=== PATIENT | female | born 1955 | race Caucasian/White ===

== ENCOUNTER 2020-09-05 09:49 | Outpatient (REF) | payer OTHER, SELFPAY ==
[2020-09-05 11:15] LABS: MANUAL DIFF FLAG NO
[2020-09-05 11:26] LABS: Basophils Percent Auto 0.7 % (0-2); Eosinophils Absolute Auto 0.1 X10*3/uL (0.0-0.4); Eosinophils Percent Auto 1.7 % (0-4); Hematocrit 42.7 % (37-47); Hemoglobin 14.4 g/dl (12.0-16.0); Imm Gran Abs Auto 0.02 X10*3/uL (0.00-0.03); Imm Gran Pct Auto 0.3 % (0.0-0.4); Lymphocytes Absolute Auto 1.6 X10*3/uL (1.2-4.9); Lymphocytes Percent Auto 28.3 % (20-40); Mean Corpuscular HGB Conc 33.7 g/dl (31.0-35.0); Mean Platelet Volume 11.6 fL (9.4-12.3); Monocytes Absolute Auto 0.4 X10*3/uL (0.1-1.2); Neutrophils Absolute Auto 3.6 X10*3/uL (2.0-8.3); Platelet Count 185 X10*3/uL (160-400); Red Blood Count 4.64 X10*6/uL (4.20-5.50); Red Cell Distribution Width 11.9 % (11.0-16.0); White Blood Count 5.8 X10*3/uL (4.8-10.8)
[2020-09-05 11:51] LABS: Estimated Average Glucose 177 mg/dL; Hemoglobin A1c % 7.8 %
[2020-09-05 12:01] LABS: Creatinine Urine 33.63 mg/dL; Microalbum/Creatinine Ratio Ur 14.8 ug/mg cr
[2020-09-05 12:14] LABS: Alanine Aminotransferase 27 U/L (0-31); Albumin Level 4.3 g/dL (3.5-5.0); Alkaline Phosphatase 74 U/L (39-117); Anion Gap 12 (12-20); Aspartate Amino Transferase 20 U/L (5-31); Bilirubin Total 0.7 mg/dL (0.0-1.0); Blood Urea Nitrogen 14 mg/dL (9-16); Calcium 8.9 mg/dL (8.4-10.2); Carbon Dioxide 28 mmol/L (22-29); Chloride 103 mmol/L (96-108); Cholesterol 151 mg/dL; Estimated Glomerular Filt Rate > 60; Glucose Fasting 164 mg/dL (60-99); HDL Cholesterol 42 mg/dL; Iron 115 mcg/dL (30-160); LDL Cholesterol Calculated 95 mg/dl; Percent Iron Saturation 32 % (15-50); Sodium 139 mmol/L (135-145); Total Iron Binding Capacity 355 mcg/dL (228-428); Total Protein 6.6 g/dL (6.5-8.0); Triglycerides 71 mg/dL; Unsaturated Iron Binding 240 ug/dL
[2020-09-05 12:29] LABS: Folate 14.3 ng/mL (> or = 4.0); Vitamin B12 1168 pg/mL (200-900)
[2020-09-10 13:57] LABS: Vitamin D 25-OH, D2 <4 ng/mL; Vitamin D 25-OH, D3 54 ng/mL; Vitamin D 25-OH, Total 54 ng/mL (30-100)
== END 2020-09-05 09:50 | disposition home or self-care (01) ==
LOC: HO.LAB 09:49
PROVIDERS: PCP Internal Medicine; Visit Provider Internal Medicine
DX: E55.9 Vitamin D deficiency, unspecified (principal); E11.9 Type 2 diabetes mellitus without complications; D64.9 Anemia, unspecified
CPT/HCPCS: 36415; 80053; 80061; 82043; 82306; 82607; 82746; 83036; 83540; 85025

== ENCOUNTER 2020-12-21 10:19 | Outpatient (REF) | payer OTHER, SELFPAY ==
[2020-12-21 11:07] LABS: Hemoglobin 14.4 g/dl (12.0-16.0); Mean Corpuscular HGB Conc 33.5 g/dl (31.0-35.0); Mean Corpuscular Hemoglobin 30.8 pg (27.0-33.0); Mean Corpuscular Volume 92.1 fL (80-98); Mean Platelet Volume 11.2 fL (9.4-12.3); Platelet Count 203 X10*3/uL (160-400); Red Blood Count 4.67 X10*6/uL (4.20-5.50); Red Cell Distribution Width 12.3 % (11.0-16.0); White Blood Count 6.2 X10*3/uL (4.8-10.8)
[2020-12-21 11:19] LABS: Estimated Average Glucose 174 mg/dL; Hemoglobin A1c % 7.7 %
[2020-12-21 11:39] LABS: Alanine Aminotransferase 18 U/L (0-31); Albumin Level 4.4 g/dL (3.5-5.0); Alkaline Phosphatase 74 U/L (39-117); Anion Gap 12 (12-20); Aspartate Amino Transferase 14 U/L (5-31); Bilirubin Total 0.7 mg/dL (0.0-1.0); Blood Urea Nitrogen 13 mg/dL (9-16); Calcium 9.2 mg/dL (8.4-10.2); Carbon Dioxide 29 mmol/L (22-29); Chloride 102 mmol/L (96-108); Cholesterol 170 mg/dL; Estimated Glomerular Filt Rate > 60; Glucose Fasting 167 mg/dL (60-99); HDL Cholesterol 50 mg/dL; Iron 161 mcg/dL (30-160); LDL Cholesterol Calculated 105 mg/dl; Percent Iron Saturation 46 % (15-50); Potassium 4.1 mmol/L (3.3-5.1); Sodium 139 mmol/L (135-145); Total Iron Binding Capacity 349 mcg/dL (228-428); Total Protein 6.8 g/dL (6.5-8.0); Triglycerides 77 mg/dL; Unsaturated Iron Binding 188 ug/dL
[2020-12-21 12:00] LABS: Thyroid Stimulating Hormone 1.81 uIU/mL (0.32-4.0)
[2020-12-21 12:40] LABS: Vitamin B12 > 2000 pg/mL (200-900)
[2020-12-25 12:02] LABS: Intrinsic Factor Antibodies Negative (Negative)
== END 2020-12-21 10:20 | disposition home or self-care (01) ==
LOC: HO.LAB 10:19
PROVIDERS: PCP Internal Medicine; Visit Provider Internal Medicine
DX: E55.9 Vitamin D deficiency, unspecified (principal); D64.9 Anemia, unspecified; E11.9 Type 2 diabetes mellitus without complications; E53.8 Deficiency of other specified B group vitamins
CPT/HCPCS: 36415; 80053; 80061; 82043; 82607; 83036; 83540; 84443; 85027; 86340

== ENCOUNTER 2021-09-13 09:16 | Outpatient (REF) | payer OTHER, SELFPAY ==
[2021-09-13 10:08] LABS: Hematocrit 41.4 % (37.0-47.0); Hemoglobin 13.7 g/dl (12.0-16.0); Mean Corpuscular HGB Conc 33.1 g/dl (31.0-35.0); Mean Corpuscular Hemoglobin 30.4 pg (27.0-33.0); Platelet Count 195 X10*3/uL (160-400); Red Cell Distribution Width 12.4 % (11.0-16.0); White Blood Count 6.2 X10*3/uL (4.8-10.8)
[2021-09-13 10:25] LABS: Estimated Average Glucose 177 mg/dL; Hemoglobin A1c % 7.8 %
[2021-09-13 10:36] LABS: Alanine Aminotransferase 21 U/L (0-31); Albumin Level 4.3 g/dL (3.5-5.0); Alkaline Phosphatase 73 U/L (39-117); Anion Gap 11 (12-20); Aspartate Amino Transferase 16 U/L (5-31); Bilirubin Total 0.5 mg/dL (0.0-1.0); Blood Urea Nitrogen 7 mg/dL (9-16); Calcium 9.1 mg/dL (8.4-10.2); Carbon Dioxide 28 mmol/L (22-29); Chloride 104 mmol/L (96-108); Cholesterol 186 mg/dL; Estimated Glomerular Filt Rate > 60; Glucose Fasting 143 mg/dL (60-99); HDL Cholesterol 48 mg/dL; Iron 120 mcg/dL (30-160); LDL Cholesterol Calculated 119 mg/dl; Percent Iron Saturation 36 % (15-50); Potassium 4.2 mmol/L (3.3-5.1); Sodium 139 mmol/L (135-145); Total Iron Binding Capacity 329 mcg/dL (228-428); Total Protein 6.6 g/dL (6.5-8.0); Triglycerides 98 mg/dL; Unsaturated Iron Binding 209 ug/dL
[2021-09-13 10:50] LABS: Creatinine Urine 40.95 mg/dL; Microalbum/Creatinine Ratio Ur 19.5 ug/mg cr
[2021-09-13 10:59] LABS: Vitamin D 25-OH Total 39.4 ng/mL (>30)
[2021-09-13 13:04] LABS: Folate 16.1 ng/mL (> or = 4.0); Vitamin B12 637 pg/mL (200-900)
== END 2021-09-13 09:17 | disposition home or self-care (01) ==
LOC: HO.LAB 09:16
PROVIDERS: PCP Internal Medicine; Visit Provider Internal Medicine
DX: D64.9 Anemia, unspecified (principal); E11.9 Type 2 diabetes mellitus without complications; E53.8 Deficiency of other specified B group vitamins; E55.9 Vitamin D deficiency, unspecified
CPT/HCPCS: 36415; 80053; 80061; 82043; 82306; 82607; 82746; 83036; 83540; 85027

== ENCOUNTER 2021-12-18 08:49 | Outpatient (REF) | payer OTHER, SELFPAY ==
[2021-12-18 09:35] LABS: Hematocrit 43.8 % (37.0-47.0); Hemoglobin 14.4 g/dl (12.0-16.0); Mean Corpuscular HGB Conc 32.9 g/dl (31.0-35.0); Mean Corpuscular Hemoglobin 30.4 pg (27.0-33.0); Mean Corpuscular Volume 92.4 fL (80.0-98.0); Platelet Count 214 X10*3/uL (160-400); Red Blood Count 4.74 X10*6/uL (4.20-5.50); Red Cell Distribution Width 12.4 % (11.0-16.0); White Blood Count 6.3 X10*3/uL (4.8-10.8)
[2021-12-18 09:43] LABS: Estimated Average Glucose 143 mg/dL; Hemoglobin A1c % 6.6 %
[2021-12-18 10:06] LABS: Alanine Aminotransferase 24 U/L (0-31); Albumin Level 4.3 g/dL (3.5-5.0); Alkaline Phosphatase 70 U/L (39-117); Anion Gap 13 (12-20); Aspartate Amino Transferase 17 U/L (5-31); Bilirubin Total 0.7 mg/dL (0.0-1.0); Blood Urea Nitrogen 9 mg/dL (9-16); Calcium 9.5 mg/dL (8.4-10.2); Carbon Dioxide 29 mmol/L (22-29); Chloride 103 mmol/L (96-108); Cholesterol 184 mg/dL; Estimated Glomerular Filt Rate > 60; Glucose Fasting 132 mg/dL (60-99); HDL Cholesterol 48 mg/dL; LDL Cholesterol Calculated 116 mg/dl; Potassium 4.5 mmol/L (3.3-5.1); Sodium 140 mmol/L (135-145); Triglycerides 102 mg/dL
[2021-12-18 10:31] LABS: Vitamin D 25-OH Total 39.2 ng/mL (>30)
[2021-12-19 21:24] LABS: Folate 9.3 ng/mL (> or = 4.0); Vitamin B12 594 pg/mL (200-900)
== END 2021-12-18 08:50 | disposition home or self-care (01) ==
LOC: HO.LAB 08:49
PROVIDERS: PCP Internal Medicine; Visit Provider Internal Medicine
DX: E11.9 Type 2 diabetes mellitus without complications (principal); D64.9 Anemia, unspecified; E53.8 Deficiency of other specified B group vitamins; E55.9 Vitamin D deficiency, unspecified
CPT/HCPCS: 36415; 80053; 80061; 82306; 82607; 82746; 83036; 85027

== ENCOUNTER 2022-02-05 15:14 | Outpatient (REF) | payer OTHER, SELFPAY ==
--- NOTE | ~2022-02-05 | MM_ITS ---
EXAMINATION: MM SCREENING DIGITAL BREAST TOMOSYNTHESIS, BILATERAL CLINICAL INFORMATION: Screening. Asymptomatic. The lifetime risk of breast cancer based on the Tyrer-Cuzick Model is 10%. COMPARISON: Outside mammography: 02/16/2021, 11/01/2019, 10/28/2018 ([facility]). TECHNIQUE: Digital breast tomosynthesis is performed in both the craniocaudal and mediolateral oblique views along with computer-aided detection (CAD). Synthesized 2D images are generated from the tomosynthesis. FINDINGS: There are scattered areas of fibroglandular density (ACR BI-RADS breast composition Category b). There are no significant masses, abnormal calcifications, or other abnormalities. Parenchymal pattern is similar to prior studies. There is no developing density or architectural abnormality. There are some stable rounded coarse calcifications again seen anterior left breast. The axilla and skin contours are unremarkable. No significant changes. MM/MM tomosynthesis screening BI IMPRESSION: No mammographic evidence of malignancy. ASSESSMENT: BI-RADS 2: Benign RECOMMENDATION: Routine annual mammography screening. This patient's information was entered into a reminder system with a target due date for their next mammogram.
== END 2022-02-05 15:15 | disposition home or self-care (01) ==
LOC: HO.MAMMO 15:14
PROVIDERS: Visit Provider Internal Medicine
DX: Z12.31 Encounter for screening mammogram for malignant neoplasm of breast (principal)
CPT/HCPCS: 77063; 77067

== ENCOUNTER 2022-09-13 09:32 | Outpatient (REF) | payer MEDICARE, OTHER, SELFPAY ==
[2022-09-13 10:35] LABS: Hemoglobin 14.6 g/dl (12.0-16.0); Mean Corpuscular HGB Conc 32.4 g/dl (31.0-35.0); Mean Corpuscular Hemoglobin 29.7 pg (27.0-33.0); Mean Corpuscular Volume 91.6 fL (80.0-98.0); Mean Platelet Volume 11.5 fL (9.4-12.3); Platelet Count 181 X10*3/uL (160-400); Red Blood Count 4.91 X10*6/uL (4.20-5.50); Red Cell Distribution Width 12.8 % (11.0-16.0); White Blood Count 7.1 X10*3/uL (4.8-10.8)
[2022-09-13 10:45] LABS: Estimated Average Glucose 177 mg/dL; Hemoglobin A1c % 7.8 %
[2022-09-13 11:25] LABS: Alanine Aminotransferase 27 U/L (0-31); Albumin Level 4.6 g/dL (3.5-5.0); Alkaline Phosphatase 92 U/L (39-117); Anion Gap 17 (12-20); Aspartate Amino Transferase 19 U/L (5-31); Bilirubin Total 0.7 mg/dL (0.0-1.0); Blood Urea Nitrogen 11 mg/dL (9-16); Calcium 9.3 mg/dL (8.4-10.2); Carbon Dioxide 24 mmol/L (22-29); Chloride 102 mmol/L (96-108); Estimated Glomerular Filt Rate > 60; Glucose Fasting 179 mg/dL (60-99); Potassium 4.2 mmol/L (3.3-5.1); Sodium 139 mmol/L (135-145); Total Protein 7.4 g/dL (6.5-8.0)
[2022-09-13 11:44] LABS: Vitamin B12 1462 pg/mL (200-900)
[2022-09-13 12:29] LABS: Folate 9.4 ng/mL (> or = 4.0)
== END 2022-09-13 09:33 | disposition home or self-care (01) ==
LOC: HO.LAB 09:32
PROVIDERS: PCP Internal Medicine; Visit Provider Internal Medicine
DX: E11.9 Type 2 diabetes mellitus without complications (principal); E55.9 Vitamin D deficiency, unspecified; D64.9 Anemia, unspecified
CPT/HCPCS: 36415; 80053; 82306; 82607; 82746; 83036; 85027

== ENCOUNTER 2022-11-19 14:28 | Outpatient (REF) | payer MEDICARE, OTHER, SELFPAY ==
--- NOTE | ~2022-11-19 | MM_ITS ---
EXAMINATION: BONE DENSITOMETRY CLINICAL INDICATION: Asymptomatic menopausal state. COMPARISON: Baseline BD dated 05/24/2020. TECHNIQUE: Using a [employer] DXA System (software version: 13.1) manufactured by [employer], dual-energy x-ray absorptiometry was performed of the lumbar spine and left hip. The images are of good technical quality. Summary results are attached. FINDINGS: AP SPINE L1-L4: Current: BMD 1.181 g/cm2, Z-score 0.9, T-score 0.0, normal, 5.2% increase from baseline (<5% change is not significant). Baseline: BMD 1.123 g/cm2. LEFT FEMUR, NECK: Current: BMD 0.830 g/cm2, Z-score -0.5, T-score -1.5, osteopenia. Baseline: BMD 0.858 g/cm2. LEFT FEMUR, TOTAL: Current: BMD 0.877 g/cm2, Z-score -0.3, T-score -1.0, normal, 1.7% decrease from baseline (<5% change is not significant). Baseline: BMD 0.892 g/cm2. IDENTIFIED RISK FACTORS: History of fracture (adult), menopause, part of stomach removed, secondary osteoporosis. HISTORY OF FRACTURE: Ankle. MEDICATIONS: Calcium, vitamin D. MM/XR DEXA axial skeleton IMPRESSION: 1. DIAGNOSIS: Osteopenia based on the lowest T-score value of -1.5 in the femoral neck applying World Health Organization criteria. 2. 10-YEAR FRACTURE RISK PREDICTION, FRAX: Major osteoporotic fracture (clinical spine, forearm, hip or shoulder) 14.7%. Hip fracture 1.6%. 3. Treatment Recommendations: NOF guidelines recommend consideration for treatment in postmenopausal women and men age 50 and older presenting with the following: -A hip or vertebral (clinical or morphometric) fracture. -T-score less than or equal to -2.5 at the femoral neck or spine after appropriate evaluation to exclude secondary causes. -Low bone mass at the hip or spine and a 10-year fracture probability by FRAX of greater than or equal to 3% for hip fracture or greater than or equal to 20% for major osteoporotic fracture based on the [place] adapted WHO algorithm. 4. Other Recommendations: All treatment decisions require clinical judgment and consideration of individual patient factors, including patient preferences, comorbidities, previous drug use, risk factors not captured in the FRAX model (e.g. frailty, falls, vitamin D deficiency, increased bone turnover, interval significant decline in bone density) and possible under or overestimation of fracture risk by FRAX. Additional medical evaluation for secondary cause of low bone mineral density may be appropriate. FUTURE SCAN RECOMMENDATION: People with diagnosed cases of osteoporosis or at high risk for fracture should have regular bone mineral density tests. For patients eligible for Medicare, routine testing is allowed once every 2 years. The testing frequency can be increased to one year for patients who have rapidly progressing disease, those who are receiving or discontinuing medical therapy to restore bone mass, or have additional risk factors.
== END 2022-11-19 14:29 | disposition home or self-care (01) ==
LOC: HO.MAMMO 14:28
PROVIDERS: PCP Internal Medicine; Visit Provider Internal Medicine
DX: Z13.820 Encounter for screening for osteoporosis (principal); Z78.0 Asymptomatic menopausal state
CPT/HCPCS: 77080

== ENCOUNTER → 2022-11-20 14:29 | Outpatient (BNVA) | payer MEDICARE, OTHER, SELFPAY | PROVIDERS: PCP Internal Medicine; Visit Provider Physician Assistant | DX: Z86.010 Personal history of colon polyps (principal) | CPT/HCPCS: 99202 ==

== ENCOUNTER 2023-01-23 16:21 | Outpatient (REF) | payer MEDICARE, OTHER, SELFPAY ==
[2023-01-23 18:03] LABS: Creatinine Urine 70.91 mg/dL; Microalbum/Creatinine Ratio Ur 69.1 ug/mg cr
[2023-01-23 18:07] LABS: Estimated Average Glucose 203 mg/dL; Hemoglobin A1c % 8.7 %
[2023-01-23 18:14] LABS: Alanine Aminotransferase 28 U/L (0-31); Albumin Level 4.4 g/dL (3.5-5.0); Alkaline Phosphatase 74 U/L (39-117); Anion Gap 15 (12-20); Aspartate Amino Transferase 21 U/L (5-31); Bilirubin Total 0.7 mg/dL (0.0-1.0); Blood Urea Nitrogen 10 mg/dL (9-16); Calcium 9.5 mg/dL (8.4-10.2); Carbon Dioxide 26 mmol/L (22-29); Chloride 104 mmol/L (96-108); Cholesterol 194 mg/dL; Estimated Glomerular Filt Rate > 60; Glucose Fasting 123 mg/dL (60-99); HDL Cholesterol 52 mg/dL; Iron 91 mcg/dL (30-160); LDL Cholesterol Calculated 117 mg/dl; Percent Iron Saturation 24 % (15-50); Potassium 4.1 mmol/L (3.3-5.1); Sodium 141 mmol/L (135-145); Total Iron Binding Capacity 378 mcg/dL (228-428); Total Protein 6.8 g/dL (6.5-8.0); Triglycerides 126 mg/dL; Unsaturated Iron Binding 287 ug/dL
[2023-01-23 18:35] LABS: TSH reflex Free T4 1.89 uIU/mL (0.32-4.0); Vitamin B12 1506 pg/mL (200-900)
== END 2023-01-23 16:22 | disposition home or self-care (01) ==
LOC: HO.LAB 16:21
PROVIDERS: PCP Internal Medicine; Visit Provider Internal Medicine
DX: Z00.00 Encounter for general adult medical examination without abnormal findings (principal); E55.9 Vitamin D deficiency, unspecified; D64.9 Anemia, unspecified; E11.9 Type 2 diabetes mellitus without complications; E53.8 Deficiency of other specified B group vitamins
CPT/HCPCS: 36415; 80053; 80061; 82043; 82607; 83036; 83540; 84443

== ENCOUNTER 2023-02-12 13:52 | Outpatient (REF) | payer MEDICARE, OTHER, SELFPAY ==
--- NOTE | ~2023-02-12 | MM_ITS ---
EXAMINATION: MM SCREENING DIGITAL BREAST TOMOSYNTHESIS, BILATERAL CLINICAL INFORMATION: Screening. Asymptomatic. The lifetime risk of breast cancer based on the Tyrer-Cuzick Model is 9%. COMPARISON: Mammography: February 05, 2022 and studies dating back to October 28, 2018 TECHNIQUE: Digital breast tomosynthesis is performed in both the craniocaudal and mediolateral oblique views along with computer-aided detection (CAD). Synthesized 2D images are generated from the tomosynthesis. FINDINGS: There are scattered areas of fibroglandular density (ACR BI-RADS breast composition Category b). There are no significant masses, abnormal calcifications, or other abnormalities. MM/MM tomosynthesis screening BI IMPRESSION: No significant changes from prior exam. ASSESSMENT: BI-RADS 1: Negative RECOMMENDATION: Routine annual mammography screening. This patient's information was entered into a reminder system with a target due date for their next mammogram.
== END 2023-02-12 13:53 | disposition home or self-care (01) ==
LOC: HO.MAMMO 13:52
PROVIDERS: PCP Internal Medicine; Visit Provider Internal Medicine
DX: Z12.31 Encounter for screening mammogram for malignant neoplasm of breast (principal)
CPT/HCPCS: 77063; 77067

== ENCOUNTER 2023-02-18 12:15 | Day surgery (SDC) | payer MEDICARE, OTHER, SELFPAY ==
[2023-02-05 12:37] VITALS: BMI 28.4
--- NOTE | 2023-02-17 13:18 | HO.ANESPROP2 ---
HPI - Anesthesia Eval Consult details Narrative: 67yo F for Colonoscopy [facility] Active Problems Active Problems: All Active Problems (Updated 11/20/22 @ 15:08 by Linda Dowling PA-C) H/O gastric bypass (Acute) History of adenomatous polyp of colon (Acute) Postmenopausal (Acute) PTSD (post-traumatic stress disorder) (Acute) Knee injury (Acute) Vitamin B 12 deficiency (Acute) Annual physical exam (Acute) Normal Pap smear (Acute) Osteopenia (Acute) Mammogram normal (Acute) Dysplastic nevus of face (Acute) Vitamin D deficiency (Acute) Anemia (Acute) DM type 2 (diabetes mellitus, type 2) (Acute) Past Medical History Medical History (Updated 11/20/22 @ 15:08 by Linda Dowling PA-C) Anemia Annual physical exam DM type 2 (diabetes mellitus, type 2) Dysplastic nevus of face History of mammogram Iron deficiency Knee injury Mammogram normal Normal Pap smear Osteopenia PTSD (post-traumatic stress disorder) Vitamin B 12 deficiency Vitamin D deficiency Family History Family History (Updated 01/27/23 @ 07:50 by Doris Devries [facility]) Father Cancer Mother No problems noted. Brother Substance use disorder Brother No problems noted. Sister No problems noted. Son No problems noted. 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: No Hearing needs: No Vision needs: Yes Meds Allergies Allergy/AdvReac Type Severity Reaction Status Date / Time No Known Allergies Allergy Verified 01/27/23 07:49 Home Medications Medication Instructions Recorded Confirmed Last Taken Type calcium carbonate [Calcium 600] 600 mg PO DAILY 09/18/20 02/05/23 Unknown History magnesium citrate 100 mg tablet 100 mg PO DAILY 09/18/20 02/05/23 Unknown History mecobalamin (vitamin B12) 5,000 5,000 mcg PO DAILY 09/18/20 02/05/23 Unknown History mcg disintegrating tablet omega 1-zpa-sco-fish oil 1,000 mg 2 cap PO DAILY 12/25/20 02/05/23 Unknown History (120 mg-180 mg) capsule (Fish Oil) Exam Exam Date and Time: February 17, 2023 1318 Height,Weight and Vital Signs: Height 5 ft 10 in Weight 89.811 kg Pertinent Lab Results Pertinent Lab Results: Laboratory Tests 09/13/22 01/23/23 09:51 16:38 WBC 7.1 Hgb 14.6 Hct 45.0 Plt Count 181 Sodium 141 Potassium 4.1 Chloride 104 Carbon Dioxide 26 BUN 10 Creatinine 0.71 Assessment and Plan Assessment Anesthesia Assessment: Chart Reviewed
[2023-02-18 12:23] VITALS: BP 144/82; PULSE 64; RESP 20; TEMP 36.4; O2SAT 98
[2023-02-18 12:42] LABS: Glucose, Whole Blood 126 mg/dL (60-115)
--- NOTE | 2023-02-18 12:42 | P.HPSUR_ITS ---
Pre-Procedural Eval Section A Date of Service: 02/18/23 Section B Chief Complaint: Personal history of colonic polyps Relevant Family History (Specify if Yes): No Relevant Social History: None Present Medications: see Short Stay Collaborative assessment Medical History: Significant History (Anemia Annual physical exam DM type 2 (diabetes mellitus, type 2) Dysplastic nevus of face History of mammogram Iron deficiency Knee injury Mammogram normal Normal Pap smear Osteopenia PTSD (post- traumatic stress disorder) Vitamin B 12 deficiency Vitamin D deficiency) History of Previous Operations: Relevant previous surgery/procedure and date(s) (H/O gastric bypass History of colonoscopy History of hemicolectomy) Allergies: Allergies Allergy/AdvReac Type Severity Reaction Status Date / Time No Known Allergies Allergy Verified 01/27/23 07:49 Review of Systems Sugical H&P ROS: Negative: Constitution, Cardiovascular, Respiratory, Neurological, Psychiatric, Hem-Onc, Allergic/Immunologic, Gastrointestinal, Genitourinary, Musculoskeletal, Integumentary, Endocrine and Eyes/Ears/Nose/Throat Exam Surgical H&P Exam: Normal: HEENT, Normal: Heart, Normal: Lungs, Normal: Extremities, Normal: Abdomen, Normal: Skin and Normal: Neurological Plan Diagnosis/Plan: Unchanged I have reviewed the history and physical and performed a pertinent physical examination on my patient. No changes have occurred unless specified. Time Spent With Patient Time: Total time managing care of this patient today ____ minutes.
[2023-02-18] MEDS: Lactated Ringers 1,000 ML 100 ML IVCONT (13:00)
--- NOTE | 2023-02-18 14:44 | W.PM.OPN ---
Operative Note Operative Note Date of Service: 02/18/23 Narrative: Operative Information Procedure Description: Colonoscopy Indication: surveillance for polyps -hx of right hemicolectomy Anesthesia: Unsedated, no anesthesia used COLONOSCOPY Instrument: Olympus variable stiffness pediatric scope 190L Colonoscopy Monitoring: Vital signs and clinical assessment, continuous EKG monitoring, Pulse oximetry, and blood pressure monitoring were done throughout the procedure. Colon withdrawal time was 12 minutes. Procedure: The patient was placed in the left lateral decubitis position. After a digital rectal examination of the ano-rectum, the video colonoscope was inserted into the rectum and advanced through the colon to the cecum/TI. The colonoscope was slowly withdrawn in a retrograde panoramic fashion and the colon mucosa was carefully examined including a retroflexed view of the rectum. Findings and interventions are described below. Procedure Difficulty: easy Findings: ileo colonic anastomosis- normal Transverse Colon -normal Descending Colon:normal Sigmoid Colon: normal Rectum: Retroflexion with small internal hemorrhoids, grade I Anorectum - normal Colon preparation: [place] Bowel Preparation Scale Right colon; n/a Transverse colon: 2 Left colon; 2 (0 = Unprepared colon segment with mucosa not seen due to solid stool that cannot be cleared. 1 = Portion of mucosa of the colon segment seen, but other areas of the colon segment not well seen due to staining, residual stool and/or opaque liquid. 2 = Minor amount of residual staining, small fragments of stool and/or opaque liquid, but mucosa of colon segment seen well. 3 = Entire mucosa of colon segment seen well with no residual staining, small fragments of stool or opaque liquid) Impression and Post Procedure Diagnosis: internal hemorrhoids Plan: High fiber diet leaflet Avoid straining at stool, epsom salts and sitz bath, anusol supps or cream Repeat Colonoscopy in 5 years or earlier if clinically indicated Above findings were reviewed with the patient and relevant handouts were provided if indicated.
[2023-02-18 14:58] VITALS: BP 154/85; PULSE 64; RESP 16; O2SAT 98
[2023-02-18 15:19] VITALS: BP 157/90; PULSE 69; RESP 20; O2SAT 97
[2023-02-18 15:28] VITALS: BP 150/91; PULSE 61; RESP 16; TEMP 36.7; O2SAT 95
== END 2023-02-18 15:56 | disposition home or self-care (01) ==
PROVIDERS: PCP Internal Medicine; Visit Provider Internal Medicine Gastroenterology
PROC: 0DJD8ZZ Inspection of Lower Intestinal Tract, Via Natural or Artificial Opening Endoscopic (ICD-10-PCS; CPT 45378; principal; 2023-02-18 13:10)
DX: Z12.11 Encounter for screening for malignant neoplasm of colon (principal); Z86.010 Personal history of colon polyps; Z90.49 Acquired absence of other specified parts of digestive tract; Z98.0 Intestinal bypass and anastomosis status; K64.0 First degree hemorrhoids; D64.9 Anemia, unspecified; E61.1 Iron deficiency; E53.8 Deficiency of other specified B group vitamins; E55.9 Vitamin D deficiency, unspecified; D23.30 Other benign neoplasm of skin of unspecified part of face; E11.9 Type 2 diabetes mellitus without complications; Z79.85 Long-term (current) use of injectable non-insulin antidiabetic drugs; Z79.899 Other long term (current) drug therapy; Z87.891 Personal history of nicotine dependence; Z98.84 Bariatric surgery status
CPT/HCPCS: G0105; 82947

== ENCOUNTER → 2023-03-31 12:29 | Outpatient (BNVA) | payer MEDICARE, OTHER, SELFPAY | PROVIDERS: PCP Internal Medicine; Referring Provider Internal Medicine; Visit Provider Physician Assistant | DX: K64.8 Other hemorrhoids (principal); Z86.010 Personal history of colon polyps; Z98.890 Other specified postprocedural states | CPT/HCPCS: 99212 ==

== ENCOUNTER 2023-04-25 09:52 | Outpatient (REF) | payer MEDICARE, OTHER, SELFPAY ==
[2023-04-25 10:10] LABS: MANUAL DIFF FLAG NO
[2023-04-25 11:04] LABS: Basophils Absolute Auto 0.1 X10*3/uL (0.0-0.2); Eosinophils Absolute Auto 0.2 X10*3/uL (0.0-0.4); Eosinophils Percent Auto 3.2 % (0-4); Hematocrit 41.7 % (37.0-47.0); Hemoglobin 13.6 g/dl (12.0-16.0); Imm Gran Abs Auto 0.02 X10*3/uL (0.00-0.03); Imm Gran Pct Auto 0.3 % (0.0-0.4); Lymphocytes Absolute Auto 1.7 X10*3/uL (1.2-4.9); Mean Corpuscular HGB Conc 32.6 g/dl (31.0-35.0); Mean Corpuscular Hemoglobin 30.3 pg (27.0-33.0); Mean Corpuscular Volume 92.9 fL (80.0-98.0); Mean Platelet Volume 11.1 fL (9.4-12.3); Monocytes Absolute Auto 0.4 X10*3/uL (0.1-1.2); Monocytes Percent Auto 7.1 % (2-11); Neutrophils Absolute Auto 3.5 x10*3/uL (2.0-8.3); Neutrophils Percent Auto 59.4 % (45-73); Platelet Count 193 X10*3/uL (160-400); Red Blood Count 4.49 X10*6/uL (4.20-5.50); Red Cell Distribution Width 12.4 % (11.0-16.0); White Blood Count 5.9 X10*3/uL (4.8-10.8)
[2023-04-25 11:18] LABS: Estimated Average Glucose 160 mg/dL; Hemoglobin A1c % 7.2 %
[2023-04-25 11:55] LABS: Creatinine Urine 40.86 mg/dL; Microalbum/Creatinine Ratio Ur 24.4 ug/mg cr
[2023-04-25 12:17] LABS: Alanine Aminotransferase 23 U/L (0-31); Albumin Level 4.2 g/dL (3.5-5.0); Alkaline Phosphatase 66 U/L (39-117); Anion Gap 14 (12-20); Aspartate Amino Transferase 20 U/L (5-31); Bilirubin Total 0.8 mg/dL (0.0-1.0); Blood Urea Nitrogen 8 mg/dL (9-16); Calcium 9.3 mg/dL (8.4-10.2); Carbon Dioxide 26 mmol/L (22-29); Chloride 105 mmol/L (96-108); Estimated Glomerular Filt Rate > 60; Glucose Fasting 130 mg/dL (60-99); Sodium 141 mmol/L (135-145); Total Protein 6.9 g/dL (6.5-8.0)
[2023-04-25 12:43] LABS: Folate 9.5 ng/mL (> or = 4.0)
[2023-04-25 13:54] LABS: Vitamin B12 1278 pg/mL (200-900)
== END 2023-04-25 09:53 | disposition home or self-care (01) ==
LOC: HO.LAB 09:52
PROVIDERS: PCP Internal Medicine; Visit Provider Internal Medicine
DX: E11.9 Type 2 diabetes mellitus without complications (principal); E53.8 Deficiency of other specified B group vitamins; D64.9 Anemia, unspecified
CPT/HCPCS: 36415; 80053; 82043; 82607; 82746; 83036; 85025

== ENCOUNTER 2023-08-20 11:45 | Outpatient (REF) | payer MEDICARE, OTHER, SELFPAY | END 2023-08-20 11:46 | disposition home or self-care (01) | LOC: HO.LAB 11:45 | PROVIDERS: PCP Internal Medicine; Visit Provider Internal Medicine | DX: D64.9 Anemia, unspecified (principal); E11.9 Type 2 diabetes mellitus without complications; M85.80 Other specified disorders of bone density and structure, unspecified site; E55.9 Vitamin D deficiency, unspecified | CPT/HCPCS: 36415; 80053; 80061; 82043; 82306; 82570; 82607; 82746; 83036; 83540; 85025 ==

== ENCOUNTER 2023-08-28 07:33 | Outpatient (AMB) | payer MEDICARE, OTHER, SELFPAY ==
--- NOTE | 2023-08-28 07:38 | A.OFFPC_ITS ---
Vital Signs 08/28/23 07:40 Height 5 ft 10 in Weight 195 lb 2 oz BMI 28.0 BP 120/82 Blood Pressure Location Lt brachial Position Sitting Pulse 64 Pulse Source Pulse Oximeter Pulse Oximetry (%) 97 Oxygen Delivery Method Room Air Intake Visit Reasons: 4 month Follow up A1C Allergies No Known Allergies Allergy (Verified 08/28/23 07:40) Medication List - Last Reconciled 08/28/23 by Amie Salmeron MD calcium carbonate (Calcium 600) 600 mg PO .twice weekly dapagliflozin propanediol (Farxiga) 5 mg PO DAILY dulaglutide (Trulicity) 4.5 mg (0.5 mL) subcut QWEEK magnesium citrate 100 mg PO .twice a week mecobalamin (vitamin B12) 5,000 mcg PO .twice weekly sertraline 50 mg PO DAILY Tobacco use date assessed: 04/29/23 Dental Screening Dental Screen Date: 08/28/23 Did you have a dental visit in the last 12 months?: Yes Did you have a dental problem in the last 6 months where you did not have access to dental care?: No Was dental information given to patient?: Patient has dentist HPI 4 month Follow up A1C HPI Details Patient presents for the follow-up of type 2 diabetes. [facility] Medical History PTSD (post-traumatic stress disorder) Knee injury Annual physical exam Normal Pap smear Osteopenia Dysplastic nevus of face History of mammogram Iron deficiency Vitamin B 12 deficiency Vitamin D deficiency Anemia DM type 2 (diabetes mellitus, type 2) Surgical History History of hemicolectomy History of colonoscopy H/O gastric bypass Family History Father Cancer Mother No problems noted. Brother Substance use disorder Brother No problems noted. Sister No problems noted. Son No problems noted. 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 How often do you have a drink containing alcohol?: Monthly or less 2. How many drinks containing alcohol do you have on a typical day when you are drinking?: 1 or 2 3. How often do you have six or more drinks on one occasion?: Never Total Score: 1 Score Reviewed/Action Taken: No VIDYA-7 AMB Questionnaire VIDYA-7 Date VIDYA - 7 assessed: 04/29/23 Source: Developed by Drs. Jose L Velazquez, Jewell Lassiter, Frank Batista and colleagues, with an educational hilary from [employer]. Review of Systems Const All systems reviewed & are unremarkable except as noted in HPI and below Reports no additional complaints Eyes Reports no additional complaints ENT Reports no additional complaints Card Reports no additional complaints Resp Reports no additional complaints GI Reports no additional complaints Reports no additional complaints Physical exam (Primary Care) Vital Signs: Last Vital Signs Pulse 64 08/28/23 07:40 BP 120/82 08/28/23 07:40 Pulse Ox 97 08/28/23 07:40 Oxygen Delivery Method Room Air 08/28/23 07:40 BMI result Body Mass Index 28.0 Tobacco/Smoking Status: Tobacco use Status Tobacco use date assessed 04/29/23 08/28/23 07:42 Patient Tobacco Use Status Former Tobacco user 08/28/23 07:42 e-Cigarette/Vaping Use Never Used 08/28/23 07:42 Thrive Assessment: Date of Thrive Assessment Date Thrive assessed 04/29/23 08/28/23 07:42 Const General: no acute distress HENNC Head: Yes normal to inspection Eyes General: appearance normal, both eyes and all related structures Neck Neck: Yes no lymphadenopathy and Yes supple Resp Effort & Inspection: normal respiratory effort Auscultation: clear to auscultation bilaterally Cardio Rhythm: regular rhythm Heart sounds: S1 normal heart sound present and S2 normal heart sound present GI Inspection: Yes normal to inspection Palpation (GI): Soft to palpation Auscultation: normal bowel sounds Assessment and Plan Assessment & Plan (1) DM type 2 (diabetes mellitus, type 2): Code(s): E11.9 - Type 2 diabetes mellitus without complications Plan: A1C is 7.8, ADA diet, increase exercise discussed, add [place] to Trulicity, f/u in 3 months (2) Hyperlipidemia: Code(s): E78.5 - Hyperlipidemia, unspecified Plan: low cholesterol diet, increase exercise Orders: Orders Complete Blood Count Auto Diff 3 Months E11.9 - Type 2 diabetes mellitus without complications, E78.5 - Hyperlipidemia, unspecified Vitamin B12 and Folate 3 Months E11.9 - Type 2 diabetes mellitus without complications, E78.5 - Hyperlipidemia, unspecified Comprehensive [place]. Panel Fast 3 Months E11.9 - Type 2 diabetes mellitus without complications, E78.5 - Hyperlipidemia, unspecified Lipid Panel 3 Months E11.9 - Type 2 diabetes mellitus without complications, E78.5 - Hyperlipidemia, unspecified Hemoglobin A1c 3 Months E11.9 - Type 2 diabetes mellitus without complications, E78.5 - Hyperlipidemia, unspecified Microalbumin, Random (w Creat) 3 Months E11.9 - Type 2 diabetes mellitus without complications, E78.5 - Hyperlipidemia, unspecified Medications: New dapagliflozin propanediol (Farxiga) 5 mg PO DAILY 90 tabs 1RF Coding Level of Care Code Est Pt Level 4 (08537) Diagnoses DM type 2 (diabetes mellitus, type 2) E11.9 Hyperlipidemia E78.5
[2023-08-28 07:40] VITALS: BP 120/82; PULSE 64; O2SAT 97; BMI 28.0
== END 2023-08-28 09:31 | disposition home or self-care (01) ==
PROVIDERS: PCP Internal Medicine; Visit Provider Internal Medicine
DX: E11.9 Type 2 diabetes mellitus without complications (principal); E78.5 Hyperlipidemia, unspecified
CPT/HCPCS: 99214

== ENCOUNTER 2024-02-13 09:06 | Outpatient (REF) | payer MEDICARE, OTHER, SELFPAY ==
[2024-02-13 09:29] LABS: MANUAL DIFF FLAG NO
[2024-02-13 09:51] LABS: Basophils Absolute Auto 0.1 X10*3/uL (0.0-0.2); Basophils Percent Auto 0.8 % (0-2); Eosinophils Absolute Auto 0.2 X10*3/uL (0.0-0.4); Hematocrit 42.8 % (37.0-47.0); Hemoglobin 13.6 g/dl (12.0-16.0); Imm Gran Abs Auto 0.02 X10*3/uL (0.00-0.03); Imm Gran Pct Auto 0.3 % (0.0-0.4); Lymphocytes Absolute Auto 1.7 X10*3/uL (1.2-4.9); Lymphocytes Percent Auto 28.5 % (20-40); Mean Corpuscular HGB Conc 31.8 g/dl (31.0-35.0); Mean Corpuscular Hemoglobin 27.5 pg (27.0-33.0); Mean Corpuscular Volume 86.6 fL (80.0-98.0); Mean Platelet Volume 10.7 fL (9.4-12.3); Monocytes Absolute Auto 0.4 X10*3/uL (0.1-1.2); Monocytes Percent Auto 7.3 % (2-11); Neutrophils Absolute Auto 3.6 x10*3/uL (2.0-8.3); Neutrophils Percent Auto 60.1 % (45-73); Platelet Count 205 X10*3/uL (160-400); Red Blood Count 4.94 X10*6/uL (4.20-5.50); Red Cell Distribution Width 14.1 % (11.0-16.0)
[2024-02-13 10:09] LABS: Estimated Average Glucose 154 mg/dL
[2024-02-13 11:19] LABS: Alanine Aminotransferase 18 U/L (0-31); Albumin Level 4.2 g/dL (3.5-5.0); Alkaline Phosphatase 77 U/L (39-117); Anion Gap 14 (12-20); Aspartate Amino Transferase 18 U/L (5-31); Bilirubin Total 0.6 mg/dL (0.0-1.0); Blood Urea Nitrogen 11 mg/dL (9-16); Calcium 9.1 mg/dL (8.4-10.2); Carbon Dioxide 25 mmol/L (22-29); Chloride 106 mmol/L (96-108); Cholesterol 215 mg/dL (<200); Estimated Glomerular Filt Rate > 60; Glucose Fasting 137 mg/dL (60-99); HDL Cholesterol 67 mg/dL (>40); LDL Cholesterol Calculated 129 mg/dL (<100); Potassium 4.2 mmol/L (3.3-5.1); Sodium 141 mmol/L (135-145); Total Protein 7.3 g/dL (6.5-8.0); Triglycerides 99 mg/dL (<150)
[2024-02-13 11:44] LABS: Folate 9.9 ng/mL (> or = 4.0); Vitamin B12 759 pg/mL (200-900)
[2024-02-13 13:08] LABS: Creatinine Urine 46.14 mg/dL; Microalbum/Creatinine Ratio Ur 17.3 ug/mg cr (<30)
== END 2024-02-13 09:07 | disposition home or self-care (01) ==
LOC: HO.LAB 09:06
PROVIDERS: PCP Internal Medicine; Visit Provider Internal Medicine
DX: E78.5 Hyperlipidemia, unspecified (principal); E11.9 Type 2 diabetes mellitus without complications
CPT/HCPCS: 36415; 80053; 80061; 82043; 82570; 82607; 82746; 83036; 85025

== ENCOUNTER 2024-02-18 13:48 | Outpatient (REF) | payer MEDICARE, OTHER, SELFPAY ==
--- NOTE | ~2024-02-18 | MM_ITS ---
EXAMINATION: MM SCREENING DIGITAL BREAST TOMOSYNTHESIS, BILATERAL CLINICAL INFORMATION: Screening. Asymptomatic. COMPARISON: Mammography: This study is compared with prior exams dating back to 2019. TECHNIQUE: Digital breast tomosynthesis is performed in both the craniocaudal and mediolateral oblique views along with computer-aided detection (CAD). Synthesized 2D images are generated from the tomosynthesis. FINDINGS: There are scattered areas of fibroglandular density (ACR BI-RADS breast composition Category b). There are no significant masses, abnormal calcifications, or other abnormalities. There are unchanged, benign calcifications in the upper outer quadrant of the left breast. MM/MM tomosynthesis screening BI IMPRESSION: No mammographic evidence of malignancy. ASSESSMENT: BI-RADS BI-RADS 1 - Negative RECOMMENDATION: Routine annual mammography screening. 1 year F/U This examination should not preclude the clinical evaluation of a suspicious palpable abnormality. This patient's information was entered into a reminder system with a target due date for their next mammogram.
== END 2024-02-18 13:49 | disposition home or self-care (01) ==
LOC: HO.MAMMO 13:48
PROVIDERS: PCP Internal Medicine; Visit Provider Internal Medicine
DX: Z12.31 Encounter for screening mammogram for malignant neoplasm of breast (principal)
CPT/HCPCS: 77063; 77067

== ENCOUNTER → 2024-02-18 14:15 | Outpatient (BNV) | payer MEDICARE, OTHER, SELFPAY | PROVIDERS: PCP Internal Medicine; Visit Provider Radiology Diagnostic Radiology | DX: Z12.31 Encounter for screening mammogram for malignant neoplasm of breast (principal) | CPT/HCPCS: 77063; 77067 ==

== ENCOUNTER 2024-03-17 08:44 | Outpatient (AMB) | payer MEDICARE, OTHER, SELFPAY ==
--- NOTE | 2024-03-17 08:47 | A.OFFPC_ITS ---
Vital Signs 03/17/24 08:48 Height 5 ft 10 in Weight 192 lb BMI 27.5 BP 128/78 Blood Pressure Location Lt brachial Position Sitting Pulse 67 Pulse Source Pulse Oximeter Pulse Oximetry (%) 97 Oxygen Delivery Method Room Air Intake Visit Reasons: Annual PE Intake Note: Pt is here today for PE. Allergies No Known Allergies Allergy (Verified 03/17/24 08:56) Medication List - Last Reconciled 03/17/24 by Amie Salmeron MD calcium carbonate (Calcium 600) 600 mg PO .twice weekly dapagliflozin propanediol (Farxiga) 5 mg PO DAILY dulaglutide (Trulicity) 4.5 mg (0.5 mL) subcut QWEEK magnesium citrate 100 mg PO .twice a week mecobalamin (vitamin B12) 5,000 mcg PO .twice weekly sertraline 50 mg PO DAILY tirzepatide (Mounjaro) 10 mg (0.5 mL) subcut QWEEK Tobacco use date assessed: 03/17/24 Fall risk assessment: No Falls in past year Last assessed Fall Risk: 03/17/24 Dental Screening Dental Screen Date: 03/17/24 Did you have a dental visit in the last 12 months?: Yes Did you have a dental problem in the last 6 months where you did not have access to dental care?: No Was dental information given to patient?: Patient has dentist [facility] Medical History PTSD (post-traumatic stress disorder) Knee injury Annual physical exam Normal Pap smear Osteopenia Dysplastic nevus of face History of mammogram Iron deficiency Vitamin B 12 deficiency Vitamin D deficiency Anemia DM type 2 (diabetes mellitus, type 2) Surgical History History of hemicolectomy History of colonoscopy H/O gastric bypass Family History Father Cancer Mother No problems noted. Brother Substance use disorder Brother No problems noted. Sister No problems noted. Son No problems noted. 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 How often do you have a drink containing alcohol?: Monthly or less 2. How many drinks containing alcohol do you have on a typical day when you are drinking?: 1 or 2 3. How often do you have six or more drinks on one occasion?: Never Total Score: 1 VIDYA-7 AMB Questionnaire VIDYA-7 Date VIDYA - 7 assessed: 04/29/23 Source: Developed by Drs. JoseL Velazquez, Jewell Lassiter, Frank Batista and colleagues, with an educational hilary from [employer]. Review of Systems Const All systems reviewed & are unremarkable except as noted in HPI and below Eyes Reports no additional complaints ENT Reports no additional complaints Card Reports no additional complaints Resp Reports no additional complaints GI Reports no additional complaints Physical exam (Primary Care) Vital Signs: Last Vital Signs Pulse 67 03/17/24 08:48 BP 128/78 03/17/24 08:48 Pulse Ox 97 03/17/24 08:48 Oxygen Delivery Method Room Air 03/17/24 08:48 BMI result Body Mass Index 27.5 Tobacco/Smoking Status: Tobacco use Status Tobacco use date assessed 03/17/24 03/17/24 09:00 Patient Tobacco Use Status Former Tobacco user 03/17/24 08:48 e-Cigarette/Vaping Use Never Used 03/17/24 08:48 Thrive Assessment: Date of Thrive Assessment Date Thrive assessed 04/29/23 03/17/24 08:48 Const General: no acute distress HENMT Head: Yes normal to inspection Mouth: Normal oral and palatal mucosa present Throat: Yes posterior oropharynx normal Eyes General: appearance normal, both eyes and all related structures Neck Neck: Yes supple Resp Effort & Inspection: normal respiratory effort Auscultation: clear to auscultation bilaterally Cardio Rhythm: regular rhythm Heart sounds: S1 normal heart sound present and S2 normal heart sound present GI Inspection: Yes normal to inspection Palpation (GI): Soft to palpation Percussion: Yes normal to percussion Auscultation: normal bowel sounds Assessment and Plan Assessment & Plan (1) Postmenopausal: Code(s): Z78.0 - Asymptomatic menopausal state Plan: check Check DEXA patient is up-to-date with the mammogram (2) DM type 2 (diabetes mellitus, type 2): Code(s): E11.9 - Type 2 diabetes mellitus without complications Plan: A1C IS DOWN TO 7.0 AND PATIENT HAS BEEN TOLERATING TRULICITY 4.5 MG WELL BUT THE BECAUSE OF SHORTAGE SHE HAS NOT BEEN ABLE TO GET REGULAR SUPPLY.. MOUNJARO 10 MG WEEKLY WILL BE TRIED INSTEAD. SHE WILL CONTINUE FARXIGA ADA DIET and FOLLOW- UP IN 3 MONTHS WITH A FASTING LABS BEFORE (3) Anemia: Comment: s/p gastric bypass, hemicolectomy Code(s): D64.9 - Anemia, unspecified Plan: MONITOR CBC AND IRON (4) Vitamin B 12 deficiency: Code(s): E53.8 - Deficiency of other specified B group vitamins Plan: Continue B12 supplement (5) Annual physical exam: Code(s): Z00.00 - Encounter for general adult medical examination without abnormal findings Plan: Well-balanced diet regular physical activity discussed with the patient she is up-to-date with the mammogram and colonoscopy DEXA will be scheduled (6) Vitamin D deficiency: Code(s): E55.9 - Vitamin D deficiency, unspecified (7) Hyperlipidemia: Comment: Patient declined statin Code(s): E78.5 - Hyperlipidemia, unspecified Plan: Low-cholesterol diet regular physical activity and monitor lipid profile Orders: Orders Hemoglobin A1c 3 Months D64.9 - Anemia, unspecified, E11.9 - Type 2 diabetes mellitus without complications, E53.8 - Deficiency of other specified B group vitamins, E55.9 - Vitamin D deficiency, unspecified, E78.5 - Hyperlipidemia, unspecified, Z00.00 - Encounter for general adult medical examination without abnormal findings Complete Blood Count Auto Diff 3 Months D64.9 - Anemia, unspecified, E11.9 - Type 2 diabetes mellitus without complications, E53.8 - Deficiency of other specified B group vitamins, E55.9 - Vitamin D deficiency, unspecified, E78.5 - Hyperlipidemia, unspecified, Z00.00 - Encounter for general adult medical examination without abnormal findings Microalbumin, Random (w Creat) 3 Months D64.9 - Anemia, unspecified, E11.9 - Type 2 diabetes mellitus without complications, E53.8 - Deficiency of other spec ified B group vitamins, E55.9 - Vitamin D deficiency, unspecified, E78.5 - Hyperlipidemia, unspecified, Z00.00 - Encounter for general adult medical examination without abnormal findings Vitamin B12 and Folate 3 Months D64.9 - Anemia, unspecified, E53.8 - Deficiency of other specified B group vitamins, E55.9 - Vitamin D deficiency, unspecified Vitamin D 25-OH Total 3 Months D64.9 - Anemia, unspecified, E53.8 - Deficiency of other specified B group vitamins, E55.9 - Vitamin D deficiency, unspecified IRON PROFILE 3 Months D64.9 - Anemia, unspecified, E53.8 - Deficiency of other specified B group vitamins, E55.9 - Vitamin D deficiency, unspecified XR DEXA axial skeleton Today Z78.0 - Asymptomatic menopausal state Comprehensive [place]. Panel Fast 3 Months D64.9 - Anemia, unspecified, E11.9 - Type 2 diabetes mellitus without complications, E53.8 - Deficiency of other specified B group vitamins, E55.9 - Vitamin D deficiency, unspecified, E78.5 - Hyperlipidemia, unspecified, Z00.00 - Encounter for general adult medical examination without abnormal findings Lipid Panel 3 Months D64.9 - Anemia, unspecified, E11.9 - Type 2 diabetes mellitus without complications, E53.8 - Deficiency of other specified B group vitamins, E55.9 - Vitamin D deficiency, unspecified, E78.5 - Hyperlipidemia, unspecified, Z00.00 - Encounter for general adult medical examination without abnormal findings Medications: New tirzepatide (Mounjaro) 10 mg (0.5 mL) subcut QWEEK 6 mL 0RF tirzepatide (Mounjaro) 10 mg (0.5 mL) subcut QWEEK 6 mL 0RF tirzepatide (Mounjaro) 10 mg (0.5 mL) subcut QWEEK 6 mL 0RF Discontinued dulaglutide (Trulicity) Discontinued Reason: Doctor's Order 4.5 mg (0.5 mL) subcut QWEEK 6 mL 1RF Coding Level of Care Code Est Pt Prev Care >65y(20937) Diagnoses Postmenopausal Z78.0 DM type 2 (diabetes mellitus, type 2) E11.9 Anemia D64.9 Vitamin B 12 deficiency E53.8 Annual physical exam Z00.00 Vitamin D deficiency E55.9 Hyperlipidemia E78.5
[2024-03-17 08:48] VITALS: BP 128/78; PULSE 67; O2SAT 97; BMI 27.5
== END 2024-03-17 09:35 | disposition home or self-care (01) ==
LOC: HO.HMGC 08:44
PROVIDERS: PCP Internal Medicine; Visit Provider Internal Medicine
DX: Z78.0 Asymptomatic menopausal state (principal); E11.9 Type 2 diabetes mellitus without complications; D64.9 Anemia, unspecified; E53.8 Deficiency of other specified B group vitamins; Z00.00 Encounter for general adult medical examination without abnormal findings; E55.9 Vitamin D deficiency, unspecified; E78.5 Hyperlipidemia, unspecified
CPT/HCPCS: 99397

== ENCOUNTER 2024-06-10 09:36 | Outpatient (REF) | payer MEDICARE, OTHER, SELFPAY ==
[2024-06-10 09:47] LABS: MANUAL DIFF FLAG NO
[2024-06-10 10:48] LABS: Basophils Absolute Auto 0.1 X10*3/uL (0.0-0.2); Basophils Percent Auto 0.9 % (0-2); Eosinophils Absolute Auto 0.1 X10*3/uL (0.0-0.4); Eosinophils Percent Auto 2.5 % (0-4); Hematocrit 41.1 % (37.0-47.0); Hemoglobin 13.1 g/dl (12.0-16.0); Imm Gran Abs Auto 0.01 X10*3/uL (0.00-0.03); Imm Gran Pct Auto 0.2 % (0.0-0.4); Lymphocytes Absolute Auto 1.8 X10*3/uL (1.2-4.9); Lymphocytes Percent Auto 31.8 % (20-40); Mean Corpuscular HGB Conc 31.9 g/dl (31.0-35.0); Mean Corpuscular Hemoglobin 27.5 pg (27.0-33.0); Mean Corpuscular Volume 86.3 fL (80.0-98.0); Mean Platelet Volume 11.3 fL (9.4-12.3); Monocytes Absolute Auto 0.4 X10*3/uL (0.1-1.2); Monocytes Percent Auto 7.4 % (2-11); Neutrophils Absolute Auto 3.2 x10*3/uL (2.0-8.3); Neutrophils Percent Auto 57.2 % (45-73); Platelet Count 198 X10*3/uL (160-400); Red Blood Count 4.76 X10*6/uL (4.20-5.50); Red Cell Distribution Width 14.6 % (11.0-16.0); White Blood Count 5.5 X10*3/uL (4.8-10.8)
[2024-06-10 10:54] LABS: Estimated Average Glucose 140 mg/dL; Hemoglobin A1c % 6.5 % (<6.0)
[2024-06-10 11:19] LABS: Alanine Aminotransferase 14 U/L (0-31); Albumin Level 4.2 g/dL (3.5-5.0); Alkaline Phosphatase 55 U/L (39-117); Anion Gap 11 (12-20); Aspartate Amino Transferase 17 U/L (5-31); Bilirubin Total 0.6 mg/dL (0.0-1.0); Blood Urea Nitrogen 11 mg/dL (9-16); Calcium 8.9 mg/dL (8.4-10.2); Carbon Dioxide 26 mmol/L (22-29); Chloride 107 mmol/L (96-108); Cholesterol 164 mg/dL (<200); Estimated Glomerular Filt Rate > 60; Glucose Fasting 116 mg/dL (60-99); HDL Cholesterol 54 mg/dL (>40); Iron 66 mcg/dL (30-160); LDL Cholesterol Calculated 95 mg/dL (<100); Percent Iron Saturation 19 % (15-50); Sodium 140 mmol/L (135-145); Total Iron Binding Capacity 356 mcg/dL (228-428); Total Protein 6.9 g/dL (6.5-8.0); Triglycerides 76 mg/dL (<150); Unsaturated Iron Binding 290 ug/dL
[2024-06-10 11:39] LABS: Vitamin D 25-OH Total 40.6 ng/mL (>30)
[2024-06-10 11:41] LABS: Folate 7.9 ng/mL (> or = 4.0); Vitamin B12 577 pg/mL (200-900)
== END 2024-06-10 09:37 | disposition home or self-care (01) ==
LOC: HO.LAB 09:36
PROVIDERS: PCP Internal Medicine; Visit Provider Internal Medicine
DX: Z00.00 Encounter for general adult medical examination without abnormal findings (principal); D64.9 Anemia, unspecified; E53.8 Deficiency of other specified B group vitamins; E55.9 Vitamin D deficiency, unspecified; E78.5 Hyperlipidemia, unspecified; E11.9 Type 2 diabetes mellitus without complications
CPT/HCPCS: 36415; 80053; 80061; 82306; 82607; 82746; 83036; 83540; 85025

== ENCOUNTER 2024-06-18 09:30 | Outpatient (AMB) | payer MEDICARE, OTHER, SELFPAY ==
[2024-06-18 09:31] VITALS: BP 110/66; PULSE 73; O2SAT 95; BMI 25.4
--- NOTE | 2024-06-18 09:31 | A.OFFPC_ITS ---
Vital Signs 06/18/24 09:31 Height 5 ft 10 in Weight 177 lb BMI 25.4 BP 110/66 Blood Pressure Location Lt brachial Position Sitting Pulse 73 Pulse Source Pulse Oximeter Pulse Oximetry (%) 95 Oxygen Delivery Method Room Air Intake Visit Reasons: 3 month follow up Intake Note: Pt is here today for 3 months follow up visit. Allergies No Known Allergies Allergy (Verified 06/18/24 09:33) Medication List - Last Reconciled 06/18/24 by Amie Salmeron MD calcium carbonate (Calcium 600) 600 mg PO .twice weekly dapagliflozin propanediol (Farxiga) 5 mg PO DAILY magnesium citrate 100 mg PO .twice a week mecobalamin (vitamin B12) 5,000 mcg PO .twice weekly sertraline 50 mg PO DAILY tirzepatide (Mounjaro) 10 mg (0.5 mL) subcut QWEEK Tobacco use date assessed: 06/18/24 Fall risk assessment: No Falls in past year Last assessed Fall Risk: 06/18/24 Dental Screening Dental Screen Date: 03/17/24 HPI 3 month follow up HPI Details Patient presents for the follow-up of type 2 diabetes and chronic anxiety stable on current medications [facility] Medical History PTSD (post-traumatic stress disorder) Knee injury Annual physical exam Normal Pap smear Osteopenia Dysplastic nevus of face History of mammogram Iron deficiency Vitamin B 12 deficiency Vitamin D deficiency Anemia DM type 2 (diabetes mellitus, type 2) Surgical History History of hemicolectomy History of colonoscopy H/O gastric bypass Family History Father Cancer Mother No problems noted. Brother Substance use disorder Brother No problems noted. Sister No problems noted. Son No problems noted. 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 1. Little interest or pleasure in doing things: not at all 2. Feeling down, depressed, or hopeless: not at all 3. Trouble falling or staying asleep, or sleeping too much: not at all 4. Feeling tired or having little energy: not at all 5. Poor appetite or overeating: not at all 6. Feeling bad about yourself - or that you are a failure or have let yourself or your family down: not at all 7. Trouble concentrating on things, such as reading the newspaper or watching television: not at all 8. Moving or speaking so slowly that other people could have noticed. Or the opposite - being so fidgety or restless that you have been moving around a lot more than usual: not at all 9. Thoughts that you would be better off or of hurting yourself in some way: not at all Total score: 0 Depression Screening Interpretation: Negative Depression Screening Done: Yes Source: Developed by Drs. Jose L Velazquez, Jewell Lassiter, Frank Batista and colleagues, with an educational hilary from [employer]. Thrive Questionnaire Date Thrive assessed: 06/18/24 I am a: Patient What is your living situation today?: I have a steady place to live Within the past 12 months, did the food you bought not last and you didn't have the money to get more?: Never true Within the past 12 months, did you worry whether your food would run out before you got money to buy more?: Never true Do you have trouble paying for medicines?: No Do you have trouble getting transportation to medical appointments?: No Do you have trouble paying your heating and electricity bill?: No Do you have trouble taking care of your child, family member or friend?: No Do you have trouble with day-to-day activities such as bathing, preparing meals, shopping, managing finances, etc.?: No Are you currently unemployed and looking for a job?: No Are you interested in more education?: No Please select the resources that you would like help with: Housing/Fdc Currently or been in a relationship where the following occur: No concerns reported THRIVE Score: 0 AUDIT C Alcohol Use Questionnaire (AUDIT-C) 1. How often do you have a drink containing alcohol?: Monthly or less 2. How many drinks containing alcohol do you have on a typical day when you are drinking?: 1 or 2 3. How often do you have six or more drinks on one occasion?: Less than monthly Total Score: 2 VIDYA-7 AMB Questionnaire VIDYA-7 Date VIDYA - 7 assessed: 06/18/24 Feeling nervous, anxious, or on edge: 0 = Not at all Not being able to stop or control worryin = Not at all Worrying too much about different things: 0 = Not at all Trouble relaxin = Several days Being so restless that it is hard to sit still: 0 = Not at all Becoming easily annoyed or irritable: 1 = Several days Feeling afraid as if something awful might happen: 0 = Not at all Total VIDYA-7 score (0-4 normal; 5-9 mild; 10-14 moderate; 15-21 severe): 2 Source: Developed by Drs. Jose L Velazquez, Jewell Lassiter, Frank Batista and colleagues, with an educational hilary from [employer]. Review of Systems Const All systems reviewed & are unremarkable except as noted in HPI and below Eyes Reports no additional complaints ENT Reports no additional complaints Card Reports no additional complaints Resp Reports no additional complaints GI Reports no additional complaints Reports no additional complaints Physical exam (Primary Care) Vital Signs: Last Vital Signs Pulse 73 06/18/24 09:31 BP 110/66 06/18/24 09:31 Pulse Ox 95 06/18/24 09:31 Oxygen Delivery Method Room Air 06/18/24 09:31 BMI result Body Mass Index 25.4 Tobacco/Smoking Status: Tobacco use Status Tobacco use date assessed 06/18/24 06/18/24 09:36 Patient Tobacco Use Status Former Tobacco user 06/18/24 09:36 e-Cigarette/Vaping Use Never Used 06/18/24 09:36 PHQ-9: PHQ-9 Score PHQ-9: Total score 0 06/18/24 11:49 Depression Screening Interpretation: Negative Thrive Assessment: Date of Thrive Assessment Date Thrive assessed 06/18/24 06/18/24 09:36 Currently or been in a relationship where the following occur: No concerns reported Const General: no acute distress HENMT Head: Yes normal to inspection Neck Neck: Yes supple Resp Effort & Inspection: normal respiratory effort Auscultation: clear to auscultation bilaterally Cardio Rhythm: regular rhythm Heart sounds: S1 normal heart sound present and S2 normal heart sound present Assessment and Plan Assessment & Plan (1) DM type 2 (diabetes mellitus, type 2): Code(s): E11.9 - Type 2 diabetes mellitus without complications Plan: A1c is 6.5. ADA diet regular physical activity discussed with the patient. Mounjaro will be increased to 12.5 mg and Farxiga continued. Follow-up in 3 months with a fasting labs before (2) Annual physical exam: Code(s): Z00.00 - Encounter for general adult medical examination without abnormal findings (3) Hyperlipidemia: Comment: Patient declined statin Code(s): E78.5 - Hyperlipidemia, unspecified Plan: Significantly improved since patient lost 40 lb. Continue low-cholesterol diet Orders: Orders Hemoglobin A1c 3 Months E11.9 - Type 2 diabetes mellitus without complications, E78.5 - Hyperlipidemia, unspecified, Z00.00 - Encounter for general adult medical examination without abnormal findings Complete Blood Count Auto Diff 3 Months E11.9 - Type 2 diabetes mellitus without complications, E78.5 - Hyperlipidemia, unspecified, Z00.00 - Encounter for general adult medical examination without abnormal findings Comprehensive [place]. Panel Fast 3 Months E11.9 - Type 2 diabetes mellitus without complications, E78.5 - Hyperlipidemia, unspecified, Z00.00 - Encounter for general adult medical examination without abnormal findings Lipid Panel 3 Months E78.5 - Hyperlipidemia, unspecified Medications: New tirzepatide (Mounjaro) 12.5 mg (0.5 mL) subcut QWEEK 6 mL 3RF Coding Level of Care Code Est Pt Level 4 (63424) Diagnoses DM type 2 (diabetes mellitus, type 2) E11.9 Annual physical exam Z00.00 Hyperlipidemia E78.5
== END 2024-06-18 10:26 | disposition home or self-care (01) ==
PROVIDERS: PCP Internal Medicine; Visit Provider Internal Medicine
DX: E11.9 Type 2 diabetes mellitus without complications (principal); Z00.00 Encounter for general adult medical examination without abnormal findings; E78.5 Hyperlipidemia, unspecified
CPT/HCPCS: 99214

== ENCOUNTER 2024-09-13 08:43 | Outpatient (REF) | payer MEDICARE, OTHER, SELFPAY ==
[2024-09-13 08:54] LABS: MANUAL DIFF FLAG NO
[2024-09-13 09:55] LABS: Basophils Percent Auto 0.6 % (0-2); Eosinophils Absolute Auto 0.1 X10*3/uL (0.0-0.4); Eosinophils Percent Auto 1.9 % (0-4); Hematocrit 40.3 % (37.0-47.0); Hemoglobin 12.9 g/dl (12.0-16.0); Imm Gran Abs Auto 0.03 X10*3/uL (0.00-0.03); Imm Gran Pct Auto 0.5 % (0.0-0.4); Lymphocytes Absolute Auto 1.5 X10*3/uL (1.2-4.9); Lymphocytes Percent Auto 23.1 % (20-40); Mean Corpuscular Hemoglobin 28.9 pg (27.0-33.0); Mean Corpuscular Volume 90.2 fL (80.0-98.0); Mean Platelet Volume 10.6 fL (9.4-12.3); Monocytes Absolute Auto 0.5 X10*3/uL (0.1-1.2); Monocytes Percent Auto 7.9 % (2-11); Neutrophils Absolute Auto 4.2 x10*3/uL (2.0-8.3); Platelet Count 196 X10*3/uL (160-400); Red Blood Count 4.47 X10*6/uL (4.20-5.50); White Blood Count 6.4 X10*3/uL (4.8-10.8)
[2024-09-13 10:14] LABS: Estimated Average Glucose 114 mg/dL; Hemoglobin A1C 122.9178 umol/L; Hemoglobin A1c % 5.6 % (<6.0); Total Hemoglobin (HGBA1C) 3244.8395 umol/L
[2024-09-13 10:44] LABS: Alanine Aminotransferase 25 U/L (0-31); Alkaline Phosphatase 64 U/L (39-117); Anion Gap 12 (12-20); Aspartate Amino Transferase 27 U/L (5-31); Bilirubin Total 0.5 mg/dL (0.0-1.0); Blood Urea Nitrogen 7 mg/dL (9-16); Calcium 8.8 mg/dL (8.4-10.2); Carbon Dioxide 25 mmol/L (22-29); Chloride 108 mmol/L (96-108); Cholesterol 151 mg/dL (<200); Estimated Glomerular Filt Rate > 60; Glucose Fasting 99 mg/dL (60-99); HDL Cholesterol 55 mg/dL (>40); LDL Cholesterol Calculated 81 mg/dL (<100); Potassium 3.6 mmol/L (3.3-5.1); Sodium 141 mmol/L (135-145); Total Protein 6.7 g/dL (6.5-8.0); Triglycerides 75 mg/dL (<150)
[2024-09-13 11:18] LABS: Creatinine Urine 53.06 mg/dL; Microalbum/Creatinine Ratio Ur 20.7 ug/mg cr (<30)
== END 2024-09-13 08:44 | disposition home or self-care (01) ==
LOC: HO.LAB 08:43
PROVIDERS: PCP Internal Medicine; Visit Provider Internal Medicine
DX: Z00.00 Encounter for general adult medical examination without abnormal findings (principal); E78.5 Hyperlipidemia, unspecified; E11.9 Type 2 diabetes mellitus without complications; E55.9 Vitamin D deficiency, unspecified; E53.8 Deficiency of other specified B group vitamins; D64.9 Anemia, unspecified
CPT/HCPCS: 36415; 80053; 80061; 82043; 82570; 83036; 85025

== ENCOUNTER 2024-10-01 09:24 | Outpatient (AMB) | payer MEDICARE, OTHER, SELFPAY ==
[2024-10-01 09:28] VITALS: BP 114/70; PULSE 64; O2SAT 97; BMI 24.5
--- NOTE | 2024-10-01 09:28 | A.OFFPC_ITS ---
Vital Signs 10/01/24 09:28 Height 5 ft 10 in Weight 171 lb BMI 24.5 BP 114/70 Blood Pressure Location Lt brachial Position Sitting Pulse 64 Pulse Source Pulse Oximeter Pulse Oximetry (%) 97 Oxygen Delivery Method Room Air Intake Visit Reasons: 3 month follow up Intake Note: Pt is here today for 3 months follow up visit. Allergies No Known Allergies Allergy (Verified 06/18/24 09:33) Medication List - Last Reconciled 10/01/24 by Amie Salmeron MD calcium carbonate (Calcium 600) 600 mg PO .twice weekly dapagliflozin propanediol (Farxiga) 5 mg PO DAILY magnesium citrate 100 mg PO .twice a week mecobalamin (vitamin B12) 5,000 mcg PO .twice weekly sertraline 50 mg PO DAILY tirzepatide (Mounjaro) 12.5 mg (0.5 mL) subcut QWEEK Tobacco use date assessed: 06/18/24 Dental Screening Dental Screen Date: 03/17/24 HPI 3 month follow up HPI Details Patient presents for the follow-up of type 2 diabetes chronic anxiety stable on current medications. [facility] Medical History PTSD (post-traumatic stress disorder) Knee injury Annual physical exam Normal Pap smear Osteopenia Dysplastic nevus of face History of mammogram Iron deficiency Vitamin B 12 deficiency Vitamin D deficiency Anemia DM type 2 (diabetes mellitus, type 2) Surgical History History of hemicolectomy History of colonoscopy H/O gastric bypass Family History Father Cancer Mother No problems noted. Brother Substance use disorder Brother No problems noted. Sister No problems noted. Son No problems noted. 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: No Hearing needs: No Vision needs: Yes Questionnaire Thrive Questionnaire Date Thrive assessed: 06/11/24 I am a: Patient What is your living situation today?: I have a steady place to live Within the past 12 months, did the food you bought not last and you didn't have the money to get more?: Never true Within the past 12 months, did you worry whether your food would run out before you got money to buy more?: Never true Do you have trouble paying for medicines?: No Do you have trouble getting transportation to medical appointments?: No Do you have trouble paying your heating and electricity bill?: No Do you have trouble taking care of your child, family member or friend?: No Do you have trouble with day-to-day activities such as bathing, preparing meals, shopping, managing finances, etc.?: No Are you currently unemployed and looking for a job?: No Are you interested in more education?: No Please select the resources that you would like help with: None Currently or been in a relationship where the following occur: No concerns reported THRIVE Score: 0 VIDYA-7 AMB Questionnaire VIDYA-7 Date VIDYA - 7 assessed: 06/18/24 Source: Developed by Drs. Jose L Velazquez, Jewell Lassiter, Frank Batista and colleagues, with an educational hilary from [email or web address]. Review of Systems Const All systems reviewed & are unremarkable except as noted in HPI and below Eyes Reports no additional complaints ENT Reports no additional complaints Card Reports no additional complaints Resp Reports no additional complaints GI Reports no additional complaints Reports no additional complaints Physical exam (Primary Care) Vital Signs: Last Vital Signs Pulse 64 10/01/24 09:28 BP 114/70 10/01/24 09:28 Pulse Ox 97 10/01/24 09:28 Oxygen Delivery Method Room Air 10/01/24 09:28 BMI result Body Mass Index 24.5 Tobacco/Smoking Status: Tobacco use Status Tobacco use date assessed 06/18/24 10/01/24 09:30 Patient Tobacco Use Status Former Tobacco user 10/01/24 09:30 e-Cigarette/Vaping Use Never Used 10/01/24 09:30 Thrive Assessment: Date of Thrive Assessment Date Thrive assessed 06/11/24 10/01/24 09:30 Currently or been in a relationship where the following occur: No concerns reported Const General: no acute distress HENMT Head: Yes normal to inspection Face and sinus: Yes normal facial exam Throat: Yes posterior oropharynx normal Neck Neck: Yes supple Resp Effort & Inspection: normal respiratory effort Auscultation: clear to auscultation bilaterally Cardio Rhythm: regular rhythm Heart sounds: S1 normal heart sound present and S2 normal heart sound present GI Inspection: Yes normal to inspection Palpation (GI): Soft to palpation Percussion: Yes normal to percussion Coding Level of Care Code Est Pt Level 4 (35036) Diagnoses DM type 2 (diabetes mellitus, type 2) E11.9 Hyperlipidemia E78.5 PTSD (post-traumatic stress disorder) F43.10 Assessment & Plan Assessment & Plan (1) DM type 2 (diabetes mellitus, type 2): Code(s): E11.9 - Type 2 diabetes mellitus without complications Category: Medical Plan: A1c is down to 5.6, continue ADA diet regular exercise and Mounjaro. Patient will stop Farxiga follow-up in 4 months with a fasting labs before (2) Hyperlipidemia: Comment: Patient declined statin Code(s): E78.5 - Hyperlipidemia, unspecified Category: Medical Plan: Continue low-cholesterol diet (3) PTSD (post-traumatic stress disorder): Code(s): F43.10 - Post-traumatic stress disorder, unspecified Category: Medical Plan: Continue sertraline Orders: Orders Hemoglobin A1c 4 Months E11.9 - Type 2 diabetes mellitus without complications, E78.5 - Hyperlipidemia, unspecified Comprehensive Clint. Panel Fast 4 Months E11.9 - Type 2 diabetes mellitus without complications, E78.5 - Hyperlipidemia, unspecified Lipid Panel 4 Months E11.9 - Type 2 diabetes mellitus without complications, E78.5 - Hyperlipidemia, unspecified Microalbumin, Random (w Creat) 4 Months E11.9 - Type 2 diabetes mellitus without complications, E78.5 - Hyperlipidemia, unspecified
== END 2024-10-01 10:10 | disposition home or self-care (01) ==
PROVIDERS: PCP Internal Medicine; Visit Provider Internal Medicine
DX: E11.9 Type 2 diabetes mellitus without complications (principal); E78.5 Hyperlipidemia, unspecified; F43.10 Post-traumatic stress disorder, unspecified

== ENCOUNTER → 2024-10-01 09:24 | Outpatient (BNVA) | payer MEDICARE, OTHER, SELFPAY | PROVIDERS: PCP Internal Medicine; Visit Provider Internal Medicine | DX: E11.9 Type 2 diabetes mellitus without complications (principal); E78.5 Hyperlipidemia, unspecified; F43.10 Post-traumatic stress disorder, unspecified | CPT/HCPCS: 99212 ==

== ENCOUNTER 2025-01-31 11:28 | Outpatient (REF) | payer MEDICARE, OTHER, SELFPAY ==
[2025-01-31 12:34] LABS: Estimated Average Glucose 120 mg/dL; Hemoglobin A1c % 5.8 % (<6.0)
[2025-01-31 12:58] LABS: Alanine Aminotransferase 18 U/L (0-31); Albumin Level 4.2 g/dL (3.5-5.0); Alkaline Phosphatase 56 U/L (39-117); Anion Gap 11 (12-20); Aspartate Amino Transferase 21 U/L (5-31); Bilirubin Total 0.6 mg/dL (0.0-1.0); Blood Urea Nitrogen 10 mg/dL (9-16); Calcium 8.7 mg/dL (8.4-10.2); Carbon Dioxide 26 mmol/L (22-29); Chloride 109 mmol/L (96-108); Cholesterol 168 mg/dL (<200); Estimated Glomerular Filt Rate > 60; Glucose Fasting 97 mg/dL (60-99); HDL Cholesterol 54 mg/dL (>40); LDL Cholesterol Calculated 96 mg/dL (<100); Potassium 3.6 mmol/L (3.3-5.1); Sodium 142 mmol/L (135-145); Triglycerides 93 mg/dL (<150)
== END 2025-01-31 11:29 | disposition home or self-care (01) ==
LOC: HO.LAB 11:28
PROVIDERS: PCP Internal Medicine; Visit Provider Internal Medicine
DX: E78.5 Hyperlipidemia, unspecified (principal); E11.9 Type 2 diabetes mellitus without complications
CPT/HCPCS: 36415; 80053; 80061; 83036

== ENCOUNTER 2025-02-02 16:43 | Outpatient (REF) | payer MEDICARE, OTHER, SELFPAY ==
[2025-02-02 17:16] LABS: Creatinine Urine 141.79 mg/dL; Microalbum/Creatinine Ratio Ur 7.7 ug/mg cr (<30)
== END 2025-02-02 16:44 | disposition home or self-care (01) ==
LOC: HO.LNP 16:43
PROVIDERS: Visit Provider Internal Medicine
DX: E78.5 Hyperlipidemia, unspecified (principal); E11.9 Type 2 diabetes mellitus without complications
CPT/HCPCS: 82043; 82570

== ENCOUNTER 2025-02-23 13:37 | Outpatient (REF) | payer MEDICARE, OTHER, SELFPAY ==
--- NOTE | ~2025-02-23 | MM_ITS ---
EXAMINATION: DXA BONE DENSITY AXIAL HISTORY: Z78.0 - Asymptomatic menopausal state TECHNIQUE: CardiOx Dual energy absorptiometry (DEXA) of the lumbar spine, total left hip, and femoral neck was performed. COMPARISON: Comparison is made with the prior examination dated 11/19/2022. FINDINGS: The bone mineral density of the lumbar spine is 1.109 with a T-score of -0.6, and a Z-score of 0.7. This is indicative of normal bone mineral density.- This represents a BMD change of 6.1% compared to the prior exam. This is statistically significant. The bone mineral density of the left total hip is 0.790 with a T-score of -1.7, and a Z-score of -0.7. This is indicative of osteopenia. This represents a BMD change of -9.9% compared to the prior exam. This is statistically significant. The bone mineral density of the left femoral neck is 0.794 with a T-score of -1.8, and a Z-score of -0.4. This is indicative of osteopenia.- This represents a BMD change of 4.3% compared to the prior exam. FRACTURE RISK: The FRAX index suggests a ten year probability of major osteoporotic fracture of 16.6%, and of hip fracture 2.4%. MM/XR DEXA axial skeleton IMPRESSION: Based on bone mineral density, and according to World Health Organization (WHO) criteria, the diagnosis is consistent with osteopenia. All bone density values are in grams per centimeter squared (g/cm2). Statistically, 68% of repeat scans fall within 1 SD (+/- 0.010 g/cm2 for AP spine L1-L4) and 1 SD (+/- 0.012 g/cm2 for femur total) FRAX is a trademark of the [employer] [place] for Metabolic Bone Disease, a World Health Organization (WHO) Collaborating Center. Electronically signed by: Jose L Lamb MD 02/23/2025 03:43 PM EDT
--- OUTSIDE RECORDS SUMMARY | 2025-02-23 16:17 | XMS_ITS | Continuity of Care Document ---
Author Organization [facility] Address [address] [address] Phone Care Team Providers Care Clinical Services Director Name Role Phone Joby LEON, Rodney Unavailable Unavaila ble Allergies, Adverse Reactions, Alerts Substance Reaction Status Criticality No Known Allergies Active No Inform ation Procedures Procedure Date Plastics Consultation Plastics Consultation Advance Directives Directive Yes / No Effective Date File Name No Information Encounters Encounter Description Practice Location Reason(s) For Visit Diagnoses Date Provider Providers Copied on Encounter [facility], [address], [place], [place], [address] [place] [address], tel:[phone] [facility] Encounter for cosmetic procedure Joby Stevens. [address], [address] [place] [address], . tel:[phone] Referring Provider: Rodney Hemphill MD P, [address] [place] [address], [id number]. tel:[phone] Family History Family Member Type Diagnosis Age At Onset No Information Payers Payer name Insurance type Covered republican ID Authoriza tion(s) No Information Social History [...]
--- OUTSIDE RECORDS SUMMARY | 2025-02-23 16:17 | XMS_ITS | Clinical Summary ---
Author Organization [facility] Address [address] [place] [address] Care Team Providers Care Scalloper Name Role Phone System, Provider Not In Primary Care Provider Un available Allergies No known active allergies Medications aspirin (VIVIAN ASPIRIN) 325 MG tablet Take 325 mg by mouth daily. Active naproxen (NAPROSYN) 500 MG tablet Take 1 tablet (500 mg total) by mouth 2 (two) times a day as needed for mild pain (pain). Take with food 14 tablet 02/11/2021 Active cyclobenzaprine (FLEXERIL) 10 MG tablet Take 1 tablet (10 mg total) by mouth 3 times daily (every 8 hours) as needed for muscle spasms. 9 tablet 02/11/2021 Active Immunizations Immunization Administration Dates Next Due Tdap 02/11/2021 Social History Tobacco Use Types Packs/Day Years Used Date Smoking Tobacco: Never Assessed Comments No Sex and Gender Information Value Date Recorded Sex Assigned at Not on file Legal Sex Female 4:25 PM EDT Gender Identity Not on file Sexual Orientation Not on file Last Filed Vital Signs Vital Sign Reading Time Taken Comments Blood Pressure 132/76 02/11/2021 6:14 PM EDT Pulse 70 02/11/2021 6:14 PM EDT Temperature 36.8 ??C (98.3 ??F) 02/11/2021 6:14 PM ED T Respiratory Rate 18 02/11/2021 6:14 PM EDT Oxygen Saturation 96% 02/11/2021 6:14 PM EDT Inhaled Oxygen Concentration - - Weight - - Height - - Body Mass Index - - Plan of Treatment Health Maintenance Due Date Last Done Comments Hepatitis C Virus Screening 1955 Mammogram 1997 Colonoscopy 2002 Pneumococcal Vaccines 50+ (1 of 1 - PCV) 2007 Zoster (Shingles) Vaccine (1 of 2) 2007 DXA Bone Density (Females,Ag es 65 and older) 2022 Influenza Vaccine 06/10/2024 COVID-19 Vaccine (1 - 2023-2 5 season) 2024 DTaP/Tdap/Td Vaccines (2 - T d or Tdap) 02/11/2031 02/11/2021 RSV Vaccine 60 years and old er and Patients (1 - 1-dose 75+ series) 2032 Hepatitis B Vaccines Aged Out No long er eligible based on patient's age to complete this topic Insurance [facility] [place] Care Teams Scalloper Relationship Specialty Start Date End Date System, Provider Not In PCP - General 02/11/21
--- OUTSIDE RECORDS SUMMARY | 2025-02-23 16:17 | XMS_ITS | Clinical Summary ---
Author Organization [facility] Address [address] [place] [address] Care Team Providers Care Budget Consultant Name Role Phone Estefania Munoz MD Primary Care Provider [phone] Surgical History Surgery Date Site/Laterality Comments GASTRIC BYPASS 2009 PROCEDURE: MD GASTRIC RSTCV W/BYP W/SM INT RCNSTJ LIMIT ABSRPJ CHOLECYSTECTOMY 1992 PROCEDURE: HISTORICAL CHOLECYSTECTOMY CATARACT EXTRACTION 2009 Left PROCEDURE: HISTORICAL CATARACT REMOVAL; COMMENT: Insert prosthetic lens ANKLE SURGERY 2012 Right PROCEDURE: HISTORICAL ANKLE SURGERY; COMMENT: ankle fx, ORIF w/ plates, screws BOWEL RESECTION 03/01/2019 Right PROCEDURE: HISTORICAL BOWEL RESECTION; COMMENT: Lennie Ennis. hemicolectomy; adenoma w/o carcinoma COLONOSCOPY PROCEDURE: HISTORICAL COLONOSCOPY; COMMENT: no report OTHER SURGICAL HISTORY PROCEDURE: HISTORY OTHER; COMMENT: re-excision scarring on liver Medical History Medical History Date Comments Anxiety 01/16/2017 DX:Anxiety History of bariatric surgery 01/16/2017 DX: History of bariatric surgery; COMMENT: 2009 Insomnia 01/16/2017 DX:Insomnia Personal history of colonic polyps DX:Personal history of colonic polyps; COMMENT: 02/2019 S/p right hemicolectomy Type 2 diabetes mellitus wit hout complication, without long-term current use of insulin (CMS/HCC V24, CMS/HCC V28) 04/23/2018 DX:Type 2 diabetes mellitus without complication, without long-term current use of insulin (HCC) IBS (irritable bowel syndrome) 01/16/2017 D X:IBS (irritable bowel syndrome) Family History Medical History Relation Name Comments Hypertension Father bone marrow can cer, 2007 Colon cancer Mother believes also h as IBS Breast cancer Paternal Grandmother Relation Name Status Comments Father Mother Paternal Grandmother Social History Tobacco Use Types Packs/Day Years Used Date Smoking Tobacco: Former Smokeless Tobacco: Never Alcohol Use Standard Drinks/Week Comments No 0 (1 standard drink = 0.6 oz pur e alcohol) Comments Unknown Sex and Gender Information Value Date Recorded Sex Assigned at Not on file Legal Sex Female 1:59 AM EST Gender Identity Not on file Sexual Orientation Not on file Obstetrics History Plan of Treatment Health Maintenance Due Date Last Done Comments Diabetes: Annual GFR (Glomerular Filtration Rate) 1955 Diabetes: Annual Foot Exam 1967 Diabetes: Annual Retina Eye Exam 1967 Zoster Vaccines (1 of 2) 2007 Pneumococcal Vaccine: 50+ Years (2 of 2 - PCV) 04/07/2010 04/07/2009 Cholesterol Screening (Lipid Panel) 10/13/2022 Colorectal Cancer Screening: Colonoscopy 10/13/2022 Depression Screening 10/13/2022 Falls Risk Assessment 10/13/2022 Hepatitis C Screening 10/13/2022 Osteoporosis Screening (Bone Density Screening) 10/13/2022 Social Influencers of Health Screening 10/13/2022 Diabetes: Annual Urine Albumin-Creatinine Ratio (uACR) 10/24/2022 Diabetes: Blood Sugar Contro l Test (HGBA1C) 10/24/2022 Breast Cancer Screening 02/16/2023 02/17/20, 11/02/2019, 10/28/2018 COVID-19 Vaccine (2023-2 5 season) 2024 Influenza Vaccine (Season Ended) 2025 10/15/2017, 08/05/2016 DTaP,Tdap,and Td Vaccines (3 - Td or Tdap) 05/19/2029 05/19/2019, 04/07/2009 RSV Immunization Adult Patients (1 - 1-dose 75+ series) 2032 HIB Vaccines Aged Out No longer eligi ble based on patient's age to complete this topic HPV Vaccines Aged Out No longer eligi ble based on patient's age to complete this topic Hepatitis A Vaccines Aged Out No long er eligible based on patient's age to complete this topic Hepatitis B Vaccines Aged Out No long er eligible based on patient's age to complete this topic IPV Vaccines Aged Out No longer eligi ble based on patient's age to complete this topic MMR Vaccines Aged Out No longer eligi ble based on patient's age to complete this topic Meningococcal ACWY Vaccine Aged Out N o longer eligible based on patient's age to complete this topic Meningococcal B Vaccine Aged Out No l onger eligible based on patient's age to complete this topic RSV Immunization Patients Under 20 months Aged Out No longer eligible b ased on patient's age to complete this topic Varicella Vaccines Aged Out No longer eligible based on patient's age to complete this topic Procedures Procedure Name Priority Date/Time Associated Diagnosis Comments [facility] SCREENING DIGITAL Routine 02/16/2021 2:14 PM EDT Encounter for screening mammogram for malignant neoplasm of breast from Last 3 Months or Most Recently Relevant to Health Maintenance Results * [facility] SCREENING DIGITAL (02/16/2021 2:14 PM EDT) Anatomical Region Laterality Modality Mammography 02/16/2021 9:47 AM EDT Narrative 02/16/2021 2:[address] [facility] Diagnostic Imaging Department [address] [place] [address] Patient: ??YANIRA LEHMAN ?/Age/Sex: 1955 - 65 - F Unit#: ??[id number] ? Location/Status: ??SPDIMAM/REG CLI ? Mnemonic/Ordering Site: ??DIGSC/SPMAM Ordering Physician: ??AMIE SALMERON MD [facility] Screening Digital - 02/16/21 - 1009 EXAM: [facility] Screening Digital EXAM DATE AND TIME: 02/16/2021 10:10 AM HISTORY: ??Family history of breast carcinoma in a nonspecified relative. Annual screening mammography COMPARISON: ??11/01/2019 through 08/15/2016 TECHNIQUE: CC and MLO views of both breasts were obtained using full field digital mammography. Bilateral digital breast tomosynthesis was performed in the MLO projection. Computer aided detection with the [employer].2-TalkShoe was employed. TISSUE DENSITY: b. There are scattered areas of fibroglandular density. FINDINGS: No suspicious masses, grouped microcalcifications, or areas of architectural distortion are seen. ??Benign left breast calcifications are present. ??The skin and vascularity are unremarkable. IMPRESSION: Stable mammographic appearance of the breasts. ??No evidence of malignancy is seen. A negative mammogram in the presence of a clinically suspicious palpable abnormality does not preclude the possibility of malignancy or alter the indications for biopsy. BI-RADS: ??Category 1: Negative RECOMMENDATION(S): 1: Routine screening mammogram BILATERAL in 1 year. 73079, 03697 3342F, 7025F Dictating Physician: ??AMIE BARTON MD Electronically Signed by: ??AMIE BARTON MD Dic Date/Time: ??02/16/21 1411 Sign date/Time: ??02/16/21 1414 Procedure Note Claudine Barton MD - 10/29/2022 [facility] Diagnostic Imaging Department [address] [place] [address] Patient: YANIRA LEHMAN Mercedes HarrellB./Age/Sex: 1955 - 65 - F Unit#: [id number] Location/Status: [facility] CLI Mnemonic/Ordering Site: [facility] Ordering Physician: AMIE SALMERON MD [facility] Screening Digital - 02/16/21 - 1009 EXAM: [facility] Screening Digital EXAM DATE AND TIME: 02/16/2021 10:10 AM HISTORY: Family history of breast carcinoma in a nonspecified relative. Annual screening mammography COMPARISON: 11/01/2019 through 08/15/2016 TECHNIQUE: CC and MLO views of both breasts were obtained using fullfield digital mammography. Bilateral digital breast tomosynthesis was performedin the MLO projection. Computer aided detection with the [employer] 7.2-SecureAuthas employed. TISSUE DENSITY: b. There are scattered areas of fibroglandular density. FINDINGS: No suspicious masses, grouped microcalcifications, or areas ofarchitectural distortion are seen. Benign left breast calcifications are present. Theskin and vascularity are unremarkable. IMPRESSION: Stable mammographic appearance of the breasts. No evidence of malignancyis seen. A negative mammogram in the presence of a clinically suspicious palpable abnormality does not preclude the possibility of malignancy or alter the indications for biopsy. BI-RADS: Category 1: Negative RECOMMENDATION(S): 1: Routine screening mammogram BILATERAL in 1 year. 53267, 10333 3342F, 7025F Dictating Physician: AMIE BARTON MD Electronically Signed by: AMIE BARTON MD Dic Date/Time: 02/16/21 1411 Sign date/Time: 02/16/21 1414 us Amie Salmeron MD IMG BI PROCEDURES Final Result from Last 3 Months or Most Recently Relevant to Health Maintenance Care Teams Budget Consultant Relationship Specialty Start Date End Date Estefania Munoz MD PCP - General Internal Medicine 02/02/18
== END 2025-02-23 13:38 | disposition home or self-care (01) ==
LOC: HO.MAMMO 13:37
PROVIDERS: PCP Internal Medicine; Visit Provider Internal Medicine
DX: Z12.31 Encounter for screening mammogram for malignant neoplasm of breast (principal); Z13.820 Encounter for screening for osteoporosis; Z78.0 Asymptomatic menopausal state
CPT/HCPCS: 77063; 77067; 77080

== ENCOUNTER → 2025-02-23 14:30 | Outpatient (BNV) | payer MEDICARE, OTHER, SELFPAY | PROVIDERS: PCP Internal Medicine; Visit Provider Radiology Diagnostic Radiology | DX: E28.39 Other primary ovarian failure (principal) | CPT/HCPCS: 77080 ==

== ENCOUNTER 2025-03-28 13:04 | Outpatient (AMB) | payer MEDICARE, OTHER, SELFPAY ==
--- OUTSIDE RECORDS SUMMARY | 2025-03-28 13:10 | XMS_ITS | Clinical Summary ---
Author Organization [facility] Address [address] [place] [address] Care Team Providers Care Automatic Shirring Machine Operator Name Role Phone System, Provider Not In [...] Density (Females,Ag es 65 and older) 2022 COVID-19 Vaccine (1 - 2023-2 5 season) 2024 Influenza Vaccine 06/10/2025 DTaP/Tdap/Td Vaccines (2 - T d or Tdap) 02/11/2031 02/11/2021 RSV Vaccine 60 years and old er and Patients (1 - 1-dose 75+ series) 2032 Hepatitis B Vaccines Aged Out No long er eligible based on patient's age to complete this topic Insurance [facility] [place] Care Teams Automatic Shirring Machine Operator Relationship Specialty Start Date End Date System, Provider Not In PCP - General 02/11/21
--- OUTSIDE RECORDS SUMMARY | 2025-03-28 13:10 | XMS_ITS | Clinical Summary ---
Author Organization [facility] Address [address] [place] [address] Care Team Providers Care Linux Kernel Engineer Name Role Phone Estefania Munoz MD Primary Care Provider [phone] Surgical History Surgery Date Site/Laterality Comments GASTRIC BYPASS 2009 PROCEDURE: [place] GASTRIC RSTCV W/BYP W/SM INT RCNSTJ LIMIT [...] Health Maintenance Due Date Last Done Comments Zoster Vaccines (1 of 2) 2007 Pneumococcal Vaccine: 50+ Years (2 of 2 - PCV) 04/07/2010 04/07/2009 Breast Cancer Screening 02/16/2023 02/17/20, 11/02/2019, 10/28/2018 [...] Procedure Name Priority Date/Time Associated Diagnosis Comments [facility] SCREENING DIGITAL Routine 02/16/2021 2:14 PM EDT Encounter for screening mammogram for malignant neoplasm of breast from Last 3 Months or Most Recently Relevant to Health Maintenance Results * [facility] SCREENING DIGITAL (02/16/2021 2:14 PM EDT) Anatomical Region Laterality Modality Mammography 02/16/2021 9:47 AM EDT Narrative 02/16/2021 2:14 PM EDT [facility] Diagnostic Imaging Department [address] [place] [address] Patient: ??YANIRA LEHMAN ?/Age/Sex: 1955 - 65 - F Unit#: ??[id number] ? Location/Status: ??SPDIMAM/REG CLI ? Mnemonic/Ordering Site: ??DIGSC/SPMAM Ordering Physician: ??AMIE SALMERON MD [facility] Screening Digital - 02/16/21 - 1009 EXAM: [facility] Screening Digital EXAM DATE AND TIME: 02/16/2021 10:10 AM HISTORY: ??Family history of breast carcinoma in a nonspecified relative. Annual screening mammography COMPARISON: ??11/01/2019 through 08/15/2016 TECHNIQUE: CC and MLO views of both breasts were obtained using full field digital mammography. Bilateral digital breast tomosynthesis was performed in the MLO projection. Computer aided detection with the [employer] 7.2-H was employed. TISSUE DENSITY: b. There are [...] Routine screening mammogram BILATERAL in 1 year. 23067, 49588 3342F, 7025F Dictating Physician: ??AMIE BARTON MD Electronically Signed by: ??AMIE BARTON MD Dic Date/Time: ??02/16/21 1411 Sign date/Time: ??02/16/21 1414 Procedure Note Claudine Barton MD - 10/29/2022 [facility] Diagnostic Imaging Department [address] [place] [address] Patient: YANIRA LEHMAN Mercedes /Age/Sex: 1955 - 65 - F Unit#: [id number] [facility]Ordering Site: [facility] Ordering Physician: AMIE SALMERON MD [facility] Screening Digital - 02/16/21 - 1009 EXAM: [facility] Screening Digital EXAM DATE AND TIME: 02/16/2021 10:10 AM HISTORY: Family history of breast carcinoma in a nonspecified relative. Annual screening mammography COMPARISON: 11/01/2019 through 08/15/2016 TECHNIQUE: CC and MLO views of both breasts were obtained using fullfield digital mammography. Bilateral digital breast tomosynthesis was performedin the MLO projection. Computer aided detection with the [employer].2-PubMaticas employed. TISSUE DENSITY: b. There are scattered [...] Routine screening mammogram BILATERAL in 1 year. 38948, 76005 3342F, 7025F Dictating Physician: AMIE BARTON MD Electronically Signed by: AMIE BARTON MD Dic Date/Time: 02/16/21 1411 Sign date/Time: 02/16/21 1414 us Amie Salmeron MD IMG BI PROCEDURES Final Result from Last 3 Months or Most Recently Relevant to Health Maintenance Care Teams Linux Kernel Engineer Relationship Specialty Start Date End Date Estefania Munoz MD PCP - General Internal Medicine 02/02/18
--- OUTSIDE RECORDS SUMMARY | 2025-03-28 13:10 | XMS_ITS | Continuity of Care Document ---
Author Organization [facility] Address [address] [address] Phone Care Team Providers Care Alley Worker Name Role Phone Joby LEON, Rodney Unavailable Unavaila ble Allergies, Adverse Reactions, Alerts Substance Reaction Status Criticality No Known Allergies Active No Inform ation Procedures Procedure Date Plastics Consultation Plastics Consultation Advance Directives Directive Yes / No Effective Date File Name No Information Encounters Encounter Description Practice Location Reason(s) For Visit Diagnoses Date Provider Providers Copied on Encounter [facility], [address], [place], [place], [address] [place] [address], tel:[phone] [facility] Encounter for cosmetic procedure Joby Stevens. [address], [address] [place] [address], . tel:[phone] Referring Provider: Rodney Hemphill MD P, [id number] [place] [address], [id number]. tel:[phone] Family History Family Member Type Diagnosis Age At Onset No Information Payers Payer name Insurance type Covered democrat ID Authoriza tion(s) No Information Social History [...]
--- NOTE | 2025-03-28 13:44 | MHC.PC.OV ---
Vital Signs 03/28/25 13:45 Height 5 ft 10 in Weight 171 lb BMI 24.5 BP 120/74 Blood Pressure Location Lt brachial Position Sitting Respiration 20 Pulse 72 Pulse Source Pulse Oximeter Temp 97.9 F Temp Source Oral Pulse Oximetry (%) 97 Oxygen Delivery Method Room Air Intake Visit Reasons: Annual PE Intake Note: Pt is here today for PE. Allergies No Known Allergies Allergy (Verified 03/28/25 13:46) Medication List - Last Reconciled 03/28/25 by Amie Salmeron MD calcium carbonate (Calcium 600) 600 mg PO .twice weekly dapagliflozin propanediol (Farxiga) 5 mg PO DAILY magnesium citrate 100 mg PO .twice a week mecobalamin (vitamin B12) 5,000 mcg PO .twice weekly sertraline 50 mg PO DAILY tirzepatide (Mounjaro) 12.5 mg (0.5 mL) subcut QWEEK Tobacco use date assessed: 06/18/24 Fall risk assessment: No Falls in past year Last assessed Fall Risk: 03/28/25 Dental Screening Dental Screen Date: 03/28/25 Did you have a dental visit in the last 12 months?: Yes Did you have a dental problem in the last 6 months where you did not have access to dental care?: No Was dental information given to patient?: Patient has dentist HPI Annual PE HPI Details Patient presents for physical. She noticed intermittent vaginal spotting for the last few weeks. Patient denies abdominal or pelvic pain. Her last normal Pap smear was 5 years ago at [facility]. [facility] Medical History PTSD (post-traumatic stress disorder) Knee injury Annual physical exam Normal Pap smear Osteopenia Dysplastic nevus of face History of mammogram Iron deficiency Vitamin B 12 deficiency Vitamin D deficiency Anemia DM type 2 (diabetes mellitus, type 2) Surgical History History of hemicolectomy History of colonoscopy H/O gastric bypass Family History Father Cancer Mother No problems noted. Brother Substance use disorder Brother No problems noted. Sister No problems noted. Son No problems noted. 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: No Hearing needs: No Vision needs: Yes Questionnaire Thrive Questionnaire Date Thrive assessed: 01/31/25 I am a: Patient What is your living situation today?: I have a steady place to live Within the past 12 months, did the food you bought not last and you didn't have the money to get more?: Never true Within the past 12 months, did you worry whether your food would run out before you got money to buy more?: Never true Do you have trouble paying for medicines?: I choose not to answer this question Do you have trouble getting transportation to medical appointments?: I choose not to answer this question Do you have trouble paying your heating and electricity bill?: I choose not to answer this question Do you have trouble taking care of your child, family member or friend?: No Do you have trouble with day-to-day activities such as bathing, preparing meals, shopping, managing finances, etc.?: I choose not to answer this question Are you currently unemployed and looking for a job?: I choose not to answer this question Are you interested in more education?: I choose not to answer this question Please select the resources that you would like help with: None Currently or been in a relationship where the following occur: I choose not to answer THRIVE Score: 0 AUDIT C Alcohol Use Questionnaire (AUDIT-C) 1. How often do you have a drink containing alcohol?: Never 3. How often do you have six or more drinks on one occasion?: Never Total Score: 0 VIDYA-7 AMB Questionnaire VIDYA-7 Date VIDYA - 7 assessed: 06/18/24 Source: Developed by Drs. Jose L Velazquez, Jewell Lassiter, Frank Batista and colleagues, with an educational hilary from [employer]. Review of Systems Const All systems reviewed & are unremarkable except as noted in HPI and below Eyes Reports no additional complaints ENT Reports no additional complaints Card Reports no additional complaints Resp Reports no additional complaints GI Reports no additional complaints Reports no additional complaints Physical exam (Primary Care) Vital Signs: Last Vital Signs Temp 97.9 F 03/28/25 13:45 Pulse 72 03/28/25 13:45 Resp 20 03/28/25 13:45 BP 120/74 03/28/25 13:45 Pulse Ox 97 03/28/25 13:45 Oxygen Delivery Method Room Air 03/28/25 13:45 BMI result Body Mass Index 24.5 Tobacco/Smoking Status: Tobacco use Status Tobacco use date assessed 06/18/24 03/28/25 13:47 Patient Tobacco Use Status Former Tobacco user 03/28/25 13:47 e-Cigarette/Vaping Use Never Used 03/28/25 13:47 Thrive Assessment: Date of Thrive Assessment Date Thrive assessed 01/31/25 03/28/25 13:47 Currently or been in a relationship where the following occur: I choose not to answer Const General: no acute distress HENMT Head: Yes normal to inspection Ears: hearing grossly normal bilaterally Face and sinus: Yes normal facial exam Mouth: Normal oral and palatal mucosa present Throat: Yes posterior oropharynx normal Eyes General: appearance normal, both eyes and all related structures Neck Neck: Yes no lymphadenopathy and Yes supple Resp Effort & Inspection: normal respiratory effort Auscultation: clear to auscultation bilaterally Cardio Rhythm: regular rhythm Heart sounds: S1 normal heart sound present and S2 normal heart sound present GI Inspection: Yes normal to inspection Palpation (GI): Soft to palpation Percussion: Yes normal to percussion Auscultation: normal bowel sounds Extrem Other: DM foot exam skin is intact monofilament and vibration sensation intact bilaterally General: Yes no clubbing, cyanosis or edema Immunizations pneumoc 20-connie conj-dip cr(PF) 0.5 mL IM syringe Performing Provider: Amie Salmeron MD Performing Location: [facility] Administered by: Rozina Smith CMA on 03/28/25 14:19 Dose Route Admin Location Dispensed Lot Number Expiration Date [facility] Transportation Technician 0.5 mL IM Left Deltoid 0.5 mL [id number] 02/07/26 3671-1240-58 [employer] VIS Given Date VIS Provided VIS Publication Date 03/28/25 Single Vaccine 21 Eligibility Eligibility Date Funding Source Not [facility] Eligible 03/28/25 Private Coding Level of Care Code Est Pt Prev Care >65y(01680) Diagnoses DM type 2 (diabetes mellitus, type 2) E11.9 Anemia D64.9 Hyperlipidemia E78.5 Annual physical exam Z00.00 Assessment & Plan Assessment & Plan (1) DM type 2 (diabetes mellitus, type 2): Code(s): E11.9 - Type 2 diabetes mellitus without complications Category: Medical Plan: A1c is 5.8, continue Mounjaro ADA diet regular physical activity follow-up in 6 months with a fasting labs before (2) Anemia: Comment: s/p gastric bypass, hemicolectomy Code(s): D64.9 - Anemia, unspecified Category: Medical Plan: Monitor CBC vitamin B12 level and iron count (3) Hyperlipidemia: Comment: Patient declined statin Code(s): E78.5 - Hyperlipidemia, unspecified Category: Medical Plan: Continue low-cholesterol diet (4) Annual physical exam: Code(s): Z00.00 - Encounter for general adult medical examination without abnormal findings Category: Medical Plan: Well-balanced diet regular physical activity discussed with the patient she is up-to-date with the mammogram colonoscopy will be referred to construction administrative assistant for postmenopausal spotting and pelvic ultrasound will be obtained Orders: Orders Hemoglobin A1c 6 Months D64.9 - Anemia, unspecified, E11.9 - Type 2 diabetes mellitus without complications, E78.5 - Hyperlipidemia, unspecified Lipid Panel 6 Months D64.9 - Anemia, unspecified, E11.9 - Type 2 diabetes mellitus without complications, E78.5 - Hyperlipidemia, unspecified US pelvic and transvaginal Today N95.0 - Postmenopausal bleeding Microalbumin, Random (w Creat) 6 Months D64.9 - Anemia, unspecified, E53.8 - Deficiency of other specified B group vitamins, E55.9 - Vitamin D deficiency, unspecified Pneumococcal 20 Immunization Today Z23 - Encounter for immunization Comprehensive Flushing. Panel Fast 6 Months D64.9 - Anemia, unspecified, E11.9 - Type 2 diabetes mellitus without complications, E78.5 - Hyperlipidemia, unspecified UA w Microscopic Today Z00.00 - Encounter for general adult medical examination without abnormal findings Complete Blood Count Auto Diff 6 Months D64.9 - Anemia, unspecified, E53.8 - Deficiency of other specified B group vitamins, E55.9 - Vitamin D deficiency, unspecified IRON PROFILE 6 Months D64.9 - Anemia, unspecified, E53.8 - Deficiency of other specified B group vitamins, E55.9 - Vitamin D deficiency, unspecified Vitamin D 25-OH Total 6 Months D64.9 - Anemia, unspecified, E53.8 - Deficiency of other specified B group vitamins, E55.9 - Vitamin D deficiency, unspecified Referrals PHARMACEUTICAL PHYSICIAN Referral N95.0 - Postmenopausal bleeding Medications: Refilled tirzepatide (Mounjaro) 12.5 mg (0.5 mL) subcut QWEEK 6 mL 3RF
[2025-03-28 13:45] VITALS: BP 120/74; PULSE 72; RESP 20; TEMP 36.6; O2SAT 97; BMI 24.5
== END 2025-03-28 14:23 | disposition home or self-care (01) ==
LOC: HO.HMCC 13:05
PROVIDERS: PCP Internal Medicine; Visit Provider Internal Medicine
DX: Z00.00 Encounter for general adult medical examination without abnormal findings (principal); E11.69 Type 2 diabetes mellitus with other specified complication; D64.9 Anemia, unspecified; E78.5 Hyperlipidemia, unspecified; Z23 Encounter for immunization

== ENCOUNTER → 2025-03-28 13:04 | Outpatient (BNVA) | payer MEDICARE, OTHER, SELFPAY | PROVIDERS: PCP Internal Medicine; Visit Provider Internal Medicine | DX: Z00.00 Encounter for general adult medical examination without abnormal findings (principal); Z23 Encounter for immunization; D64.9 Anemia, unspecified; E11.9 Type 2 diabetes mellitus without complications; E78.5 Hyperlipidemia, unspecified; Z87.891 Personal history of nicotine dependence | CPT/HCPCS: 90471; 90677; 99397 ==

== ENCOUNTER 2025-04-05 07:53 | Outpatient (REF) | payer MEDICARE, OTHER, SELFPAY ==
[2025-04-05 15:50] LABS: Bacterial Vaginosis PCR POSITIVE (Negative); Candida Group PCR NOT DETECTED (Not Detect); Candida glab krusei PCR NOT DETECTED (Not Detect); Trichomonas vaginalis PCR NOT DETECTED (Not Detect)
[2025-04-05 16:22] LABS: CT PCR NOT DETECTED (Not Detect.); NG PCR NOT DETECTED (Not Detect.)
== END 2025-04-05 07:54 | disposition home or self-care (01) ==
LOC: HO.LAB 07:53
PROVIDERS: PCP Internal Medicine; Visit Provider Advanced Practice Midwife
DX: N95.0 Postmenopausal bleeding (principal); Z20.2 Contact with and (suspected) exposure to infections with a predominantly sexual mode of transmission
CPT/HCPCS: 81515; 87491; 87591; 99202

== ENCOUNTER 2025-04-05 07:53 | Outpatient (AMB) | payer MEDICARE, OTHER, SELFPAY ==
--- OUTSIDE RECORDS SUMMARY | 2025-04-05 07:55 | XMS_ITS | Clinical Summary ---
Author Organization [facility] Address [address] [place] [address] Care Team Providers Care Floral Merchandiser Name Role Phone Estefania Munoz MD Primary Care Provider [phone] Surgical History Surgery Date Site/Laterality Comments GASTRIC BYPASS 2009 PROCEDURE: [place] GASTRIC RSTCV W/BYP W/SM INT RCNSTJ LIMIT [...] Recently Relevant to Health Maintenance Results * [facility] SCREENING DIGITAL (02/16/2021 2:14 PM EDT) Anatomical Region Laterality Modality Mammography 02/16/2021 9:47 AM EDT Narrative 02/16/2021 2:14 PM EDT [facility] Diagnostic Imaging Department [address] [place] [address] Patient: ??YANIRA LEHMAN ?/Age/Sex: 1955 - 65 - F Unit#: ??[id number] ? Location/Status: ??SPDIMAM/REG CLI ? Mnemonic/Ordering Site: ??DIGSC/SPMAM Ordering Physician: ??AMIE SALMERON MD [facility] Screening Digital - 02/16/21 - 1009 EXAM: [facility] Screening Digital EXAM DATE AND TIME: 02/16/2021 10:10 AM HISTORY: ??Family history of breast carcinoma in a nonspecified relative. Annual screening mammography COMPARISON: ??11/01/2019 through 08/15/2016 TECHNIQUE: CC and MLO views of both breasts were obtained using full field digital mammography. Bilateral digital breast tomosynthesis was performed in the MLO projection. Computer aided detection with the [employer] 7.2-H was employed. TISSUE DENSITY: b. There [...] Routine screening mammogram BILATERAL in 1 year. [address]017, [address]30 3342F, 7025F Dictating Physician: ??AMIE BARTON MD Electronically Signed by: ??AMIE BARTON MD Dic Date/Time: ??02/16/21 1411 Sign date/Time: ??02/16/21 1414 Procedure Note Claudine Barton MD - 10/29/2022 [facility] Diagnostic Imaging Department [address] [place] [address] Patient: YANIRA LEHMAN Mecredes /Age/Sex: 1955 - 65 - F Unit#: [id number] [facility]Ordering Site: [facility] Ordering Physician: AMIE SALMERON MD [facility] Screening Digital - 02/16/21 - 1009 EXAM: [facility] Screening Digital EXAM DATE AND TIME: 02/16/2021 10:10 AM HISTORY: Family history of breast carcinoma in a nonspecified relative. Annual screening mammography COMPARISON: 11/01/2019 through 08/15/2016 TECHNIQUE: CC and MLO views of both breasts were obtained using fullfield digital mammography. Bilateral digital breast tomosynthesis was performedin the MLO projection. Computer aided detection with the [employer] employed. TISSUE DENSITY: b. There are scattered [...] Routine screening mammogram BILATERAL in 1 year. [address]6915, 47545 3342F, 7025F Dictating Physician: AMIE BARTON MD Electronically Signed by: AMIE BARTON MD Dic Date/Time: 02/16/21 1411 Sign date/Time: 02/16/21 1414 us Amie Salmeron MD IMG BI PROCEDURES Final Result from Last 3 Months or Most Recently Relevant to Health Maintenance Care Teams Floral Merchandiser Relationship Specialty Start Date End Date Estefania Munoz MD PCP - General Internal Medicine 02/02/18
--- NOTE | 2025-04-05 07:59 | A.OFFVIS_ITS ---
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 She denies any pelvic pain, vaginal itching or irritation. Not sexually active >2yrs. History of colonectomy due to polyp. [facility] Medical History PTSD (post-traumatic stress disorder) Knee injury Annual physical exam Normal Pap smear Osteopenia Dysplastic nevus of face History of mammogram Iron deficiency Vitamin B 12 deficiency Vitamin D deficiency Anemia DM type 2 (diabetes mellitus, type 2) Surgical History History of hemicolectomy History of colonoscopy H/O gastric bypass Family History Father Cancer Mother No problems noted. Brother Substance use disorder Brother No problems noted. Sister No problems noted. Son No problems noted. 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: No Hearing needs: No Vision needs: Yes Female Reproductive History Menstrual Menopause type: natural Age of menopause: 57 Total pregnancies: 1 Full term: 1 Number of Living Children: 1 Review of Systems Const All systems reviewed & are unremarkable except as noted in HPI and below Physical Exam Vital Signs: Last Vital Signs BP 108/70 04/05/25 08:00 BMI result Body Mass Index 24.5 Const General: cooperative, healthy appearing and no acute distress Orientation/consciousness: patient oriented x3 GI Inspection: Yes normal to inspection Palpation (GI): Soft to palpation and Other GI palpation findings present (Nontender) Rectal Exam - Female: visual inspection normal General: Yes bladder normal to palpation External Female Exam: normal appearance of the urethra Speculum Exam - Vagina: normal appearance of the vagina, normal palpation, normal vaginal discharge and vagina atrophic (Moderate to severe, friable with speculum exam) Speculum Exam - Cervix: normal appearance of the cervix and normal palpation Bimanual exam- vagina & uterus: normal bimanual exam, normal palpation, uterine size normal, bladder normal to palpation, normal palpation, uterine shape normal and non-tender Bimanual Exam- Adnexa, other: normal adnexae Neuro General: patient oriented x3 Assessment & Plan Assessment & Plan (1) Postmenopausal bleeding: Code(s): N95.0 - Postmenopausal bleeding Category: Medical Plan Ultrasound has been scheduled and is for April 22. Counseled regarding workup to include endometrial biopsy, await ultrasound results for review to determine if hysteroscopy would be required. Option of biopsy today reviewed with waiting until further information is evaluated to determine the necessity for hysteroscopy, and additional procedure. Patient be scheduled for ultrasound follow up in EMB same-day visit. Advised to take an [id number]-blypils pain medications such as Tylenol or ibuprofen with food and fluids 1 hour before her procedure appointment. GC chlamydia obtained. The patient expressed understanding and agreement with the plan of care. All of her questions and concerns were addressed to the best of my ability. This note is constructed using voice recognition software. While every effort has been made to ensure accuracy, shipping and receiving supervisor errors may have been included. Insert Orders: Orders Bacterial Vaginosis Panel Today N95.0 - Postmenopausal bleeding CT NG by PCR Today N95.0 - Postmenopausal bleeding Coding Level of Care Code New Pt Level 3 (33934) Diagnoses Postmenopausal bleeding N95.0
[2025-04-05 08:00] VITALS: BP 108/70; BMI 24.5
== END 2025-04-05 08:29 | disposition home or self-care (01) ==
LOC: HO.HWS 07:53
PROVIDERS: PCP Internal Medicine; Visit Provider Advanced Practice Midwife
DX: N95.0 Postmenopausal bleeding (principal)
CPT/HCPCS: 99203

== ENCOUNTER 2025-04-05 08:24 | Outpatient (REF) | payer MEDICARE, OTHER, SELFPAY | END 2025-04-05 08:25 | disposition home or self-care (01) | LOC: HO.LNP 08:24 | PROVIDERS: Visit Provider Advanced Practice Midwife | DX: Z13.89 Encounter for screening for other disorder (principal) ==

== ENCOUNTER 2025-05-20 13:53 | Outpatient (REF) | payer MEDICARE, OTHER, SELFPAY ==
--- NOTE | ~2025-05-20 | US_ITS ---
EXAMINATION: US PELVIS CLINICAL INFORMATION: Postmenopausal bleeding. COMPARISON: None available. TECHNIQUE: Ultrasound of the pelvis is performed using both transabdominal and transvaginal transducers along with Doppler. Transvaginal imaging is performed due to inadequate visualization transabdominally. FINDINGS: Uterus: The uterus is anteverted and measures 7.1 x 3.5 x 4.6 cm. Cervix is normal in appearance with small nabothian cysts. The double wall endometrial thickness is 11 mm. This is thickened. In addition, there is an oval hypoechoic circumscribed focus in the dorsal fundal endometrial stripe measuring 0.7 x 0.6 x 1.7 cm, suspicious for an endometrial polyp. The uterus is smooth in contour and has mildly heterogeneous myometrial echogenicity. No visible fibroid. Adnexa: The right ovary was visualized. There is normal color flow to the adnexa. There is no ovarian torsion. There is no pelvic ascites or fluid collection. There are no adnexal masses. Right ovary measures 1.8 x 1.3 x 1.5 cm. Volume = 1.8 mL. Left ovary could not be identified with certainty. US/US pelvic and transvaginal IMPRESSION: 1. Mildly thickened endometrium at 11 mm. 2. Oval hypoechoic circumscribed focus in the dorsal fundal endometrial stripe measuring 7 x 6 x 17 mm, suspicious for an endometrial polyp. 3. No definite myometrial mass. 4. Normal left ovary. 5. The right ovary could not be definitively visualized. No adnexal masses present. Electronically signed by: Tyler Molina MD 05/20/2025 02:36 PM EDT
== END 2025-05-20 13:54 | disposition home or self-care (01) ==
LOC: HO.HMGCX 13:53
PROVIDERS: PCP Internal Medicine; Visit Provider Internal Medicine
DX: N95.0 Postmenopausal bleeding (principal)
CPT/HCPCS: 76830; 76856

== ENCOUNTER → 2025-05-20 13:58 | Outpatient (BNV) | payer MEDICARE, OTHER, SELFPAY | PROVIDERS: PCP Internal Medicine; Visit Provider Radiology Diagnostic Radiology | DX: N85.8 Other specified noninflammatory disorders of uterus (principal) | CPT/HCPCS: 76830; 76856 ==

== ENCOUNTER 2025-06-16 09:49 | Outpatient (AMB) | payer OTHER, MEDICARE, SELFPAY ==
--- NOTE | 2025-06-16 10:06 | MHC.OFFVIS ---
Intake Visit Reasons: Us follow up /EMB? Affiliate Marketing Coordinator: Affiliate Marketing Coordinator Present Allergies No Known Allergies Allergy (Verified 04/05/25 07:59) Is last menstrual period known: Yes HPI Comments Details: Patient is here today for a follow up pelvic ultrasound. History of postmenopausal bleeding. She denies any pelvic pain. [facility] Medical History PTSD (post-traumatic stress disorder) Knee injury Annual physical exam Normal Pap smear Osteopenia Dysplastic nevus of face History of mammogram Iron deficiency Vitamin B 12 deficiency Vitamin D deficiency Anemia DM type 2 (diabetes mellitus, type 2) Surgical History History of hemicolectomy History of colonoscopy H/O gastric bypass Family History Father Cancer Mother No problems noted. Brother Substance use disorder Brother No problems noted. Sister No problems noted. Son No problems noted. 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 [address] Ultrasound Report Signed Patient: Keena Rivas MR#: [id number] : 1955 Acct:[id number] Age/Sex: 69 / F ADM Date: 05/20/25 Loc: HO.HMGCX Attending Dr: Amie Salmeron MD Ordering Physician: Amie Salmeron MD Date of Service: 05/20/25 Procedure(s): US pelvic and transvaginal Accession Number(s): [id number] cc: Amie Salmeron MD~ EXAMINATION: US PELVIS CLINICAL INFORMATION: Postmenopausal bleeding. COMPARISON: None available. TECHNIQUE: Ultrasound of the pelvis is performed using both transabdominal and transvaginal transducers along with Doppler. Transvaginal imaging is performed due to inadequate visualization transabdominally. FINDINGS: Uterus: The uterus is anteverted and measures 7.1 x 3.5 x 4.6 cm. Cervix is normal in appearance with small nabothian cysts. The double wall endometrial thickness is 11 mm. This is thickened. In addition, there is an oval hypoechoic circumscribed focus in the dorsal fundal endometrial stripe measuring 0.7 x 0.6 x 1.7 cm, suspicious for an endometrial polyp. The uterus is smooth in contour and has mildly heterogeneous myometrial echogenicity. No visible fibroid. Adnexa: The right ovary was visualized. There is normal color flow to the adnexa. There is no ovarian torsion. There is no pelvic ascites or fluid collection. There are no adnexal masses. Right ovary measures 1.8 x 1.3 x 1.5 cm. Volume = 1.8 mL. Left ovary could not be identified with certainty. US/US pelvic and transvaginal IMPRESSION: 1. Mildly thickened endometrium at 11 mm. 2. Oval hypoechoic circumscribed focus in the dorsal fundal endometrial stripe measuring 7 x 6 x 17 mm, suspicious for an endometrial polyp. 3. No definite myometrial mass. 4. Normal left ovary. 5. The right ovary could not be definitively visualized. No adnexal masses present. Electronically signed by: Tyler Molina MD 05/20/2025 02:36 PM EDT Dictated By: Tyler Molina MD Signed By: <Electronically signed by Tyler Molina MD in OV> 05/20/25 1436 DD/ 1404 TD/TT: 05/20/25 1425 Chemist Steroids: Assessment & Plan Assessment & Plan (1) Postmenopausal bleeding: Code(s): N95.0 - Postmenopausal bleeding Category: Medical Plan: Discussed ultrasound findings as follows- Plan US/US pelvic and transvaginal IMPRESSION: 1. Mildly thickened endometrium at 11 mm. 2. Oval hypoechoic circumscribed focus in the dorsal fundal endometrial stripe measuring 7 x 6 x 17 mm, suspicious for an endometrial polyp. 3. No definite myometrial mass. 4. Normal left ovary. 5. The right ovary could not be definitively visualized. No adnexal masses present. Recommended hysteroscopy consult with Dr. Carrillo. Preprocedure overview discussed. Purpose of the procedure explained. The patient expressed understanding and agreement with the plan of care. All of her questions and concerns were addressed to the best of my ability. This note is constructed using voice recognition software. While every effort has been made to ensure accuracy, travograph operator errors may have been included. Coding Level of Care Code Est Pt Level 3 (42142) Diagnoses Postmenopausal bleeding N95.0
--- OUTSIDE RECORDS SUMMARY | 2025-06-16 10:17 | XMS_ITS | Clinical Summary ---
Author Organization [facility] Address [address] [place] [address] Care Team Providers Care Graphics Programmer Name Role Phone Estefania Munoz MD Primary Care Provider [phone] Surgical History Surgery Date Site/Laterality Comments GASTRIC BYPASS 2009 PROCEDURE: [place] GASTRIC RSTCV W/BYP W/SM INT RCNSTJ LIMIT [...] PCV) 04/07/2010 04/07/2009 Breast Cancer Screening 02/16/2023 02/17/20 21, 11/02/2019, 10/28/2018 COVID-19 Vaccine (1 - 2023-2 5 season) 2024 Depression Screening 11/10/2024 Influenza Vaccine (#1) 2025 7, 08/05/2016 DTaP,Tdap,and Td Vaccines (3 - Td [...] Recently Relevant to Health Maintenance Results * [facility] SCREENING DIGITAL (02/16/2021 2:14 PM EDT) Anatomical Region Laterality Modality Mammography 02/16/2021 9:47 AM EDT Narrative 02/16/2021 2:14 PM EDT [facility] Diagnostic Imaging Department [address] [place] [address] Patient: YANIRA LEHMAN Mercedes /Age/Sex: 1955 - 65 - F Unit#: [id number] [facility] Mnemonic/Ordering Site: [facility] Ordering Physician: AMIE SALMERON MD [facility] Screening Digital - 02/16/21 - 1009 EXAM: [facility] Screening Digital EXAM DATE AND TIME: 02/16/2021 10:10 AM HISTORY: Family history of breast carcinoma in a nonspecified relative. Annual screening mammography COMPARISON: 11/01/2019 through 08/15/2016 TECHNIQUE: CC and MLO views of both breasts were obtained using full field digital mammography. Bilateral digital breast tomosynthesis was performed in the MLO projection. Computer aided detection with the [employer] 7.2-H was employed. TISSUE DENSITY: b. There are scattered areas of fibroglandular density. FINDINGS: No suspicious masses, grouped microcalcifications, or areas of architectural distortion are seen. Benign left breast calcifications are present. The skin and vascularity are unremarkable. IMPRESSION: Stable mammographic appearance of the breasts. No evidence of malignancy is seen. A negative mammogram in the presence of a clinically suspicious palpable abnormality does not preclude the possibility of malignancy or alter the indications for biopsy. BI-RADS: Category 1: Negative RECOMMENDATION(S): 1: Routine screening mammogram BILATERAL in 1 year. 50448, 50705 3342F, 7025F Dictating Physician: AMIE BARTON MD Electronically Signed by: AMIE BARTON MD Dic Date/Time: 02/16/21 1411 Sign date/Time: 02/16/21 1414 Procedure Note Claudine Barton MD - 10/29/2022 [facility] Diagnostic Imaging Department [address] [place], [place] [id number] Patient: YANIRA LEHMAN Mercedes /Age/Sex: 1955 - 65 - F Unit#: [id number] Location/Status: [facility] Mnemonic/Ordering Site: [facility] Ordering Physician: AMIE SALMERON MD [facility] Screening Digital - 02/16/21 - 1009 EXAM: [facility] Screening Digital EXAM DATE AND TIME: 02/16/2021 10:10 AM HISTORY: Family history of breast carcinoma in a nonspecified relative. Annual screening mammography COMPARISON: 11/01/2019 through 08/15/2016 TECHNIQUE: CC and MLO views of both breasts were obtained using fullfield digital mammography. Bilateral digital breast tomosynthesis was performedin the MLO projection. Computer aided detection with the [employer] 7.2-Hwas employed. TISSUE DENSITY: b. There are scattered [...] Routine screening mammogram BILATERAL in 1 year. 07082, 17195 3342F, 7025F Dictating Physician: AMIE BARTON MD Electronically Signed by: AMIE BARTON MD Dic Date/Time: 02/16/21 1411 Sign date/Time: 02/16/21 141 us Amie Salmeron MD IMG BI PROCEDURES Final Resul t from Last 3 Months or Most Recently Relevant to Health Maintenance Care Teams Graphics Programmer Relationship Specialty Start Date End Date Estefania Munoz MD PCP - General Internal Medicine 02/02/18
--- OUTSIDE RECORDS SUMMARY | 2025-06-16 10:17 | XMS_ITS ---
Author Name [facility] Organization Unknown Care Team Organization Name Specialty Phone Email Start Date End [facility] PROVIDER SYSTEM Primary Care 02/11/20212020
--- OUTSIDE RECORDS SUMMARY | 2025-06-16 10:17 | XMS_ITS | Clinical Summary ---
Author Organization [facility] Address [address] [place] [address] Care Team Providers Care Photograph Finisher Name Role Phone System, Provider Not In [...] 70 02/11/2021 6:14 PM EDT Temperature 36.8 C (98.3 F) 02/11/2021 6:14 PM EDT Respiratory Rate 18 02/11/2021 6:14 PM EDT [...] patient's age to complete this topic Insurance [facility] (AUTO/LIABILITY) Care Teams Photograph Finisher Relationship Specialty Start Date End Date System, Provider Not In PCP - General 02/11/21
--- OUTSIDE RECORDS SUMMARY | 2025-06-16 10:17 | XMS_ITS | Clinical Summary ---
Author Organization [facility] Address [address] [place] [address] Phone Care Team Providers Care Him Manager Name Role Phone Amie Salmeron MD Primary Care Provider [phone] Social History Tobacco Use Types Packs/Day Years Used Date Smoking Tobacco: Never Assessed Education Answer Date Recorded Are you interested in more education? Not on randi e 03/15/2023 Are you concerned about learning? Not on file 03/15/2023 No 03/15/2023 No 03/15/2023 Digital Access Answer Date Recorded No 04/06/2023 No 04/06/2023 No 04/06/2023 Reliable internet access at home? Not on file 04/06/2023 Device with a working camera? Not on file Comments Unknown Sex and Gender Information Value Date Recorded Sex Assigned at Not on file Legal Sex Female 5:35 PM EST Gender Identity Not on file Sexual Orientation Not on file Plan of Treatment Health Maintenance Due Date Last Done Comments LIPID PANEL 1955 DEPRESSION SCREENING 1969 SMOKING Hx and SMOKELESS TOBACCO SCREENING 1970 HEPATITIS C SCREENING 1975 MAMMOGRAM 1997 COLOGUARD 2002 COLONOSCOPY 2002 COLORECTAL CANCER SCREENING 2002 FIT TEST 2002 FOBT 2002 SIGMOIDOSCOPY 2002 VIRTUAL COLONOSCOPY 2002 ZOSTER VACCINES (1 of 2) 2007 PNEUMOCOCCAL VACCINES (50+ years) (2 of 2 - PCV) 04/07/2010 04/07/2009 OSTEOPOROSIS SCREENING INITI AL (ONE-TIME) 2022 COVID-19 VACCINE (3 - 2023-2 5 season) 2024 03/11/2021, 02/21/2021 Adult Td,Tdap Booster 05/19/2029 05/19/2019 , 04/07/2009 RSV VACCINE (1 - 1-dose 75+ series) 2032 HEPATITIS A VACCINES Aged Out No long er eligible based on patient's age to complete this topic HIB VACCINES Aged Out No longer eligi ble based on patient's age to complete this topic MENINGOCOCCAL VACCINES (ACWY) Aged Out No longer eligible based on patient's age to complete this topic MENINGOCOCCAL VACCINES (B) Aged Out N o longer eligible based on patient's age to complete this topic Medical Devices Not on file Insurance [employer] TOTAL CHOICE INDEMNITY [employer] TOTAL CHOICE INDEMNITY [employer] [facility] TOTAL CHOICE INDEMNITY [employer] [facility] TOTAL CHOICE INDEMNITY [employer] [facility] TOTAL CHOICE INDEMNITY [employer] TOTAL CHOICE INDEMNITY [employer] TOTAL CHOICE INDEMNITY [facility] [facility] TOTAL CHOICE INDEMNITY [facility] TOTAL CHOICE INDEMNITY Care Teams Him Manager Relationship Specialty Start Date End Date Amie Salmeron MD [address] [place] [address] PCP - General Internal Medicine 06/25/21 Additional Source Comments The information contained in this document represents components of the legal health record. It is not the complete legal health record.[facility]
== END 2025-06-16 11:42 | disposition home or self-care (01) ==
LOC: HO.HWS 09:49
PROVIDERS: PCP Internal Medicine; Visit Provider Advanced Practice Midwife
DX: N95.0 Postmenopausal bleeding (principal)
CPT/HCPCS: 99213

== ENCOUNTER 2025-07-14 08:09 | Outpatient (REF) | payer OTHER, MEDICARE, SELFPAY | END 2025-07-14 08:10 | disposition home or self-care (01) | LOC: HO.LNP 08:09 | PROVIDERS: PCP Internal Medicine; Visit Provider Obstetrics & Gynecology | DX: N95.0 Postmenopausal bleeding (principal); Z78.0 Asymptomatic menopausal state | CPT/HCPCS: 87626; 88175 ==

== ENCOUNTER 2025-07-14 08:09 | Outpatient (AMB) | payer OTHER, MEDICARE, SELFPAY ==
--- NOTE | 2025-07-14 08:14 | MHC.OFFVIS ---
Intake Visit Reasons: Hysteroscopy consult / ? polyp Construction Code Administrator: Construction Code Administrator Present Accompanied by: Self / Same As Patient Allergies No Known Allergies Allergy (Verified 07/14/25 08:29) Is last menstrual period known: Yes Last menstrual period: 09/07/20 Post menopausal: No Patient : No Do you need a note to return to daycare/school/sports/work: Yes (for surgery on friday) HPI Comments Details: Presenting referred from the mariela Isabel CNM regarding postmenopausal bleeding. 06/03 Pelvic ultrasound showed the following: Uterus: The uterus is anteverted and measures 7.1 x 3.5 x 4.6 cm. Cervix is normal in appearance with small nabothian cysts. The double wall endometrial thickness is 11 mm. This is thickened. In addition, there is an oval hypoechoic circumscribed focus in the dorsal fundal endometrial stripe measuring 0.7 x 0.6 x 1.7 cm, suspicious for an endometrial polyp. The uterus is smooth in contour and has mildly heterogeneous myometrial echogenicity. No visible fibroid. Adnexa: The right ovary was visualized. There is normal color flow to the adnexa. There is no ovarian torsion. There is no pelvic ascites or fluid collection. There are no adnexal masses. Right ovary measures 1.8 x 1.3 x 1.5 cm. Volume = 1.8 mL. Left ovary could not be identified with certainty. [facility] Medical History PTSD (post-traumatic stress disorder) Knee injury Annual physical exam Normal Pap smear Osteopenia Dysplastic nevus of face History of mammogram Iron deficiency Vitamin B 12 deficiency Vitamin D deficiency Anemia DM type 2 (diabetes mellitus, type 2) Surgical History History of hemicolectomy History of colonoscopy H/O gastric bypass Family History Father Cancer Mother No problems noted. Brother Substance use disorder Brother No problems noted. Sister No problems noted. Son No problems noted. 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: No Hearing needs: No Vision needs: Yes Female Reproductive History Menstrual Date of last menstrual period: 09/07/20 Total pregnancies: 2 Full term: 2 Review of Systems Const All systems reviewed & are unremarkable except as noted in HPI and below Card Reports as per HPI and Reports no additional complaints Resp Reports as per HPI and Reports no additional complaints GI Reports as per HPI and Reports no additional complaints Reports as per HPI Physical Exam Const General: cooperative, healthy appearing and comfortable Resp Effort & Inspection: normal respiratory effort Auscultation: clear to auscultation bilaterally Percussion: percussion normal Cardio Palpation: normal PMI Rate: regular rate Rhythm: regular rhythm Heart sounds: no murmurs and no rubs Peripheral pulses: Peripheral pulses 2+ throughout GI Inspection: Yes normal to inspection Palpation (GI): Soft to palpation, nontender, no guarding, not rigid and No hepatosplenomegaly present Percussion: Yes normal to percussion Auscultation: normal bowel sounds Rectal Exam - Female: deferred General: Yes no CVA tenderness External Female Exam: normal external appearance and normal appearance of the urethra Speculum Exam - Vagina: normal appearance of the vagina, normal palpation, no lesions and no masses Speculum Exam - Cervix: normal appearance of the cervix, normal palpation, no lesions, no masses and nontender Bimanual exam- vagina & uterus: normal bimanual exam, normal palpation, uterine size normal, normal palpation, uterine shape normal, No Cervical tenderness present and non-tender Bimanual Exam- Adnexa, other: normal adnexae Back/Spine/Pelvis Back: no CVA tenderness Assessment & Plan Assessment & Plan (1) Postmenopausal bleeding: Comment: Endometrial polyp by ultrasound Code(s): N95.0 - Postmenopausal bleeding Category: Medical Plan: Co testing done Discussed with the patient the pelvic ultrasound findings, the endometrial stripe thickenss measured by ultrasound was more than 4mm and the finding of possible endometrial polyp. The negative predictive value, positive predictive value, Sensitivity, specificity of using ultrasound measurement of endometrial stripe to detecting endometrial pathology including hyperplasia , polyp or cancer were discussed with the patient. Recommended to the patient that the next step is an endometrial sampling via hysteroscopy D&C possible polypectomy versus endometrial biopsy to r/o endometrial pathology including hyperplasia or cancer. All the pros and cons risks and benefits of each approach were discussed with the patient, endometrial biopsy being less invasive, office procedure with less sensitivity and inability diagnose a polyp and removal versus hysteroscopy done under anesthesia more invasive more sensitive to endometrial cancer and possibility of diagnosing and endometrial polyp with the possibility of polypectomy. All questions were answered pt verbalized understanding and decided to proceed with hysteroscopy D&C possible polypectomy/myomectomy Discussed with the patient the procedure , all benefits and risks including but not limited to inability to complete the procedure , insufficient endometrial tissue for a complete evaluation of the endometrial cavity , bleeding, infection, possible need for blood transfusion with all its risk ( HIV,syphilis, Hepatitis, anaphylaxis shock, others..), injury to bladder, rectum, possible need for laparoscopy/laparotomy or hysterectomy. The patient verbalized understanding and signed the consent. Instructions given the patient to discontinue tirzepatide a week prior to the procedure, stay NPO after midnight the day prior to the procedure and not to take any medicationthe morning of the surgical procedure and to schedule a 2 week postoperative appointment Coding Level of Care Code Est Pt Level 3 (44671) Diagnoses Postmenopausal bleeding N95.0
--- OUTSIDE RECORDS SUMMARY | 2025-07-14 08:27 | XMS_ITS | Clinical Summary ---
Author Organization [facility] Address [address] [place] [address] Phone Care Team Providers Care Sign Painter Name Role Phone Amie Salmeron MD Primary Care Provider [phone] Social History Tobacco Use Types Packs/Day Years [...] topic Medical Devices Not on file Insurance [employer] TOTAL CHOICE INDEMNITY [employer] TOTAL CHOICE INDEMNITY [employer] [facility] TOTAL CHOICE INDEMNITY [employer] [facility] TOTAL CHOICE INDEMNITY [employer] [facility] TOTAL CHOICE INDEMNITY [email or web address] TOTAL CHOICE INDEMNITY [email or web address]OTAL CHOICE INDEMNITY [email or web address] TOTAL CHOICE INDEMNITY [facility] TOTAL CHOICE INDEMNITY Care Teams Sign Painter Relationship Specialty Start Date End Date Amie Salmeron MD [address] [place] [address] PCP - General Internal Medicine 06/25/21 Additional Source Comments The information contained in this document represents components of the legal health record. It is not the complete legal health record.[facility]
--- OUTSIDE RECORDS SUMMARY | 2025-07-14 08:27 | XMS_ITS | Clinical Summary ---
Author Organization [facility] Address [address] [place] [address] Care Team Providers Care Locum [employer] Hospitalist Name Role Phone Estefania Munoz MD Primary Care Provider [phone] Surgical History Surgery Date Site/Laterality Comments GASTRIC BYPASS 2009 PROCEDURE: [place] GASTRIC RSTCV W/BYP W/SM INT RCNSTJ LIMIT [...] Cancer Screening 02/16/2023 02/17/20 21, 11/02/2019, 10/28/2018 Depression Screening 11/10/2024 COVID-19 Vaccine (1 - 2023-2 5 season) 2025 Influenza Vaccine (#1) 2025 7, 08/05/2016 DTaP,Tdap,and [...] Recently Relevant to Health Maintenance Results * [facility] SCREENING DIGITAL (02/16/2021 2:14 PM EDT) Anatomical Region Laterality Modality Mammography 02/16/2021 9:47 AM EDT Narrative 02/16/2021 2:14 PM EDT [facility] Diagnostic Imaging Department [address] [place] [address] Patient: YANIRA LEHMAN Mercedes /Age/Sex: 1955 - 65 - F Unit#: [id number] [facility]Ordering Site: [facility] Ordering Physician: AMIE SALMERON MD [facility] Screening Digital - 02/16/21 - 1009 EXAM: [facility] Screening Digital EXAM DATE AND TIME: 02/16/2021 10:10 AM HISTORY: Family history of breast carcinoma in a nonspecified relative. Annual screening mammography COMPARISON: 11/01/2019 through 08/15/2016 TECHNIQUE: CC and MLO views of both breasts were obtained using full field digital mammography. Bilateral digital breast tomosynthesis was performed in the MLO projection. Computer aided detection with the [employer] 7.2-H was employed. TISSUE DENSITY: b. There [...] Routine screening mammogram BILATERAL in 1 year. 24546, 98672 3342F, 7025F Dictating Physician: AMIE BARTON MD Electronically Signed by: AMIE BARTON MD Dic Date/Time: 02/16/21 1411 Sign date/Time: 02/16/21 1414 Procedure Note Claudine Barton MD - 10/29/2022 [facility] Diagnostic Imaging Department [address] [place], [place] [id number] Patient: YANIRA LEHMAN Mercedes /Age/Sex: 1955 - 65 - F Unit#: [id number] Location/Status: [facility] Mnemonic/Ordering Site: [facility] Ordering Physician: AMIE SALMERON MD [facility] Screening Digital - 02/16/21 - 1009 EXAM: [facility] Screening Digital EXAM DATE AND TIME: 02/16/2021 10:10 AM HISTORY: Family history of breast carcinoma in a nonspecified relative. Annual screening mammography COMPARISON: 11/01/2019 through 08/15/2016 TECHNIQUE: CC and MLO views of both breasts were obtained using fullfield digital mammography. Bilateral digital breast tomosynthesis was performedin the MLO projection. Computer aided detection with the [employer] 7.2-Hwas employed. TISSUE DENSITY: b. There are [...] Routine screening mammogram BILATERAL in 1 year. 68941, 27185 3342F, 7025F Dictating Physician: AMIE BARTON MD Electronically Signed by: AMIE BARTON MD Dic Date/Time: 02/16/21 1411 Sign date/Time: 02/16/21 141 us Amie Salmeron MD IMG BI PROCEDURES Final Resul t from Last 3 Months or Most Recently Relevant to Health Maintenance Care Teams [employer] Hospitalist Relationship Specialty Start Date End Date Estefania Munoz MD PCP - General Internal Medicine 02/02/18
--- OUTSIDE RECORDS SUMMARY | 2025-07-14 08:27 | XMS_ITS | Clinical Summary ---
Author Organization [facility] Address [address] [place] [address] Care Team Providers Care Trailer Assembler Name Role Phone System, Provider Not In [...] Health Maintenance Due Date Last Done Comments Advance Care Planning 1955 Hepatitis C Virus Screening 1955 Mammogram 1997 [...] [facility] [place] Care Teams Trailer Assembler Relationship Specialty Start Date End Date System, Provider Not In PCP - General 02/11/21
== END 2025-07-14 09:21 | disposition home or self-care (01) ==
LOC: HO.HWS 08:09
PROVIDERS: PCP Internal Medicine; Visit Provider Obstetrics & Gynecology
DX: N95.0 Postmenopausal bleeding (principal)
CPT/HCPCS: 99213

== ENCOUNTER 2025-07-20 12:35 | Day surgery (SDC) | payer MEDICARE, OTHER, SELFPAY ==
--- NOTE | 2025-07-18 15:04 | P.CONAN_ITS ---
Documented by User: Renetta Garrido NP 07/18/25 15:07 HPI - Anesthesia Eval Consult details Narrative: 69 yr old female for D&C Hysteroscopy,possible myomectomy,possible polypectomy Type 2 DM: A1C 5.8% Anesthesia Pre-Procedure Meds Is the patient on any of the following meds?: GLP1/DPP4 and SGLT2 Inhib PMFSH Active Problems Active Problems: All Active Problems (Updated 07/14/25 @ 08:48 by Shai Carrillo MD) Postmenopausal bleeding (Acute) Hyperlipidemia (Acute) Vitamin D deficiency (Acute) History of colonoscopy (Acute) Internal hemorrhoids (Acute) H/O gastric bypass (Acute) History of adenomatous polyp of colon (Acute) Postmenopausal (Acute) PTSD (post-traumatic stress disorder) (Acute) Knee injury (Acute) Vitamin B 12 deficiency (Acute) Annual physical exam (Acute) Normal Pap smear (Acute) Osteopenia (Acute) Dysplastic nevus of face (Acute) Vitamin D deficiency (Acute) Anemia (Acute) DM type 2 (diabetes mellitus, type 2) (Acute) Past Medical History Medical History Cataract, left eye PTSD (post-traumatic stress disorder) Knee injury Annual physical exam Normal Pap smear Osteopenia Dysplastic nevus of face History of mammogram Iron deficiency Vitamin B 12 deficiency Vitamin D deficiency Anemia DM type 2 (diabetes mellitus, type 2) Family History Family History Father Cancer Mother No problems noted. Brother Substance use disorder Brother No problems noted. Sister No problems noted. Son No problems noted. Paternal Grandmother History of breast cancer Surgical History Surgical History History of ankle surgery History of hemicolectomy History of colonoscopy H/O gastric bypass Social History Social History Housing: House Alcohol intake: current Alcohol intake frequency: holidays/special occasions only Patient Tobacco Use Status: Former Tobacco user e-Cigarette/Vaping Use: Never Used Use of substances other than those prescribed or required for medical reasons: No Are you DNR?: No Advance Directives: No Advance Directives Information Provided: Yes Patient : No : No Poor oral hygiene: No service: No 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 occupational status: employed 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: No Hearing needs: No Vision needs: Yes Meds Allergies Allergy/AdvReac Type Severity Reaction Status Date / Time No Known Allergies Allergy Verified 07/14/25 08:29 Home Medications ?Medication ?Instructions ?Recorded ?Confirmed ?Last Taken ?Type calcium carbonate [Calcium 600] 600 mg PO .twice weekl y 03/31/23 03/28/25 Unknown History magnesium citrate 100 mg tablet 100 mg PO .twice a wee k 03/31/23 03/28/25 Unknown History mecobalamin (vitamin B12) 5,000 5,000 mcg PO .twice we ekly 03/31/23 03/28/25 Unknown History mcg disintegrating tablet Documented by User: Pablo June MD 07/20/25 14:14 HPI - Anesthesia Eval Anesthesia Pre-Procedure Meds If yes to any meds - educate patient: Pt education - increased risk of aspiration and/or euvolemic DKA [facility] Past Medical History Medical History Cataract, left eye PTSD (post-traumatic stress disorder) Knee injury Annual physical exam Normal Pap smear Osteopenia Dysplastic nevus of face History of mammogram Iron deficiency Vitamin B 12 deficiency Vitamin D deficiency Anemia DM type 2 (diabetes mellitus, type 2) Functional capacity: independent ambulation Family History Family History Father Cancer Mother No problems noted. Brother Substance use disorder Brother No problems noted. Sister No problems noted. Son No problems noted. Paternal Grandmother History of breast cancer Family history of problems with anesthesia: No Surgical History Surgical History History of ankle surgery History of hemicolectomy History of colonoscopy H/O gastric bypass History of Problems with Anesthesia: No Social History Social History Housing: House Alcohol intake: current Alcohol intake frequency: holidays/special occasions only Patient Tobacco Use Status: Former Tobacco user e-Cigarette/Vaping Use: Never Used Use of substances other than those prescribed or required for medical reasons: No Are you DNR?: No Advance Directives: No Advance Directives Information Provided: Yes Patient : No : No Poor oral hygiene: No service: No 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 occupational status: employed 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: No Hearing needs: No Vision needs: Yes Meds Allergies Allergy/AdvReac Type Severity Reaction Status Date / Time No Known Allergies Allergy Verified 07/14/25 08:29 Home Medications ?Medication ?Instructions ?Recorded ?Confirmed ?Last Taken ?Type calcium carbonate [Calcium 600] 600 mg PO .twice weekl y 03/31/23 03/28/25 Unknown History magnesium citrate 100 mg tablet 100 mg PO .twice a wee k 03/31/23 03/28/25 Unknown History mecobalamin (vitamin B12) 5,000 5,000 mcg PO .twice we ekly 03/31/23 03/28/25 Unknown History mcg disintegrating tablet Exam Exam Date and Time: 07/20/2025 Airway Mallampati Class: I TM Dist: >3cm Neck ROM: Full Denture: Upper Partial: Upper Heart: rrr Lungs: cta Other: normal Assessment and Plan Assessment Anesthesia Assessment: Anesthesia Plan Discussed and Chart Reviewed Final Anesthetic Review Family History of Problems with Anesthesia: No History of Problems with Anesthesia: No NPO: Yes ASA Class: II Final Preanesthetic Review: No Changes in Pt Med Stat, Meds/Allgs Chart Reviewed, Consent Obtained/Reviewed and Anes Risks/Benef Reviewed Patient Risk: Low Procedure Risk: Low Anesthetic Plan Anesthetic Plan: GA Disposition: Standard PACU
[2025-07-20 13:11] VITALS: BMI 25.2
[2025-07-20 13:23] VITALS: BP 131/62; PULSE 63; RESP 16; TEMP 36.6; O2SAT 95
[2025-07-20 13:31] LABS: Glucose, Whole Blood 90 mg/dL (60-115)
[2025-07-20] MEDS: Lactated Ringers 1,000 ML 100 ML IVCONT (13:43)
--- NOTE | 2025-07-20 14:18 | MHC.SHP ---
Pre-Procedural Eval Section A - 24 Hr Update-Section A only Date of Service: 07/20/25 The patient is an INPATIENT: No Changes since office visit: No Cold of Flu in the past 2 weeks, No New Medical Problems, No Changes in Medication and No Patient answered all questions The patient has been examined within 24 hours of the surgical procedure. The History & Physical has been completed within 30 days and I have reviewed it.: Yes Section B - Complete if H&P > 30 days Chief Complaint: Postmenopausal bleeding Allergies: Allergies Allergy/AdvReac Type Severity Reaction Status Date / Time No Known Allergies Allergy Verified 07/14/25 08:29 Plan Diagnosis/Plan: Unchanged I have reviewed the history and physical and performed a pertinent physical examination on my patient. No changes have occurred unless specified. Time Spent With Patient Time: Total time managing care of this patient today ____ minutes.
--- NOTE | 2025-07-20 15:01 | PM.OP ---
Brief Operative Note Date of Service: 07/20/25 Pre-op diagnosis: Postmenopausal bleeding, endometrial polyp by ultrasound Post-op diagnosis: same (Endometrial polyp) Procedure: Hysteroscopy D&C, Polypectomy Surgeon: Shai Carrillo MD Anesthesia: GLMA Was an Powder Shoveler used for this Procedure?: No Estimated blood loss (mL): 0 Pathology: other (Endometrial Scrapping. Polyp) Condition: stable Disposition: PACU
--- NOTE | 2025-07-20 15:02 | P.OP_ITS ---
Operative Note Operative Note Date of Service: 07/20/25 Narrative: Preop Diagnosis: Postmenopausal bleeding, Endometrial polyp by US Operation: Diagnostic Hysteroscopy, Dilataion & Curettage and polypectomy Post Op Diagnosis: Endometrial Polyp QBL: Minimal Anesthesia: GLMA Surgeon: Shai Carrillo MD Market Risk Specialist: None Complication: None Pathology: Endometrial Scrapings, Endometrial polyp Procedure: The patient was put in the dorsal lithotomy position, scrubbed, and draped in the usual manner. A sterile speculum was inserted in the patient's vagina. The anterior lip of the cervix was grasped with a single tooth tenaculum. The cervix was dilated up to 5 mm, then the scope was inserted in the patient's uterus. Inspection revealed endometrial polyp. The Myosure Reach device was used; it was introduced through the operative channel and polypectomy done with no complications. The scope was then taken out from the uterine cavity, sharp curettings was carried on with minimal to moderate amount of tissues retrieved. At the end of the procedure, all instruments were taken out of the patient uterine and vaginal cavity. The single tooth tenaculum was removed and homeostasis was assured using pressure,. The patient tolerated the procedure well and was transferred to the PACU in a stable condition.
[2025-07-20 15:10] VITALS: BP 110/75; PULSE 80; RESP 16; TEMP 36.5; O2SAT 99
[2025-07-20 15:15] VITALS: BP 122/66; PULSE 62; RESP 16; O2SAT 95
[2025-07-20 15:20] VITALS: BP 124/65; PULSE 60; RESP 16; O2SAT 95
[2025-07-20 15:25] VITALS: BP 121/56; PULSE 56; RESP 16; O2SAT 97
[2025-07-20 15:40] VITALS: BP 115/58; PULSE 54; RESP 16; TEMP 36.2; O2SAT 98
== END 2025-07-20 15:52 | disposition home or self-care (01) ==
PROVIDERS: PCP Internal Medicine; Visit Provider Obstetrics & Gynecology
PROC: 0UDB8ZZ Extraction of Endometrium, Via Natural or Artificial Opening Endoscopic (ICD-10-PCS; CPT 58558; principal; 2025-07-20 14:30)
DX: N95.0 Postmenopausal bleeding (principal); D64.9 Anemia, unspecified; M85.80 Other specified disorders of bone density and structure, unspecified site; E61.1 Iron deficiency; E55.9 Vitamin D deficiency, unspecified; E53.8 Deficiency of other specified B group vitamins; F43.10 Post-traumatic stress disorder, unspecified; Z79.899 Other long term (current) drug therapy; Z90.49 Acquired absence of other specified parts of digestive tract; Z98.84 Bariatric surgery status; Z87.891 Personal history of nicotine dependence
CPT/HCPCS: 58558; 82947; 88305; 88341; 88342; J1100; J1885; J2405; J2704; J3010

== ENCOUNTER → 2025-07-20 12:35 | Outpatient (BNV) | payer MEDICARE, OTHER, SELFPAY | PROVIDERS: PCP Internal Medicine; Visit Provider Obstetrics & Gynecology | DX: N84.0 Polyp of corpus uteri (principal); N95.0 Postmenopausal bleeding | CPT/HCPCS: 58558 ==

== ENCOUNTER 2025-08-08 08:54 | Outpatient (AMB) | payer MEDICARE, OTHER, SELFPAY ==
--- OUTSIDE RECORDS SUMMARY | 2023-01-21 09:15 | XMS_ITS | Continuity of Care Document ---
Author Organization [facility] Address [address] [place], [place] [phone] Phone Care Team Providers Care Engraver Optical Frames Name Role Phone Joby LEON, Rodney Unavailable Unavaila ble Allergies, Adverse Reactions, Alerts Substance Reaction Status Criticality No Known Allergies Active No Inform ation Procedures Procedure Date Plastics Consultation Plastics Consultation Advance Directives Directive Yes / No Effective Date File Name No Information Encounters Encounter Description Practice Location Reason(s) For Visit Diagnoses Date Provider Providers Copied on [facility], [address], [place], [place], [address] [place] [address], tel:[phone] [facility] Encounter for cosmetic procedure Joby Stevens. [address], [address] [place] [address], . tel:[phone] Referring Provider: Rodney Hemphill MD P, [address] [place] [address], [address]. tel:[phone] Family History Family Member Type Diagnosis Age [...]
--- NOTE | 2025-08-08 08:56 | MHC.OFFVIS ---
Vital Signs 08/08/25 09:04 Height 5 ft 10 in Weight 173 lb BMI 24.8 BP 118/74 Intake Visit Reasons: post op/colpo Professional Wrestler Required: No Information Interpreted: non-clinical & clinical International Project Engineer: International Project Engineer Present (Mary Anne SWARTZ) Accompanied by: Self / Same As Patient Allergies No Known Allergies Allergy (Verified 08/08/25 09:07) HPI Comments Details: The patient is presenting post hysteroscopy D&C no complaints minimal vaginal bleeding no feverishness chills or abdominal pain. The pathology showed the following: A. Endometrium, polypectomy: High-grade Mullerian Carcinoma. B. Endometrium, curettage: High-grade Mullerian Carcinoma. Comment: The tumor has two morphologies. The more undifferentiated portion of the tumor has neuroendocrine differentiation. Isolated loss of PMS2 immunoreactivity is present in both the undifferentiated and the better differentiated portions of the tumor (appropriate positive stromal immunoreactivity is present). MLH1, MSH2 and MSH6 immunostains are all immunoreactive in the lesional cells - these results are consistent with a microsatellite unstable tumor. Correlation with molecular results is recommended (as well as family history) Co testing showed the following: General Category: Epithelial cell abnormality. Adequacy: Endocervical component present. Interpretation: Malignant cells present Two cell populations: predominantly undifferentiated and few glandular Comment: The Pap test concurs with the current endometrial curettage, see report [id number]. HPV High Risk: Negative HPV Genotyping 16: Negative HPV Genotyping 18: Negative The patient has an appointment scheduled with Dr. Armas on 08/16/2025 at 10:00. Chest x-ray ordered, CT scan of abdomen and pelvis with oral contrast schedule on 08/11 and CA 125 ordered [facility] Medical History Cataract, left eye PTSD (post-traumatic stress disorder) Knee injury Annual physical exam Normal Pap smear Osteopenia Dysplastic nevus of face History of mammogram Iron deficiency Vitamin B 12 deficiency Vitamin D deficiency Anemia DM type 2 (diabetes mellitus, type 2) Surgical History History of ankle surgery History of hemicolectomy History of colonoscopy H/O gastric bypass Family History Father Cancer Mother No problems noted. Brother Substance use disorder Brother No problems noted. Sister No problems noted. Son No problems noted. 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 We thoroughly discussed the procedure itself, including its details, alternatives, and all associated risks. This included but not limited to the following complications such as bleeding, infection, and injury to the vagina, bladder, and vessels, as well as the potential need for transfusion with all its associated risks. Subsequently, the patient sign the consent. Pap smear result: Malignant since present, HPV negative Procedure: During the procedure, the following steps were performed: A speculum was inserted, and acetic acid was applied. Colposcopy was conducted, allowing visualization of the transformation zone. Acetowhite lesions were identified at the 4+6+11+1 o'clock position. Cervical biopsies were obtained from the 4+6+11+1 o'clock position, followed by an endocervical curettage (ECC). Vaginoscopy of the upper vagina revealed no evidence of aceto-white lesions. Hemostasis was achieved using Monsel solution, and the patient tolerated the procedure well. Post-Procedure Instructions: The patient was advised to promptly contact the office or the after hours answering service or go to the emergency room if experiencing a temperature exceeding 100.4?F, abdominal pain, nausea/vomiting, or bleeding. Additionally, the patient was instructed to abstain from vaginal intercourse and bathtub use. The patient confirmed understanding of these instructions. Discharge Instructions: The patient was instructed to schedule a follow-up appointment in 2 weeks for further evaluation and management. Please note that this note was generated using a voice recognition program, and errors may have occurred during shop supervisor. [id number] of cervix including upper vagina with biopsy and ECC Procedure code (CPT) selection complete Assessment & Plan Assessment & Plan (1) Endometrial ca: Comment: high grade mullerian cancer Code(s): C54.1 - Malignant neoplasm of endometrium Category: Medical Plan: Discussed with the patient the pathology results, the recommended surgical staging procedure, and the prognosis. CT scan of abdomen and pelvis with IV and oral contrast (scheduled on 08/11), chest x-ray, and CA 125 ordered. Referral to Solar Project Engineer Onc at [facility]. Appointment scheduled on, with Dr Armas on 08/16 at 10:00, the patient is aware. Instructed the patient to call our office back in case a referral appointment is not scheduled, missed or canceled so that we will assist on rescheduling another appointment, the patient verbalized understanding agreed with the plan. (2) Abnormal Pap smear of cervix: Comment: Malignant cells present HPV negative Code(s): R87.619 - Unspecified abnormal cytological findings in specimens from cervix uteri Category: Medical Plan: Discussed with the patient the results of the Pap smear, Colpo/biopsy/ECC done, see procedure note Orders: Orders CT abdomen pelvis wo/w IV con 08/03/25 C54.1 - Malignant neoplasm of endometrium XR chest 2V 08/03/25 C54.1 - Malignant neoplasm of endometrium CA-125 08/03/25 C54.1 - Malignant neoplasm of endometrium Blood Urea Nitrogen 08/03/25 C54.1 - Malignant neoplasm of endometrium AMB Colposcopy Today R87.619 - Unspecified abnormal cytological findings in specimens from cervix uteri Creatinine 08/03/25 C54.1 - Malignant neoplasm of endometrium Referrals Gynecologic Oncology Referral C54.1 - Malignant neoplasm of endometrium Coding Level of Care Code Est Pt Level 3 (68784) Procedure Only Diagnoses Endometrial ca C54.1 Abnormal Pap smear of cervix R87.619 CPT Codes Colposcopy - CPT: [id number]-[id number] of cervix including upper vagina with biopsy and ECC ([id number])
[2025-08-08 09:04] VITALS: BP 118/74; BMI 24.8
--- OUTSIDE RECORDS SUMMARY | 2025-08-08 09:24 | XMS_ITS | Clinical Summary ---
Author Organization [facility] Address [address] [place] [address] Care Team Providers Care Humidifier Attendant Name Role Phone System, Provider Not In [...] es 65 and older) 2022 Influenza Vaccine 06/10/2025 COVID-19 Vaccine (1 - 2023-2 5 season) 2025 DTaP/Tdap/Td Vaccines (2 - T d or Tdap) 02/11/2031 02/11/2021 RSV Vaccine 60 years and old er and Patients (1 - 1-dose 75+ series) 2032 Hepatitis B Vaccines Aged Out No long er eligible based on patient's age to complete this topic Insurance [facility] (AUTO/LIABILITY) Care Teams Humidifier Attendant Relationship Specialty Start Date End Date System, Provider Not In PCP - General 02/11/21
--- OUTSIDE RECORDS SUMMARY | 2025-08-08 09:24 | XMS_ITS | Clinical Summary ---
Author Organization [facility] Address [address] [place] [address] Phone Care Team Providers Care Dental Assistant Instructor Name Role Phone Amie Salmeron MD Primary Care Provider [phone] Social History Tobacco Use Types Packs/Day Years [...] 2 - PCV) 04/07/2010 04/07/2009 OSTEOPOROSIS SCREENING INITIAL (ONE-TIME) 2022 INFLUENZA VACCINE (#1) 2025 , 09/15/2019, 10/15/2017, Additional history exists COVID-19 VACCINE ( season) 2025 03/11/2021, 02/21/2021 Adult Td,Tdap Booster 05/19/2029 05/19/2019, 009 RSV VACCINE (1 - 1-dose 75+ series) [...] topic Medical Devices Not on file Insurance [email or web address] TOTAL CHOICE INDEMNITY [email or web address] TOTAL CHOICE INDEMNITY [employer] [facility] TOTAL CHOICE INDEMNITY [email or web address] TOTAL CHOICE INDEMNITY [email or web address] TOTAL CHOICE INDEMNITY [employer] [facility] TOTAL CHOICE INDEMNITY [facility] TOTAL CHOICE INDEMNITY [facility] TOTAL CHOICE INDEMNITY [facility] TOTAL CHOICE INDEMNITY Care Teams Dental Assistant Instructor Relationship Specialty Start Date End Date Amie Salmeron MD [address] [address] PCP - General Internal Medicine 06/25/21 Additional Source Comments The information contained in this document represents components of the legal health record. It is not the complete legal health record.[facility]
--- OUTSIDE RECORDS SUMMARY | 2025-08-08 09:24 | XMS_ITS | Clinical Summary ---
Author Organization [facility] Address [address] [place] [address] Care Team Providers Care Cleaning Handyman Name Role Phone Estefania Munoz MD Primary Care Provider [phone] Surgical History Surgery Date Site/Laterality Comments GASTRIC BYPASS 2009 PROCEDURE: [place] GASTRIC RSTCV W/BYP W/SM INT RCNSTJ LIMIT [...] Recently Relevant to Health Maintenance Results * [facility] SCREENING DIGITAL (02/16/2021 2:14 PM EDT) Anatomical Region Laterality Modality Mammography 02/16/2021 9:47 AM EDT Narrative 02/16/2021 2:14 PM EDT [facility] Diagnostic Imaging Department [address] [place] [id number] Patient: YANIRA LEHMAN Mercedes /Age/Sex: 1955 - 65 - F Unit#: [id number] [facility] Mnemonic/Ordering Site: [facility] Ordering Physician: AMIE SALMERON MD [facility] Screening Digital - 02/16/21 - 1009 EXAM: [facility] Screening Digital EXAM DATE AND TIME: 02/16/2021 10:10 AM HISTORY: Family history of breast carcinoma in a nonspecified relative. Annual screening mammography COMPARISON: 11/01/2019 through 08/15/2016 TECHNIQUE: CC and MLO views of both breasts were obtained using full field digital mammography. Bilateral digital breast tomosynthesis was performed in the MLO projection. Computer aided detection with the Ninjathat 7.2-H was employed. TISSUE DENSITY: b. There [...] Routine screening mammogram BILATERAL in 1 year. 85709, [id number] 3342F, 7025F Dictating Physician: AMIE BARTON MD Electronically Signed by: AMIE BARTON MD Dic Date/Time: 02/16/21 1411 Sign date/Time: 02/16/21 1414 Procedure Note Claudine Barton MD - 10/29/2022 [facility] Diagnostic Imaging Department [address] [place], [place] [id number] Patient: YANIRA LEHMAN Mercedes /Age/Sex: 1955 - 65 - F Unit#: [id number] Location/Status: [facility] Mnemonic/Ordering Site: [facility] Ordering Physician: AMIE SALMERON MD [facility] Screening Digital - 02/16/21 - 1009 EXAM: [facility] Screening Digital EXAM DATE AND TIME: 02/16/2021 10:10 AM HISTORY: Family history of breast carcinoma in a nonspecified relative. Annual screening mammography COMPARISON: 11/01/2019 through 08/15/2016 TECHNIQUE: CC and MLO views of both breasts were obtained using fullfield digital mammography. Bilateral digital breast tomosynthesis was performedin the MLO projection. Computer aided detection with the Ninjathat 7.2-Hwas employed. TISSUE DENSITY: b. There are [...] Routine screening mammogram BILATERAL in 1 year. 48539, 45254 3342F, 7025F Dictating Physician: AMIE BARTON MD Electronically Signed by: AMIE BARTON MD Dic Date/Time: 02/16/21 1411 Sign date/Time: 02/16/21 141 us Amie Salmeron MD IMG BI PROCEDURES Final Resul t from Last 3 Months or Most Recently Relevant to Health Maintenance Care Teams Cleaning Handyman Relationship Specialty Start Date End Date Estefania Munoz MD PCP - General Internal Medicine 02/02/18
== END 2025-08-08 09:39 | disposition home or self-care (01) ==
LOC: HO.HWS 08:54
PROVIDERS: PCP Internal Medicine; Visit Provider Obstetrics & Gynecology
DX: C54.1 Malignant neoplasm of endometrium (principal); R87.619 Unspecified abnormal cytological findings in specimens from cervix uteri
CPT/HCPCS: 57454; 99213

== ENCOUNTER 2025-08-08 08:54 | Outpatient (REF) | payer MEDICARE, OTHER, SELFPAY ==
--- NOTE | ~2025-08-08 | XR_ITS ---
EXAMINATION: XR CHEST CLINICAL INFORMATION: C54.1 - Malignant neoplasm of endometrium COMPARISON: None available. TECHNIQUE: 2 views of the chest were obtained. FINDINGS: The cardiac, hilar, and mediastinal contours are normal. The lungs are clear bilaterally. There is no pneumothorax or pleural effusion. There is no focal osseous or soft tissue abnormality. There are cholecystectomy clips present. There is an old healed right mid clavicular fracture. XR/XR chest 2V IMPRESSION: No active pulmonary disease. Electronically signed by: Tyler Molina MD 08/08/2025 10:19 AM EDT
[2025-08-08 11:00] LABS: Blood Urea Nitrogen 11 mg/dL (9-16); Estimated Glomerular Filt Rate > 60
[2025-08-09 09:03] LABS: CA-125 22 U/mL (<35)
== END 2025-08-08 08:55 | disposition home or self-care (01) ==
LOC: HO.XRAY 08:54
PROVIDERS: PCP Internal Medicine; Visit Provider Obstetrics & Gynecology
DX: C54.1 Malignant neoplasm of endometrium (principal); R87.619 Unspecified abnormal cytological findings in specimens from cervix uteri
CPT/HCPCS: 36415; 57454; 71046; 82565; 84520; 86304; 99212

== ENCOUNTER → 2025-08-08 10:01 | Outpatient (BNV) | payer MEDICARE, OTHER, SELFPAY | PROVIDERS: PCP Internal Medicine; Visit Provider Radiology Diagnostic Radiology | DX: C54.1 Malignant neoplasm of endometrium (principal); Z90.49 Acquired absence of other specified parts of digestive tract; Z98.84 Bariatric surgery status | CPT/HCPCS: 71046 ==

== ENCOUNTER 2025-08-08 10:28 | Outpatient (REF) | payer MEDICARE, OTHER, SELFPAY | END 2025-08-08 10:29 | disposition home or self-care (01) | LOC: HO.LNP 10:28 | PROVIDERS: Visit Provider Obstetrics & Gynecology | DX: C54.1 Malignant neoplasm of endometrium (principal); R87.619 Unspecified abnormal cytological findings in specimens from cervix uteri | CPT/HCPCS: 88305; 88341; 88342 ==

== ENCOUNTER 2025-08-11 14:00 | Outpatient (REF) | payer MEDICARE, OTHER, SELFPAY ==
--- OUTSIDE RECORDS SUMMARY | 2023-01-21 09:15 | XMS_ITS | Continuity of Care Document ---
Author Organization [facility] Address [address] [place], [place] [phone] Phone Care Team Providers Care Engineer Booster And Exhauster Name Role Phone Joby LEON, Rodney Unavailable Unavaila ble Allergies, Adverse Reactions, Alerts Substance Reaction Status Criticality No Known Allergies Active No Inform ation Procedures Procedure Date Plastics Consultation Plastics Consultation Advance Directives Directive Yes / No Effective Date File Name No Information Encounters Encounter Description Practice Location Reason(s) For Visit Diagnoses Date Provider Providers Copied [facility], [address], [place], [place], [address] [place] [address], tel:[phone] [facility] Encounter for cosmetic procedure Joby Stevens. [address], [address] [place] [address], . tel:[phone] Referring Provider: Rodney Hemphill MD P, [address] [place] [address], [address]. tel:[phone] Family History Family Member Type Diagnosis Age [...]
--- NOTE | ~2025-08-11 | CT_ITS ---
EXAMINATION: CT ABDOMEN AND PELVIS WITHOUT AND WITH CONTRAST CLINICAL INFORMATION: Endometrial carcinoma. Endometrial biopsy pathology report: High-grade mullerian carcinoma. COMPARISON: No prior available. Correlation made with pelvic ultrasound 05/20/2025. TECHNIQUE: Multidetector volumetric imaging was performed of the abdomen and pelvis before and after the IV administration of 85 mL of Omnipaque 300 intravenous contrast. Sagittal and coronal reformatted images were obtained on the technologist's workstation. This CT examination was performed using dose optimization techniques as appropriate, variously including the following: *Automated exposure control *Adjustment of mA and/or kV according to patient size (this includes techniques or standardized protocols for targeted exams where dose is matched to indication/reason for exam; i.e. extremities or head) *Use of iterative reconstruction technique FINDINGS: LUNG BASES: The visualized lung bases are unremarkable. LIVER, GALLBLADDER, AND BILIARY TREE: The liver is normal in size, shape, and attenuation. No suspicious focal hepatic lesion or biliary ductal dilatation is present. Small foci of focal fatty infiltration noted abutting the falciform ligament and gallbladder fossa. The gallbladder is surgically absent. PANCREAS: Unremarkable SPLEEN: Unremarkable ADRENAL GLANDS: Unremarkable KIDNEYS AND URETERS: The kidneys are normal in size, shape, and attenuation. No hydronephrosis, hydroureter, or calculi seen. No perinephric stranding. BLADDER: Unremarkable GASTROINTESTINAL TRACT: There has been a prior gastric bypass. The proximal and distal anastomoses appear unremarkable. The small bowel is normal in caliber, course, and appearance. There has been a partial right colectomy with ileocolonic anastomosis in the region of the hepatic flexure. The anastomosis is unremarkable in appearance. Remainder of the colon and normal in course, caliber, and appearance without wall thickening or inflammation. No significant diverticular disease. No rectal abnormality is noted. PERITONEUM: There is no free air or ascites. ABDOMINAL WALL: No significant hernia is appreciated. LYMPH NODES: There is no abnormal lymphadenopathy present. VASCULAR: Mild to moderate calcification of the aorta and iliac arteries without aneurysm present. PELVIC VISCERA: Uterus demonstrates a 10 x 12 mm focus of enhancement in the right mid uterine segment, dorsum of the endometrial stripe, possibly the index lesion. There is prominence of the endometrium. There is no adnexal mass evident. No free pelvic fluid is present. OSSEOUS STRUCTURES: There is no lytic or blastic bone lesion. There are mild degenerative changes of the lumbar spine most notable at L4-S1. CT/CT abdomen pelvis wo/w IV con IMPRESSION: 1. There is no evidence of metastatic disease or abnormal lymphadenopathy within the abdomen and pelvis. 2. There has been a prior gastric bypass, and prior right partial colectomy. 3. Cholecystectomy. 4. There is a 10 x 12 mm focus of enhancement in the right mid uterine segment, dorsum of the endometrium, possibly index lesion. Electronically signed by: Tyler Molina MD 08/11/2025 03:53 PM EDT
--- OUTSIDE RECORDS SUMMARY | 2025-08-11 15:40 | XMS_ITS | Clinical Summary ---
Author Organization [facility] Address [address] [place] [address] Care Team Providers Care Tire Builder Heavy Service Name Role Phone System, Provider Not In [...] [facility] [employer] [place]) Care Teams Tire Builder Heavy Service Relationship Specialty Start Date End Date System, Provider Not In PCP - General 02/11/21
--- OUTSIDE RECORDS SUMMARY | 2025-08-11 15:40 | XMS_ITS | Clinical Summary ---
Author Organization [facility] Address [address] [place] [address] Care Team Providers Care Lens Shaper Grinder Name Role Phone Estefania Munoz MD Primary Care Provider [phone] Surgical History Surgery Date Site/Laterality Comments GASTRIC BYPASS 2009 PROCEDURE: HI GASTRIC RSTCV W/BYP W/SM INT RCNSTJ LIMIT [...] Recently Relevant to Health Maintenance Results * [facility] SCREENING DIGITAL (02/16/2021 2:14 PM EDT) Anatomical Region Laterality Modality Mammography 02/16/2021 9:47 AM EDT Narrative 02/16/2021 2:14 PM EDT [facility] Diagnostic Imaging Department [address] [place] [address] Patient: YANIRA LEHMAN Mercedes /Age/Sex: 1955 - 65 - F Unit#: [id number] [facility]Ordering Site: [facility] Ordering Physician: AMIE SALMERON MD [facility] Screening Digital - 02/16/21 - 1009 EXAM: [facility] Screening Digital EXAM DATE AND TIME: 02/16/2021 10:10 AM HISTORY: Family history of breast carcinoma in a nonspecified relative. Annual screening mammography COMPARISON: 11/01/2019 through 08/15/2016 TECHNIQUE: CC and MLO views of both breasts were obtained using full field digital mammography. Bilateral digital breast tomosynthesis was performed in the MLO projection. Computer aided detection with the [employer] 7.2-H was employed. TISSUE DENSITY: b. There [...] Routine screening mammogram BILATERAL in 1 year. 05639, 16577 3342F, 7025F Dictating Physician: AMIE BARTON MD Electronically Signed by: AMIE BARTON MD Dic Date/Time: 02/16/21 1411 Sign date/Time: 02/16/21 1414 Procedure Note Claudine Barton MD - 10/29/2022 [facility] Diagnostic Imaging Department [address] [place], [place] [id number] Patient: YANIRA LEHMAN Mercedes /Age/Sex: 1955 - 65 - F Unit#: [id number] Location/Status: [facility] Mnemonic/Ordering Site: [facility] Ordering Physician: AMIE SALMERON MD [facility] Screening Digital - 02/16/21 - 1009 EXAM: [facility] Screening Digital EXAM DATE AND TIME: 02/16/2021 10:10 AM HISTORY: Family history of breast carcinoma in a nonspecified relative. Annual screening mammography COMPARISON: 11/01/2019 through 08/15/2016 TECHNIQUE: CC and MLO views of both breasts were obtained using fullfield digital mammography. Bilateral digital breast tomosynthesis was performedin the MLO projection. Computer aided detection with the [employer] 7.2-Hwas employed. TISSUE DENSITY: b. There are [...] Routine screening mammogram BILATERAL in 1 year. [id number], 09697 3342F, 7025F Dictating Physician: AMIE BARTON MD Electronically Signed by: AMIE BARTON MD Dic Date/Time: 02/16/21 1411 Sign date/Time: 02/16/21 141 us Amie Salmeron MD IMG BI PROCEDURES Final Resul t from Last 3 Months or Most Recently Relevant to Health Maintenance Care Teams Lens Shaper Grinder Relationship Specialty Start Date End Date Estefania Munoz MD PCP - General Internal Medicine 02/02/18
--- OUTSIDE RECORDS SUMMARY | 2025-08-11 15:40 | XMS_ITS | Clinical Summary ---
Author Organization [facility] Address [address] [place] [address] Phone Care Team Providers Care Salesperson Women'S Dresses Name Role Phone Amie Salmeron MD Primary Care Provider [phone] Social History Tobacco Use Types Packs/Day Years [...] topic Medical Devices Not on file Insurance X BODY TOTAL CHOICE INDEMNITY X BODY TOTAL CHOICE INDEMNITY [employer] [facility] TOTAL CHOICE INDEMNITY X BODY TOTAL CHOICE INDEMNITY X BODY TOTAL CHOICE INDEMNITY [employer] [facility] TOTAL CHOICE INDEMNITY [facility] TOTAL CHOICE INDEMNITY [facility] TOTAL CHOICE INDEMNITY [facility] TOTAL CHOICE INDEMNITY Care Teams Salesperson Women'S Dresses Relationship Specialty Start Date End Date Amie Salmeron MD 1959 [facility] [place] [address] PCP - General Internal Medicine 06/25/21 Additional Source Comments The information contained in this document represents components of the legal health record. It is not the complete legal health record.[facility]
== END 2025-08-11 14:01 | disposition home or self-care (01) ==
LOC: HO.CT 14:00
PROVIDERS: PCP Internal Medicine; Visit Provider Obstetrics & Gynecology
DX: C54.1 Malignant neoplasm of endometrium (principal)
CPT/HCPCS: 74178

== ENCOUNTER → 2025-08-11 14:02 | Outpatient (BNV) | payer MEDICARE, OTHER, SELFPAY | PROVIDERS: PCP Internal Medicine; Visit Provider Radiology Diagnostic Radiology | DX: C54.1 Malignant neoplasm of endometrium (principal); Z98.84 Bariatric surgery status; Z90.49 Acquired absence of other specified parts of digestive tract | CPT/HCPCS: 74178 ==

== ENCOUNTER 2025-08-16 07:58 | Outpatient (AMB) | payer MEDICARE, OTHER, SELFPAY ==
--- NOTE | 2025-08-16 07:59 | A.OFFVIS_ITS ---
Intake Visit Reasons: colpo results Allergies No Known Allergies Allergy (Verified 08/08/25 09:07) HPI Comments Details: The patient is schedule telehealth visit for follow-up CT scan showed the following: IMPRESSION: 1. There is no evidence of metastatic disease or abnormal lymphadenopathy within the abdomen and pelvis. 2. There has been a prior gastric bypass, and prior right partial colectomy. 3. Cholecystectomy. 4. There is a 10 x 12 mm focus of enhancement in the right mid uterine segment, dorsum of the endometrium, possibly index lesion. Chest x-ray showed the following: IMPRESSION: No active pulmonary disease. CA 125 within normal Pap showed malignant cyst/HPV negative Pathology of colposcopy biopsy ECC showed the following: A. Endocervix, curettage: Superficial fragments of inflamed endocervical mucosa with focal squamous metaplasia; mucoinflammatory material; no atypia identified. B. Cervix, 1 o'clock, biopsy: Inflamed atrophic squamous and endocervical mucosa. C. Cervix, 4 o'clock, biopsy: Inflamed atrophic squamous and endocervical mucosa. D. Cervix, 6 o'clock, biopsy: Atrophic squamous mucosa; no endocervical epithelium identified. E. Cervix, 11 o'clock, biopsy: Atrophic squamous mucosa; no endocervical epithelium identified. 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 Brother Substance use disorder Brother No problems noted. Sister No problems noted. Son No problems noted. 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: No Hearing needs: No Vision needs: Yes Review of Systems Const All systems reviewed & are unremarkable except as noted in HPI and below Reports as per HPI and Reports no additional complaints GI Reports no additional complaints Reports no additional complaints Telehealth Telehealth Telehealth Platform: Telephone Location of provider rendering services: practice address Location of patient: address on file Patient Identification confirmed using: Name, : Yes Telehealth method: voice only Patient verbally consented to treatment: Yes Patient verbally consented to billing insurance company: Yes Patient informed of any privacy concerns related to visit: Yes Minutes spent on Phone/Video with Pt.: 3 Assessment & Plan Assessment & Plan (1) Endometrial ca: Comment: high grade mullerian cancer Code(s): C54.1 - Malignant neoplasm of endometrium Category: Medical Plan: The patient is aware of the appointment with Gyne Onc today Discussed with the patient the results of CT scan, chest x-ray and CA 125 (2) Abnormal Pap smear of cervix: Comment: Malignant cells present HPV negative Code(s): R87.619 - Unspecified abnormal cytological findings in specimens from cervix uteri Category: Medical Plan: Discussed with the patient the results of the cervical biopsy/ECC pathology. All questions answered, the patient verbalized understanding I spent a total of 20 minutes reviewing the chart, talking to the patient via video and documenting in the medical record. Coding Level of Care Code Tele Est Pt Level 3 (93526) Diagnoses Endometrial ca C54.1 Abnormal Pap smear of cervix R87.619
--- OUTSIDE RECORDS SUMMARY | 2025-08-16 08:09 | XMS_ITS | Clinical Summary ---
Author Organization [facility] Address [address] [place] [address] Care Team Providers Care Housekeeping Cleaner Name Role Phone Estefania Munoz MD Primary Care Provider [phone] Surgical History Surgery Date Site/Laterality Comments GASTRIC [...] Recently Relevant to Health Maintenance Results * [facility] SCREENING DIGITAL (02/16/2021 2:14 PM EDT) Anatomical Region Laterality Modality Mammography 02/16/2021 9:47 AM EDT Narrative 02/16/2021 2:14 PM EDT [facility] Diagnostic Imaging Department [address] [place] [address] Patient: YANIRA LEHMAN Mercedes /Age/Sex: 1955 - 65 - F Unit#: [id number] [facility]onic/Ordering Site: [facility] Ordering Physician: AMIE SALMERON MD [facility] Screening Digital - 02/16/21 - 1009 EXAM: [facility] Screening Digital EXAM DATE AND TIME: 02/16/2021 10:10 AM HISTORY: Family history of breast carcinoma in a nonspecified relative. Annual screening mammography COMPARISON: 11/01/2019 through 08/15/2016 TECHNIQUE: CC and MLO views of both breasts were obtained using full field digital mammography. Bilateral digital breast tomosynthesis was performed in the MLO projection. Computer aided detection with the [employer] 7.2-H was employed. TISSUE DENSITY: b. There [...] Routine screening mammogram BILATERAL in 1 year. [id number], 13979 3342F, 7025F Dictating Physician: AMIE BARTON MD Electronically Signed by: AMIE BARTON MD Dic Date/Time: 02/16/21 1411 Sign date/Time: 02/16/21 1414 Procedure Note Claudine Barton MD - 10/29/2022 [facility] Diagnostic Imaging Department [address] [place], [place] [id number] Patient: YANIRA LEHMAN Mercedes /Age/Sex: 1955 - 65 - F Unit#: [id number] [facility] Mnemonic/Ordering Site: [facility] Ordering Physician: AMIE SALMERON MD [facility] Screening Digital - 02/16/21 - 1009 EXAM: [facility] Screening Digital EXAM DATE AND TIME: 02/16/2021 10:10 AM HISTORY: Family history of breast carcinoma in a nonspecified relative. Annual screening mammography COMPARISON: 11/01/2019 through 08/15/2016 TECHNIQUE: CC and MLO views of both breasts were obtained using fullfield digital mammography. Bilateral digital breast tomosynthesis was performedin the MLO projection. Computer aided detection with the [employer] 7.2-Hwas employed. TISSUE DENSITY: b. There are [...] Routine screening mammogram BILATERAL in 1 year. 39448, 49914 3342F, 7025F Dictating Physician: AMIE BARTON MD Electronically Signed by: AMIE BARTON MD Dic Date/Time: 02/16/21 1411 Sign date/Time: 02/16/21 141 us Amie Salmeron MD IMG BI PROCEDURES Final Resul t from Last 3 Months or Most Recently Relevant to Health Maintenance Care Teams Housekeeping Cleaner Relationship Specialty Start Date End Date Estefania Munoz MD PCP - General Internal Medicine 02/02/18
== END 2025-08-16 09:03 | disposition home or self-care (01) ==
LOC: HO.HWS 07:58
PROVIDERS: PCP Internal Medicine; Visit Provider Obstetrics & Gynecology
DX: C54.1 Malignant neoplasm of endometrium (principal); R87.619 Unspecified abnormal cytological findings in specimens from cervix uteri
CPT/HCPCS: 99213

== ENCOUNTER 2025-09-28 14:20 | Outpatient (AMB) | payer MEDICARE, OTHER, SELFPAY ==
--- OUTSIDE RECORDS SUMMARY | 2023-01-21 08:15 | XMS_ITS | Continuity of Care Document ---
Author Organization [facility] Address [address] [phone] Phone Care Team Providers Care Usps Letter Carrier Name Role Phone Joby LEON, Rodney Unavailable Unavaila ble Allergies, Adverse Reactions, Alerts Substance Reaction Status Criticality No Known Allergies Active No Inform ation Procedures Procedure Date Plastics Consultation Plastics Consultation Advance Directives Directive Yes / No Effective Date File Name No Information Encounters Encounter Description Practice Location Reason(s) For Visit Diagnoses Date Provider Providers Copied on [facility], [address], [place], [place], [id number], tel:[phone] [facility] Encounter for cosmetic procedure Joby Stevens. [address], [id number], . tel:[phone] Referring Provider: Rodney Bishop, [address], [address]. tel:[phone] Family History Family Member Type Diagnosis Age At Onset No Information Payers Payer name Insurance type Covered libertarian ID Authoriza tion(s) No Information Social History Type Description Quantity Date Captured Comments Alcohol Use Details Caffeine Use Details Unknown Tobacco Use Status Smoking Status Former smoker Sex Female Gender Identity Female Chief Complaint And Reason For Visit No Information Reason For Referral Reason For Referral No Information History Of Present Illness Encounter Date Complaint History Of Prese nt Illness Not Listed Functional Status Date Functional Assessmen t No Information Instructions Date Instruction Additional Infor mation No Information Assessments Type Assessment Date assessment Encounter for cosmetic procedure Patient Care Teams Name Effective Dates (start - stop) Status Members No Information
--- OUTSIDE RECORDS SUMMARY | 2023-01-21 08:15 | XMS_ITS | Continuity of Care Document ---
Author Organization [facility] Address [address] [phone] Phone Care Team Providers Care Salesforce Consultant Name Role Phone Joby LEON, Rodney Unavailable Unavaila ble Allergies, Adverse Reactions, Alerts Substance Reaction Status Criticality No Known Allergies Active No Inform ation Procedures Procedure Date Plastics Consultation Plastics Consultation Advance Directives Directive Yes / No Effective Date File Name No Information Encounters Encounter Description Practice Location Reason(s) For Visit Diagnoses Date Provider Providers Copied on [facility], [address], [place], [place], [id number], tel:[phone] [facility] Encounter for cosmetic procedure Joby Stevens. [address], [id number], . tel:[phone] Referring Provider: Rodney Bishop, [address], [address]. tel:[phone] Family History Family Member Type Diagnosis Age At Onset No Information Payers Payer name Insurance type Covered green party ID Authoriza tion(s) No Information Social History [...]
--- OUTSIDE RECORDS SUMMARY | 2023-01-21 08:15 | XMS_ITS | Continuity of Care Document ---
Author Organization [facility] Address [address] [phone] Phone Care Team Providers Care Aircraft Engineer Name Role Phone Joby LEON, Rodney Unavailable Unavaila ble Allergies, Adverse Reactions, Alerts Substance Reaction Status Criticality No Known Allergies Active No Inform ation Procedures Procedure Date Plastics Consultation Plastics Consultation Advance Directives Directive Yes / No Effective Date File Name No Information Encounters Encounter Description Practice Location Reason(s) For Visit Diagnoses Date Provider Providers Copied on [facility], [address], [place], [place], [id number], tel:[phone] [facility] Encounter for cosmetic procedure Joby Stevens. [address], [id number], . tel:[phone] Referring Provider: Rodney Bishop, [address], [address]. tel:[phone] Family History Family Member Type Diagnosis Age At Onset No Information Payers Payer name Insurance type Covered constitution party ID Authoriza tion(s) No Information Social [...]
--- OUTSIDE RECORDS SUMMARY | 2023-01-21 08:15 | XMS_ITS | Continuity of Care Document ---
Author Organization [facility] Address [address] [phone] Phone Care Team Providers Care Candy Maker Helper Name Role Phone Joby LEON, Rodney Unavailable Unavaila ble Allergies, Adverse Reactions, Alerts Substance Reaction Status Criticality No Known Allergies Active No Inform ation Procedures Procedure Date Plastics Consultation Plastics Consultation Advance Directives Directive Yes / No Effective Date File Name No Information Encounters Encounter Description Practice Location Reason(s) For Visit Diagnoses Date Provider Providers Copied on [facility]counter [facility], [address], [place], [place], [id number], tel:[phone] [facility] Encounter for cosmetic procedure Joby Stevens. [address], [id number], . tel:[phone] Referring Provider: Rodney Bishop, [address], [address]. tel:[phone] Family History Family Member Type Diagnosis Age At Onset No Information Payers Payer name Insurance type Covered alliance party ID Authoriza tion(s) No Information Social [...]
[2025-09-28 14:23] VITALS: BP 110/68; PULSE 76; RESP 16; TEMP 36.7; O2SAT 97; BMI 25.5
--- NOTE | 2025-09-28 14:23 | A.OFFPC_ITS ---
Vital Signs 09/28/25 14:23 Height 5 ft 10 in Weight 178 lb BMI 25.5 BP 110/68 Blood Pressure Location Lt brachial Position Sitting Respiration 16 Pulse 76 Pulse Source Pulse Oximeter Temp 98.1 F Temp Source Oral Pulse Oximetry (%) 97 Oxygen Delivery Method Room Air Intake Visit Reasons: 6 month follow up Intake Note: Pt is here today for 6 month follow up visit. Allergies No Known Allergies Allergy (Verified 09/28/25 14:25) Medication List - Last Reconciled 09/28/25 by Amie Salmeron MD calcium carbonate (Calcium 600) 600 mg PO .twice weekly magnesium citrate 100 mg PO .twice a week mecobalamin (vitamin B12) 5,000 mcg PO .twice weekly metronidazole 500 mg PO BID sertraline 50 mg PO DAILY tirzepatide (Mounjaro) 12.5 mg (0.5 mL) subcut QWEEK Tobacco use date assessed: 09/28/25 Fall risk assessment: No Falls in past year Last assessed Fall Risk: 09/28/25 Dental Screening Dental Screen Date: 03/28/25 HPI 6 month follow up HPI Details Patient presents for the follow-up of type 2 diabetes and chronic anxiety stable on current medications. Patient was diagnosed with endometrial cancer high-grade Mullerian ca in May and underwent robotic assisted total hysterectomy in August at [facility]. Patient will be starting chemotherapy tomorrow but reports poor prognosis with life expectancy up to 2 years. Patient is adjusting well and is planning abroad traveling next year to [place] and [place]. [facility] Medical History (Updated 09/28/25 @ 15:39 by Amie Salmeron MD) Postmenopausal bleeding Endometrial ca Cataract, left eye PTSD (post-traumatic stress disorder) Knee injury Annual physical exam Normal Pap smear Osteopenia Dysplastic nevus of face History of mammogram Iron deficiency Vitamin B 12 deficiency Vitamin D deficiency Anemia DM type 2 (diabetes mellitus, type 2) Surgical History History of ankle surgery History of hemicolectomy History of colonoscopy H/O gastric bypass Family History Father Cancer Mother No problems noted. Brother Substance use disorder Brother No problems noted. Sister No problems noted. Son No problems noted. 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: No Hearing needs: No Vision needs: Yes Questionnaire Thrive Questionnaire Date Thrive assessed: 01/31/25 I am a: Patient What is your living situation today?: I have a steady place to live Within the past 12 months, did the food you bought not last and you didn't have the money to get more?: Never true Within the past 12 months, did you worry whether your food would run out before you got money to buy more?: Never true Do you have trouble paying for medicines?: I choose not to answer this question Do you have trouble getting transportation to medical appointments?: I choose not to answer this question Do you have trouble paying your heating and electricity bill?: I choose not to answer this question Do you have trouble taking care of your child, family member or friend?: No Do you have trouble with day-to-day activities such as bathing, preparing meals, shopping, managing finances, etc.?: I choose not to answer this question Are you currently unemployed and looking for a job?: I choose not to answer this question Are you interested in more education?: I choose not to answer this question Please select the resources that you would like help with: None Currently or been in a relationship where the following occur: I choose not to answer THRIVE Score: 0 VIDYA-7 AMB Questionnaire VIDYA-7 Date VIDYA - 7 assessed: 06/18/24 Not being able to stop or control worryin = Several days Source: Developed by Drs. Jose L Velazquez, Jewell Lassiter, Frank Batista and colleagues, with an educational hilary from [employer]. Review of Systems Const All systems reviewed & are unremarkable except as noted in HPI and below Eyes Reports no additional complaints ENT Reports no additional complaints Card Reports no additional complaints Resp Reports no additional complaints GI Reports no additional complaints Reports no additional complaints Physical exam (Primary Care) Vital Signs: Last Vital Signs Temp 98.1 F 09/28/25 14:23 Pulse 76 09/28/25 14:23 Resp 16 09/28/25 14:23 BP 110/68 09/28/25 14:23 Pulse Ox 97 09/28/25 14:23 Oxygen Delivery Method Room Air 09/28/25 14:23 BMI result Body Mass Index 25.5 Tobacco/Smoking Status: Tobacco use Status Tobacco use date assessed 09/28/25 09/28/25 14:29 Patient Tobacco Use Status Former Tobacco user 09/28/25 14:25 e-Cigarette/Vaping Use Never Used 09/28/25 14:25 Thrive Assessment: Date of Thrive Assessment Date Thrive assessed 01/31/25 09/28/25 14:25 Currently or been in a relationship where the following occur: I choose not to answer Const General: no acute distress HENMT Mouth: Normal oral and palatal mucosa present Resp Effort & Inspection: normal respiratory effort Auscultation: clear to auscultation bilaterally Cardio Rhythm: regular rhythm Heart sounds: S1 normal heart sound present and S2 normal heart sound present GI Inspection: Yes normal to inspection Palpation (GI): Soft to palpation Coding Level of Care Code Est Pt Level 4 (29768) Diagnoses DM type 2 (diabetes mellitus, type 2) E11.9 Endometrial ca C54.1 PTSD (post-traumatic stress disorder) F43.10 Assessment & Plan Assessment & Plan (1) DM type 2 (diabetes mellitus, type 2): Code(s): E11.9 - Type 2 diabetes mellitus without complications Category: Medical Plan: A1c is under 6. Continue Mounjaro ADA diet regular physical activity (2) Endometrial ca: Comment: high grade mullerian cancer dxd 05/2025, s/p total hysterectomy 08/2025 at [facility], will start chemo 09/2025 Code(s): C54.1 - Malignant neoplasm of endometrium Category: Medical Plan: Patient will be starting chemotherapy tomorrow, continue to follow-up with Oncology at [facility] (3) PTSD (post-traumatic stress disorder): Code(s): F43.10 - Post-traumatic stress disorder, unspecified Category: Medical Plan: Continue Zoloft Orders: Orders Complete Blood Count Auto Diff 6 Months E11.9 - Type 2 diabetes mellitus without complications, E78.5 - Hyperlipidemia, unspecified Hemoglobin A1c 6 Months E11.9 - Type 2 diabetes mellitus without complications, E78.5 - Hyperlipidemia, unspecified Comprehensive [place]. Panel Fast 6 Months E11.9 - Type 2 diabetes mellitus without complications, E78.5 - Hyperlipidemia, unspecified Lipid Panel 6 Months E11.9 - Type 2 diabetes mellitus without complications, E78.5 - Hyperlipidemia, unspecified
--- OUTSIDE RECORDS SUMMARY | 2025-09-29 02:46 | XMS_ITS ---
Author Organization [facility] Address [address] [place] [id number] Phone Care Team Providers Care Interactive Media Marketing Strategist Name Role Phone Amie Salmeron MD Primary Care Provider [phone] Active Problems Problem Noted Date Diagnosed Date Type 2 diabetes mellitus wit hout complication, without long-term current use of insulin 08/18/2025 Endometrial cancer 08/17/2025 Current Treatment and Therapy Plans CARBOPLATIN AUC5/ PACLITAXEL 175MG/M2/ PEMBROLIZUMAB 200MG X 6 CYCLES FOLLOWED BY PEMBROLIZUMAB 400MG Every 6 Weeks* Plan Start Date:09/29/2025 Plan Provider:Monica Kelsey MD Linked Problems Endometrial cancer Treatment Medications Current Day (Day 1 , Cycle 1 - Planned for 09/29/2025) Next Day (Day 1, Cycle 2 - Planned for 10/20/2025) CARBOplatin (PARAPLATIN)PACLitaxel (TAXOL)pembrolizumab (KEYTRUDA) CARBOplatin (PARAPLATIN) 636.5 mg in D5W 333.65 mL IVPBPACLitaxeL (TAXOL) 342 mg in sodium chloride 0.9% (PVC Free) 597 mL IVPBpembrolizumab (KEYTRUDA) 200 mg in sodium chloride 0.9% 68 mL IVPB CARBOplatin (PARAPLATIN) 636.5 mg in D5W 333.65 mL IVPBPACLitaxeL (TAXOL) 342 mg in sodium chloride 0.9% (PVC Free) 597 mL IVPBpembrolizumab (KEYTRUDA) 200 mg in sodium chloride 0.9% 68 mL IVPB Past Treatment and Therapy Plans No past plan information found.
--- OUTSIDE RECORDS SUMMARY | 2025-09-29 02:46 | XMS_ITS | Encounter Summary ---
Author Organization [facility] Address [address] [place] [address] Phone Care Team Providers Care Commanding Officer Homicide Squad Name Role Phone Amie Salmeron MD Primary Care Provider [phone] Encounter Details Date Type Department Care Team (Late st Contact Info) Description 09/24/2025 Orders Only Center for Gynecologic Oncology, [place] [facility] [employer] [facility], [facility] [place] [address] [place] [address], 10th [place] [address] Monica Kelsey MD [address] [place] [address] Luisa@[email or web address] Gynecologic cancer Social History Tobacco Use Types Packs/Day Years Used Date Smoking Tobacco: Former Cigarettes 2 10 Q uit: 11/10/1992 Smokeless Tobacco: Never Alcohol Use Standard Drinks/Week Comments Yes 10 (1 standard drink = 0.6 oz pu re alcohol) Child or Family Care Answer Date Record ed Do you have problems with on e of the following making it difficult for you to work, study, or receive health care? No 09/21/2025 Education Answer Date Recorded Are you interested in more education? Not on randi e 03/15/2023 Are you concerned about learning? Not on file 03/15/2023 No 03/15/2023 No 03/15/2023 Food Answer Date Recorded Within the past 6 months we worried whether our food would run out before we got money to buy more. Never True 09/21/2025 Within the past 6 months the food we bought just didn't last and we didn't have enough money to get more. Never True Residential Stability Answer Date Recor ded What is your housing situation today? I have boni thomas 09/21/2025 How many times have you move d in the past 12 months? Zero (I did not move) 09/21/2025 Paying for Meds Answer Date Recorded Do you have trouble paying for medicines? No 09/21/2025 Paying Utility Bills Answer Date Record ed Do you have trouble paying your heating or elect ricity bill? No 09/21/2025 Transportation Answer Date Recorded Has the lack of transportati on kept you from medical appointments or from getting medications? No 09/21/2025 Digital Access Answer Date Recorded No 04/06/2023 No 04/06/2023 Reliable internet access at home? Not on file 04/06/2023 Device with a working camera? Not on file Intimate Partner Violence Answer Date R ecorded Are you denied basic needs s uch as food, clothing, or medical care? Deferred 08/31/2025 In the past 12 months have y ou been in a relationship with a person who hurts, threatens, or tries to control you? Deferred 08/31/2025 Are you denied basic needs s uch as food, clothing, or medical care? Deferred 08/31/2025 In the past 12 months have y ou been in a relationship with a person who hurts, threatens, or tries to control you? Deferred 08/31/2025 Comments No Sex and Gender Information Value Date Recorded Sex Assigned at Not on file Legal Sex Female 5:35 PM EST Gender Identity Not on file Sexual Orientation Not on file documented as of this encounter Plan of Treatment Upcoming Encounters Date Type Department Care Team (Late st Contact Info) Description 09/29/2025 8:50 AM EST [facility] [place] [facility] [place] [address] [address] Monica Kelsey MD [address] [place] [address] Luisa@[email or web address] 09/29/2025 9:30 AM EST Office Visit Center for Gynecologic Oncology, [facility], [facility] at [address] [address] Therese Mayberry NP [address] [place] [address] [email or web address] Monica Kelsey MD [address] [place] [address] Luisa@[facility] 09/29/2025 10:30 AM EST Infusion Infusion Therapy Services [facility] at [address] [address] Monica Kelsey MD [address] [place] [phone] Luisa@[facility] Lydia Weaver, BONI [address] [place] [phone] MAGALI@[facility] 09/29/2025 10:30 AM EST Evaluation Infusion Therapy Services [facility] at [address] [address] Monica Kelsey MD [address] [place] [address] Luisa@[facility] 10/04/2025 11:00 AM EST Appointment Department of Radiation Oncology [address] [place] [address] Toño Soliz MD [address] [place] [address] [email or web address] u 03/30/2026 8:40 AM EDT Office Visit [facility] Center for Gynecology Oncology [address] [facility], 9th Floor, [address] [place] [address] Jamie Angulo MD [address] [facility] Obstetrics and Gynecology ServiceYAW [address]E [place] [address] Amanda@[email or web address] documented as of this encounter Procedures Procedure Name Priority Date/Time Associated Diagnosis Comments OUTSIDE PATHOLOGY REVIEW/CONSULT Routine 09/24/2025 8:55 AM EST Gynecologic cancer TISSUE EXAM Routine 09/24/2025 8:55 AM EST Gynecologic cancer documented in this encounter Results * Outside Pathology Review/Consult (09/24/2025 8:55 AM EST) Consult Auto Resulting Yes 09/24/2025 9:05 AM EST [facility] Consult 09/24/2025 8:55 AM EST 09/24/2025 8:56 AM EST us Monica Kelsey MD LAB PATHOLOGY ORDERABLES Final R esult [facility] [address] [place] [address] * Tissue Exam (09/24/2025 8:55 AM EST) Final Pathologic Diagnosis A. ENDOMETRIUM; ENDOMETRIUM, POLYPECTOMY ([id number]; 07/20/25): - HIGH GRADE ENDOMETRIAL CARCINOMA, favor DEDIFFERENTIATED CARCINOMA, see note. Immunohistochemistry performed at the outside institution and reviewed at [facility] demonstrates the following staining profile in glandular component: Positive: p16 (patchy), MD (moderate, 70%), ER (strong, 90%), pancytokeratin, PAX8 Negative: CD45, synaptophysin, chromogranin PMS2: Loss of nuclear expression MLH1, MSH2, MSH6: Intact nuclear expression p53: subclonal overexpression (mutant), in areas with high grade cytologic atypia Immunohistochemistry performed at the outside institution and reviewed at [facility] demonstrates the following staining profile in the undifferentiated component: Positive: p16 (diffuse), synaptophysin, chromogranin (patchy), PAX8 (weak) Negative: CD45, MD, ER, pancytokeratin PMS2: Loss of nuclear expression MLH1, MSH2, MSH6: intact nuclear expression p53: wild-type Per report, immunohistochemistry performed at the outside institution demonstrated retained nuclear expression of SMARCB1 and SMARCA4. B. ENDOMETRIUM; CURETTAGE ([id number]; 07/20/25 ): - HIGH GRADE ENDOMETRIAL CARCINOMA, favor DEDIFFERENTIATED CARCINOMA, see note. NOTE: Sections show a biphasic malignant neoplasm. There is a solid component characterized by discohesive epithelioid cells with a high nuclear-cytoplasmic ratio, brisk mitotic activity, and areas of necrosis. Additionally, there is a glandular component, predominantly composed of low-grade endometrioid carcinoma. There are small foci where the glandular component shows marked cytologic atypia resembling serous carcinoma. Of note, expression of neuroendocrine markers can be seen in high grade endometrial carcinomas, and this expression alone is not diagnostic of a neuroendocrine carcinoma. Overall, the morphologic and immunophenotypic findings are most consistent with a dedifferentiated carcinoma. The subclonal mutant p53 staining pattern raises the possibility of a POLE ultramutated endometrial carcinoma, and molecular testing should be performed if clinically indicated. In most tumors with isolated loss of PMS2 staining, the defect is caused by a germline mutation in the PMS2 gene, usually in the setting of a family history of colorectal, endometrial, gastric, or other cancers (Cabrera syndrome). Genetic counseling is recommended. 5 1:06 PM EST [facility] at 1306 EST Additional Pathologists Geovany Garcia MBBS - Pathology Fellow 5 1:06 PM EST [facility] Clinical History Gynecologic Cancer 5 1:06 PM EST [facility] Materials Received A. Endometrium; ENDOMETRIUM, POLYPECTOMY 07/20/25 [id number] - 09/24/2025 Blocks: 0 Stained Slides: 25 Number of Unstained Slides: 0 B. Endometrium; CURETTAGE 07/20/[id number] - 09/24/2025 Blocks: 0 Stained Slides: 13 Number of Unstained Slides: 0 Stained Slides Received: A1-1 A1 A1-2 A1 A1-3 A2 A1-4 A2 A1-5 A3 A1-6 A3 A1-7 A3 A1-8 A4 A1-9 A4 A1-10 A5 A1-11 A5 A1-12 -13 CD45 A1-14 SYNAP A1-15 CHROM A1-16 MD A1-17 ER A1-18 PAYTON CK A1-19 PAX8 A1-20 MSH2 A1-21 PMS2 A1-22 MLH1 A1-23 MSH2 A1-24 -25 MSH6 B1-1 B1 B1-2 B1 B1-3 B2 B1-4 B2 B1-5 CD45 B1-6 PAYTON CK B1-7 CHROM B1-8 ER B1-9 PAX8 B1-10 PMS2 B1-11 MD B1-12 P16 B1-13 SYNAP 5 1:06 PM EST [facility] Result Priority Level Routine 5 1:06 PM EST [facility] Disclaimer By their signature above, the pathologist listed as making the Final Diagnosis certifies that they have personally reviewed the case and confirmed the diagnosis. All slides and stains were of sufficient quality to establish the diagnosis, unless otherwise stated. Due to loss of elastic tension and/or tissue shrinkage in formalin, the clinical sizes of tissue specimens may be larger than those provided in this report. 5 1:06 PM EST [facility] Consult (Endometrium) 09/24/2025 8:55 AM EST 09/24/2025 8:56 AM EST Consult (Endometrium) 09/24/2025 8:55 AM EST 09/27/2025 12:10 PM EST us Monica Kelsey MD LAB PATHOLOGY ORDERABLES Final R esult [facility] documented in this encounter Visit Diagnoses Diagnosis Gynecologic cancer documented in this encounter Care Teams Commanding Officer Homicide Squad Relationship Specialty Start Date End Date Amie Salmeron MD [address] [place] [address] PCP - General Internal Medicine 06/25/21 documented as of this encounter Additional Source Comments The information contained in this document represents components of the legal health record. It is not the complete legal health record.[facility]
--- OUTSIDE RECORDS SUMMARY | 2025-09-29 02:46 | XMS_ITS | Encounter Summary ---
Author Organization [facility] Address [address] [place] [address] Phone Care Team Providers Care Coal Inspector Name Role Phone Amie Salmeron MD Primary Care Provider [phone] Encounter Details Date Type Department Care Team (Late st Contact Info) Description 09/28/2025 Orders Only Center for Gynecologic Oncology, [place] Jose [place] [facility], [facility] [facility] [place] [address] [place] [address], 10th [place] [address] Monica Kelsey MD [address] [place] [address] [email or web address] Gynecologic cancer Social History Tobacco Use Types [...] 8:50 AM EST Blood Draw [facility] Services, [facility] [place] [facility] [place] [address] [address] Monica Kelsey MD [address] [place] [address] Luisa@[facility] 09/29/2025 9:30 AM EST Office Visit Center for Gynecologic Oncology, [facility], [facility] at [address] [address] Therese Mayberry NP [address] [place] [address] [email or web address] Monica Kelsey MD [address] [place] [phone] Luisa@[facility] 09/29/2025 10:30 AM EST Infusion Infusion Therapy Services [facility] at [address] [address] Monica Kelsey MD [address] [place] [phone] Luisa@[facility] Lydia Weaver, BONI [address] [place] [phone] MAGALI@[facility] 09/29/2025 10:30 AM EST Evaluation Infusion Therapy Services [facility] at [address] [address] Monica Kelsey MD [address] [place] [phone] Luisa@[facility] 10/04/2025 11:00 AM EST Appointment Department of Radiation Oncology [address] [place] [address] Toño Soliz MD [address] [place] [phone] [email or web address] 03/30/2026 8:40 AM EDT Office Visit [facility] Center for Gynecology Oncology [address] [facility], 9th Floor, [address] [place] [address] Jamie Angulo MD [address] [facility] Obstetrics and Gynecology ServiceYAW [address]E [place] [address] [email or web address] Pending Results Name Type Priority Associated Diagnoses Date /Time Tissue Exam Pathology and Cytology Routine Gynecologic cancer 09/28/2025 2:26 PM EST documented as of this encounter Procedures Procedure Name Priority Date/Time Associated Diagnosis Comments OUTSIDE PATHOLOGY REVIEW/CONSULT Routine 09/28/2025 2:26 PM EST Gynecologic cancer documented in this encounter Results * Outside Pathology Review/Consult (09/28/2025 2:26 PM EST) Consult Auto Resulting Yes 09/28/2025 2:35 PM EST [facility] Consult 09/28/2025 2:26 PM EST 09/28/2025 2:28 PM EST us Monica Kelsey MD LAB PATHOLOGY ORDERABLES Final R esult [facility] [address] [place] [address] documented in this encounter Visit Diagnoses Diagnosis Gynecologic cancer documented in this encounter Care Teams Coal Inspector Relationship Specialty Start Date End Date Amie Salmeron MD [address] [place] [address] PCP - General Internal Medicine 06/25/21 documented as of this encounter Additional Source Comments The information contained in this document represents components of the legal health record. It is not the complete legal health record.[facility]
--- OUTSIDE RECORDS SUMMARY | 2025-09-29 02:46 | XMS_ITS | Encounter Summary ---
Author Organization [facility] Address [address] [place] [address] Phone Care Team Providers Care Salicylic Acid Blender Name Role Phone Amie Salmeron MD Primary Care Provider [phone] Encounter Details Date Type Department Care Team (Late st Contact Info) Description 09/27/2025 Orders Only Center for Gynecologic Oncology, [place] Jose [place] [facility], [facility] [facility] [place] [address] [place] [address], 10th [place] [address] Monica Kelsey MD [address] [place] [address] Luisa@[email or web address] [place] Social History Tobacco Use Types Packs/Day Years [...] 8:50 AM EST Blood Draw Laboratory Services, [facility] [place] [facility] [place] [address] [address] Monica Kelsey MD [address] [place] [address] Luisa@[email or web address] 09/29/2025 9:30 AM EST Office Visit Center for Gynecologic Oncology, [facility], [facility] at [address] [address] Therese Mayberry NP [address] [place] [address] [email or web address] Monica Kelsey MD [address] [place] [phone] Luisa@[facility] 09/29/2025 10:30 AM EST Infusion Infusion Therapy Services [facility] at [address] [address] Monica Kelsey MD [address] [place] [phone] Luisa@[facility] Lydia Weaver, BONI [address] [place] [phone] MAGALI@[facility] 09/29/2025 10:30 AM EST Evaluation Infusion Therapy Services [facility] at [address] [address] Monica Kelsey MD [address] [place] [phone] Luisa@[facility] 10/04/2025 11:00 AM EST Appointment Department of Radiation Oncology [address] [place] [address] Toño Soliz MD [address] [place] [phone] [email or web address] 03/30/2026 8:40 AM EDT Office Visit [facility] Center for Gynecology Oncology [address] [facility], 9th Floor, [address] [place] [address] Jamie Angulo MD [address] [facility] Obstetrics and Gynecology ServiceYAW 9E [place] [address] Amanda@[email or web address] documented as of this encounter Visit Diagnoses Not on filedocumented in this encounter Care Teams Salicylic Acid Blender Relationship Specialty Start Date End Date Amie Salmeron MD [address] [place] [address] PCP - General Internal Medicine 06/25/21 documented as of this encounter Additional Source Comments The information contained in this document represents components of the legal health record. It is not the complete legal health record.[facility]
--- OUTSIDE RECORDS SUMMARY | 2025-09-29 02:46 | XMS_ITS | Clinical Summary ---
Author Organization [facility] Address [address] [place] [address] Care Team Providers Care Tile Designer Name Role Phone System, Provider Not In [...] d or Tdap) 02/11/2031 02/11/2021 RSV Vaccine 50 years and old er and Patients (1 - 1-dose 75+ series) 2032 Hepatitis B Vaccines Aged Out No long er eligible based on patient's age to complete this topic Insurance [facility] (AUTO/LIABILITY) Care Teams Tile Designer Relationship Specialty Start Date End Date System, Provider Not In PCP - General 02/11/21
--- OUTSIDE RECORDS SUMMARY | 2025-09-29 02:46 | XMS_ITS | Encounter Summary ---
Author Organization [facility] Address [address] [place] [address] Phone Care Team Providers Care Binder Folder Operator Name Role Phone Amie Salmeron MD Primary Care Provider [phone] Encounter Details Date Type Department Care Team (Late st Contact Info) Description 08/31/2025 Procedure Pass [facility] PERIOPERATIVE DEPT [address] [place] [address] Social History Tobacco Use Types Packs/Day Years Used Date Smoking Tobacco: Former Cigarettes 2 10 Q uit: 11/10/1992 Smokeless Tobacco: Never Alcohol Use Standard Drinks/Week Comments Yes 10 (1 standard drink = 0.6 oz pu re alcohol) Education Answer Date Recorded Are you interested [...] 8:50 AM EST Blood Draw Laboratory Services, [facility] at [address] [address] Monica Kelsey MD [address] [place] [phone] Luisa@[facility] 09/29/2025 9:30 AM EST Office Visit Center for Gynecologic Oncology, [place] [facility], [facility] at [address] [address] Therese Mayberry NP [address] [place] [phone] [email or web address] Monica Kelsey MD [address] [place] [phone] Luisa@[facility] 09/29/2025 10:30 AM EST Infusion Infusion Therapy Services [place], [facility] at [address] [address] Monica Kelsey MD [address] [place] [phone] Luisa@[facility] Lydia Weaver RN [address] [place] [phone] [email or web address] 09/29/2025 10:30 AM EST Evaluation Infusion Therapy Services [facility] [place] [facility] [place] [address] [facility] 4th [place] [address] Monica Kelsey MD [address] [place] [phone] Luisa@[facility] 10/04/2025 11:00 AM EST Appointment Department of Radiation Oncology [address] [place] [address] Toño Soliz MD [address] [place] [phone] [email or web address] 03/30/2026 8:40 AM EDT Office Visit [facility] Center for Gynecology Oncology [address] [facility], 9th Floor, [address] [place] [address] Jamie Angulo MD [address] [facility] Obstetrics and Gynecology ServiceYAW [address], [place] [address] Amanda@[email or web address] documented as of this encounter Visit Diagnoses Not on filedocumented in this encounter Care Teams Binder Folder Operator Relationship Specialty Start Date End Date Amie Salmeron MD [facility] [place] [address] PCP - General Internal Medicine 06/25/21 documented as of this encounter Additional Source Comments The information contained in this document represents components of the legal health record. It is not the complete legal health record.[facility]
--- OUTSIDE RECORDS SUMMARY | 2025-09-29 02:46 | XMS_ITS | Clinical Summary ---
Author Organization [facility] Address [address] [place] [phone] Phone Care Team Providers Care Training Program Assistant Name Role Phone Amie Salmeron MD Primary Care Provider [phone] Allergies No known active allergies Medications sertraline (ZOLOFT) 50 MG tablet Take 50 mg by mouth daily. 08/17/20 25 Active MOUNJARO 12.5 mg/0.5 mL PnIj subcutaneous pen Inject 12.5 mg under the skin once a week. 06/15/20 25 Active prochlorperazine (COMPAZINE) 10 MG tablet Take 1 tablet (10 mg total) by mouth every 6 (six) hours as needed (nausea). 30 tablet 1 09/27/20 25 Active ondansetron (ZOFRAN) 8 MG tablet Take 1 tablet (8 mg total) by mouth every 8 (eight) hours as needed for nausea. Do not take for 72 hours after chemotherapy administration 30 tablet 1 09/27/20 25 Active acetaminophen (TYLENOL) 500 mg capsule Take 2 capsules (1,000 mg total) by mouth every 8 (eight) hours as needed for fever. 90 capsule 08/31/20 025 Discontin ued(Error ) oxyCODONE 5 MG immediate release tablet Take 1 tablet (5 mg total) by mouth every 4 (four) hours as needed for pain (specific location in comments). Partial fill ok 7 tablet 08/31/20 025 Discontin ued(Error ) senna-docusate (PERICOLACE) 8.6-50 mg Take 1 tablet by mouth daily. 30 tablet 08/31/20 025 Discontin ued(Error ) polyethylene glycol (MIRALAX) 17 gram packet Take 17 g by mouth daily. 30 packet 08/31/20 25 025 Discontin ued(Error ) simethicone (MYLICON) 80 mg chewable tablet Take 1 tablet (80 mg total) by mouth every 6 (six) hours as needed (gas pain). 30 tablet 08/31/20 025 Discontin ued(Error ) Active Problems Problem Noted Date Diagnosed Date Type 2 diabetes mellitus wit hout complication, without long-term current use of insulin 08/18/2025 Endometrial cancer 08/17/2025 Encounters Date Type Department Care Team Description 09/28/2025 Orders Only [facility], [facility], [address] [place] [address] Monica Kelsey MD Gynecologic cancer 09/27/2025 Orders Only [facility], [facility], [facility] [address], [address] [place] [address] Monica Kelsey MD 09/27/2025 Orders Only [facility], [facility], [facility] [address], [address] [place] [address] Therese Mayberry NP 09/24/2025 Orders Only [facility], [facility]ancers, [facility] [address] [place] [address] Monica Kelsey MD Gynecologic cancer 09/22/2025 2:00 PM EST Office Visit [facility] Center for Gynecology Oncology [address], 9th Floor, [address] [place] [address] Jamie Angulo MD Endometrial cancer (Primary Dx); Type 2 diabetes mellitus without complication, without long-term current use of insulin 09/22/2025 11:00 AM EST Infusion Infusion Therapy Services [facility] at [address] [address] Monica Kelsey MD Waber, Maressa Lynn, RN 09/22/2025 9:30 AM EST Office Visit [facility], [facility], [facility] at [address] [address] Monica Kelsey MD Endometrial cancer (Primary Dx); Endometrial carcinoma 09/22/2025 Orders Only [facility], [facility], [address], [address] [place] [address] Sara Preciado, BONI 09/22/2025 Orders Only [facility], [facility] Women[facility]ancers, [facility] at [address] [address] Monica Kelsey MD Endometrial cancer (Primary Dx) 09/19/2025 Orders Only [facility], [facility] [address], [address] [place] [address] Monica Kelsey MD Gynecologic cancer (Primary Dx) 09/14/2025 Documentation [facility] VIRTUAL DEPARTMENT [address] [place] [phone] Mary Cantu MD 09/02/2025 Telephone [facility] Center for Gynecology Oncology [address], 9th Floor, [address] [place] [address] Fabi Li RN 09/01/2025 8:36 PM EDT - 09/02/2025 4:07 AM EDT Emergency [facility] Emergency Dept [address] [place] [phone] Arielle Gonzalez MD Discharge Disposition: Home or Self Care 08/31/2025 1:19 PM EDT Anesthesia Event [facility] PERIOPERATIVE DEPT [address] [place] [phone] Kofi Alves MD Trindade, Caitlin Margaret, RN 08/31/2025 12:39 PM EDT - 08/31/2025 3:51 PM EDT Surgery [facility] PERIOPERATIVE DEPT [address] [place] [phone] Jamie Angulo MD 1. TOTAL ROBOTIC HYSTERECTOMY/BSO 2. BILATERAL IDENTIFICATION OF SENTINEL NODES WITH ICG DYE 3. LEFT AORTIC SENTINEL LYMPH NODE BIOPSY 4. RIGHT PELVIC SENTINEL LYMPH NODE RESECTION 5. RIGHT AORTIC LYMPH NODE DISSECTION 6. ROBOTIC PARTIAL OMENTECTOMY 08/31/2025 10:47 AM EDT - 09/01/2025 7:53 PM EDT Hospital Encounter [facility] PERIOPERATIVE DEPT [address] [place] [phone] Jamie Angulo MD Discharge Disposition: Left Against Medical Advice 08/31/2025 Procedure Pass [facility] PERIOPERATIVE DEPT [address] [place] [phone] 08/29/2025 7:47 AM EDT - 08/29/2025 11:59 PM EDT Hospital Encounter [facility] PATHOLOGY VIRTUAL DEPARTMENT [address] [place] [phone] Discharge Disposition: Home or Self Care 08/29/2025 Telephone [facility] Center for Gynecology Oncology [address] [place] [address], 9th Floor, [address] [place] [address] Jamie Angulo MD 08/29/2025 Orders Only [facility] PATHOLOGY CYTOPATHOLOGY VIRTUAL DEPARTMENT [address] [place] [address] Jamie Angulo MD 08/26/2025 5:00 PM EDT Pre-Admission Testing [facility] Pre-Procedure Evaluation Department Please See [place] [phone] Sriram Bhatia MD 08/19/2025 Documentation [facility] Center for Gynecology Oncology [address] [place] [address], 9th Floor, [address] [place] [address] Jamie Angulo MD 08/18/2025 10:00 AM EDT Infusion [facility] Center for Gynecology Oncology [address] [place] [address], 9th Floor, [address] [place] [address] Jamie Angulo MD DiTavi, Elizabeth, RN 08/18/2025 10:00 AM EDT Office Visit [facility] Center for Gynecology Oncology [address] [place] [address], 9th Floor, [address] [place] [address] Jamie Angulo MD Endometrial cancer (Primary Dx); Type 2 diabetes mellitus without complication, without long-term current use of insulin 08/18/2025 Orders Only [facility] Center for Gynecology Oncology [address] [place] [address], 9th Floor, [address] [place] [phone] Jemima Majano RN Endometrial cancer (Primary Dx) 08/17/2025 Ancillary Orders [facility] [address] [place] [address] Jamie Angulo MD 08/17/2025 Orders Only [facility] Center for Gynecology Oncology [address] [place] [address], 9th Floor, [address] [place] [address] Jamie Angulo MD Endometrial cancer (Primary Dx) 08/11/2025 - 08/11/2025 11:59 PM EDT Hospital Encounter [facility] [address] [place] [address] Jamie Angulo MD Discharge Disposition: Home or Self Care from Last 3 Months Family History Medical History Relation Comments Breast cancer Paternal Grandmother Relation Status Comments Paternal Grandmother Social History Tobacco Use Types [...] your housing situation today? I have boni sing 09/21/2025 How many times have you move [...] Sign Reading Time Taken Comments Blood Pressure 118/78 09/22/2025 1:47 PM EST Pulse 83 09/22/2025 1:47 PM EST Temperature 36.7 C (98.1 F) 09/22/2025 1:47 PM EST Respiratory Rate 16 09/22/2025 1:47 PM EST Oxygen Saturation 97% 09/22/2025 1:47 PM EST Inhaled Oxygen Concentration - - Weight 81.6 kg (179 lb 12.8 oz) 09/22/2025 1:47 PM EST Height 177.8 cm (5' 10 ) 08/31/2025 11: 42 AM EDT Body Mass Index 25.8 08/31/2025 11:42 AM EDT Plan of Treatment Upcoming Encounters Date Type Department Care Team (Late st Contact Info) Description 09/29/2025 8:50 AM EST Blood Draw Laboratory Services, [facility] at [address] [address] Monica Kelsey MD [address] [place] [phone] [email or web address] 09/29/2025 9:30 AM EST Office Visit [facility], [facility], [facility] at [address] [address] Therese Mayberry NP [address] [place] [phone] [email or web address] Monica Kelsey MD [address] [place] [phone] [email or web address] 09/29/2025 10:30 AM EST Infusion Infusion Therapy Services [place], [facility] at [address] [address] Monica Kelsey MD [address] [place] [phone] [email or web address] Lydia Weaver, BONI [address] [place] [address] [email or web address] 09/29/2025 10:30 AM EST Evaluation Infusion Therapy Services [place], [facility] [place] [facility] [place] [address] [facility] 4th [place] [address] Monica Kelsey MD [address] [place] [phone] [email or web address] 10/04/2025 11:00 AM EST Appointment Department of Radiation Oncology [address] [place] [address] Toño Soliz MD [address] [place] [phone] [email or web address] 03/30/2026 8:40 AM EDT Office Visit [facility] Center for Gynecology Oncology [address], 9th Floor, [address] [place] [address] Jamie Angulo MD [address] [facility] Obstetrics and Gynecology ServiceYAW [address] [place] [address] [email or web address] Health Maintenance Due Date Last Done Comments DEPRESSION SCREENING 1969 HEPATITIS C SCREENING 1975 LIPID PANEL 1975 MAMMOGRAM 1997 COLOGUARD 2002 COLONOSCOPY 2002 COLORECTAL CANCER SCREENING 2002 FIT TEST 2002 FOBT 2002 SIGMOIDOSCOPY 2002 VIRTUAL COLONOSCOPY 2002 OSTEOPOROSIS SCREENING INITIAL (ONE-TIME) 2022 INFLUENZA VACCINE (#1) 2025 4, 12/24/2023, 09/18/2020, Additional history exists COVID-19 VACCINE ( season) 2025 04/30/2025, 08/27/2024, 12/24/2023, Additional history exists DIABETIC EYE EXAM 08/18/2025 URINE MICROALBUMIN/CREATININE RATIO 08/18/2025 HEMOGLOBIN A1C 02/16/2026 08/18/2025 BLOOD PRESSURE 03/22/2026 09/22/2025 Adult Td,Tdap Booster 04/30/2035 04/30/2025 , 02/11/2021, 05/19/2019, Additional history exists RSV VACCINE Completed 12/24/2023, 08/22/2023 PNEUMOCOCCAL VACCINES (50+ years) Completed 03/28/2025, 04/07/2009 ZOSTER VACCINES Completed 04/30/2025, 08/22/2023 SMOKING STATUS SCREENING (Once After 26 Yrs) Completed 08/26/2025 HEPATITIS A VACCINES Aged Out No long [...] this topic Medical Devices Not on file Procedures Procedure Name Priority Date/Time Associated Diagnosis Comments OUTSIDE PATHOLOGY REVIEW/CONSULT Routine 09/28/2025 2:26 PM EST Gynecologic cancer OUTSIDE PATHOLOGY REVIEW/CONSULT Routine 09/24/2025 8:55 AM EST Gynecologic cancer TISSUE EXAM Routine 09/24/2025 8:55 AM EST Gynecologic cancer XR CHEST PA AND LATERAL 2 VIEWS Routine 09/01/2025 10:16 PM EDT XR SHOULDER 2 VIEWS (LEFT) Routine 09/01/2025 10:16 PM EDT LFTS (HEPATIC PANEL) STAT 09/01/2025 9:18 PM EDT TROPONIN STAT 09/01/2025 9:18 PM EDT MAGNESIUM STAT 09/01/2025 9:18 PM EDT BASIC METABOLIC PANEL (BMP) STAT 09/01/2025 9:18 PM EDT CBC AND DIFFERENTIAL STAT 09/01/2025 9:18 PM EDT ECG 12-LEAD STAT 09/01/2025 6:22 PM EDT XR SHOULDER 1 VIEW (RIGHT) Required for discharge 09/01/2025 3:54 PM EDT POCT GLUCOSE Routine 09/01/2025 11:41 AM EDT POCT GLUCOSE Routine 09/01/2025 7:45 AM EDT CBC Routine 09/01/2025 4:05 AM EDT POCT GLUCOSE Routine 08/31/2025 8:16 PM EDT POCT GLUCOSE Routine 08/31/2025 5:35 PM EDT POCT GLUCOSE Routine 08/31/2025 4:32 PM EDT ANATOMIC PATHOLOGY Routine 08/31/2025 2: 46 PM EDT AIRWAY PLACEMENT Routine 08/31/2025 1:28 PM EDT MN LAP,RMV ADNEXAL STRUCTURE 08/31/2025 1:18 PM EDT Endometrial cancer ABO AND RH Routine 08/31/2025 1:08 PM EDT HC BLOOD TYPING SEROLOGIC ABO STAT 08/31/2025 1:08 PM EDT POCT GLUCOSE Routine 08/31/2025 11:56 AM EDT OUTSIDE PATHOLOGY REVIEW Routine 08/29/2025 12:00 AM EDT HEMOGLOBIN A1C Routine 08/18/2025 11:25 AM EDT Endometrial cancer PTT Routine 08/18/2025 11:25 AM EDT Endometrial cancer PT-INR Routine 08/18/2025 11:25 AM EDT Endometrial cancer COMPREHENSIVE METABOLIC PANEL (CMP) Routine 08/18/2025 11:25 AM EDT Endometrial cancer CBC AND DIFFERENTIAL Routine 08/18/2025 11:25 AM EDT Endometrial cancer ECG 12-LEAD Routine 08/18/2025 11:19 AM EDT End[address] cancer CT ABDOMEN/PELVIS OUTSIDE WITH INTERPRETATION OR CONSULT Routine 08/11/2025 12:00 AM EDT from Last 3 Months Results * Outside Pathology Review/Consult (09/28/2025 2:26 PM EST) Only the most recent of2 resultswithin the time period is included. Consult Auto Resulting Yes 09/28/2025 2:35 PM EST [facility] Consult 09/28/2025 2:26 PM EST 09/28/2025 2:28 PM EST us Monica Kelsey MD LAB PATHOLOGY ORDERABLES Final R esult [facility] [address] [place] [phone] * Tissue Exam (09/24/2025 8:55 AM EST) Final Pathologic Diagnosis A. ENDOMETRIUM; ENDOMETRIUM, POLYPECTOMY ([id number]; 07/20/25): - HIGH GRADE ENDOMETRIAL CARCINOMA, favor DEDIFFERENTIATED CARCINOMA, see note. Immunohistochemistry performed at the outside institution and reviewed at [facility] demonstrates the following staining profile in glandular component: Positive: p16 (patchy), MN (moderate, 70%), ER (strong, 90%), pancytokeratin, PAX8 Negative: CD45, synaptophysin, chromogranin PMS2: Loss of nuclear expression MLH1, MSH2, MSH6: Intact nuclear expression p53: subclonal overexpression (mutant), in areas with high grade cytologic atypia Immunohistochemistry performed at the outside institution and reviewed at [facility] demonstrates the following staining profile in the undifferentiated component: Positive: p16 (diffuse), synaptophysin, chromogranin (patchy), PAX8 (weak) Negative: CD45, MN, ER, pancytokeratin PMS2: Loss of nuclear expression MLH1, MSH2, MSH6: intact nuclear expression p53: wild-type Per report, immunohistochemistry performed at the outside institution demonstrated retained nuclear expression of SMARCB1 and SMARCA4. B. ENDOMETRIUM; CURETTAGE ([id number]; 07/20/25 ): - HIGH GRADE ENDOMETRIAL CARCINOMA, [...] counseling is recommended. 5 1:06 PM EST [facility] PATH[facility] at 1306 EST Additional Pathologists Geovany Garcia MBBS - Pathology Fellow 5 1:06 PM EST [facility] PATH[facility] Clinical History Gynecologic Cancer 5 1:06 PM EST [facility] PATH[facility] Materials Received A. Endometrium; ENDOMETRIUM, POLYPECTOMY 07/20/25 [id number] - 09/24/2025 Blocks: 0 Stained Slides: 25 Number of Unstained Slides: 0 B. Endometrium; CURETTAGE 07/20/25 [id number] - 09/24/2025 Blocks: 0 Stained Slides: 13 Number of Unstained Slides: 0 Stained Slides Received: A1-1 A1 A1-2 A1 A1-3 A2 A1-4 A2 A1-5 A3 A1-6 A3 A1-7 A3 A1-8 A4 A1-9 A4 A1-10 A5 A1-11 A5 A1-12 -13 CD45 A1-14 SYNAP A1-15 CHROM A1-16 MN A1-17 ER A1-18 PAYTON CK A1-19 PAX8 A1-20 MSH2 A1-21 PMS2 A1-22 MLH1 A1-23 MSH2 A1-24 -25 MSH6 B1-1 B1 B1-2 B1 B1-3 B2 B1-4 B2 B1-5 CD45 B1-6 PAYTON CK B1-7 CHROM B1-8 ER B1-9 PAX8 B1-10 PMS2 B1-11 MN B1-12 P16 B1-13 SYNAP 1:06 PM EST [facility] Result Priority Level Routine 1:06 PM EST [facility] Disclaimer By their signature above, the [...] larger than those provided in this report. 1:06 PM EST [facility] Consult (Endometrium) 09/24/2025 8:55 AM EST 09/24/2025 8:56 AM EST Consult (Endometrium) 09/24/2025 8:55 AM EST 09/27/2025 12:10 PM EST us Monica Kelsey MD LAB PATHOLOGY ORDERABLES Final R esult [facility] * XR SHOULDER 2 VIEWS (LEFT) (09/01/2025 10:16 PM EDT) Anatomical Region Laterality Modality Shoulder Left Computed Radiogr aphy 09/01/2025 10:2 4 PM EDT Impressions 09/01/2025 10:24 PM EDT No fracture or dislocation. Narrative 09/01/2025 10:24 PM EDT XR SHOULDER 2 OR MORE VIEWS (LEFT) Referring clinician's provided indication for this examination in Epic: Pain COMPARISON: None FINDINGS: No fracture. Normal glenohumeral alignment. Mild degenerative changes in the acromioclavicular and glenohumeral joints. Procedure Note Dejan Salcido MD, RAYMON - 09/01/2025 XR SHOULDER 2 OR MORE VIEWS (LEFT) Referring clinician's provided indication for this examination in Epic:Pain COMPARISON: None FINDINGS: No fracture. Normal glenohumeral alignment. Mild degenerative changes inthe acromioclavicular and glenohumeral joints. IMPRESSION: No fracture or dislocation. us Bethanie Han O'Day PA-C IMG XR UPPER EXTREMITY Cristela l Result * XR CHEST PA AND LATERAL 2 VIEWS (09/01/2025 10:16 PM EDT) Anatomical Region Laterality Modality Chest Computed Radiogr aphy 09/01/2025 11:5 3 PM EDT Impressions 09/01/2025 11:55 PM EDT Pneumoperitoneum is present, expected in the immediate postoperative setting (patient underwent hysterectomy 08/31/2025). No pneumonia. Narrative 09/01/2025 11:55 PM EDT XR CHEST PA AND LATERAL 2 VIEWS INDICATION: Pain; Post-Op COMPARISON: None. FINDINGS: Devices / Tubes / Lines: None. Lungs: No focal airspace opacities. Pleura: No pleural effusion. No pneumothorax. Heart / Mediastinum: Normal cardiac silhouette. Bones / Soft Tissues: Pneumoperitoneum. Remote healed right middle clavicular fracture. Procedure Note Brett Hamilton MD - 09/01/2025 XR CHEST PA AND LATERAL 2 VIEWS INDICATION: Pain; Post-Op COMPARISON: None. FINDINGS: Devices / Tubes / Lines: None. Lungs: No focal airspace opacities. Pleura: No pleural effusion. No pneumothorax. Heart / Mediastinum: Normal cardiac silhouette. Bones / Soft Tissues: Pneumoperitoneum. Remote healed right middleclavicular fracture. IMPRESSION: Pneumoperitoneum is present, expected in the immediate postoperativesetting (patient underwent hysterectomy 08/31/2025). No pneumonia. Bethanie MCKEE-C IMG XR CHEST Final Resul t * LFTs (hepatic panel) (09/01/2025 9:18 PM EDT) ALBUMIN 4.0 3.3 - 5.0 g/dL [facility] TOTAL BILIRUBIN 0.5 0.0 - 1.0 mg/dL [facility] DIRECT BILIRUBIN 0.2 0.0 - 0.3 mg/dL [facility] ALKALINE PHOSPHATASE 58 30 - 100 U/L [facility] AST 14 9 - 32 U/L [facility] ALT 13 7 - 33 U/L [facility] TOTAL PROTEIN 6.5 6.0 - 8.3 g/dL [facility] GLOBULIN 2.5 1.9 - 4.1 g/dL [facility] Blood 09/01/2025 9:18 PM EDT 09/01/2025 9:33 PM EDT Bethanie MCKEE-C LAB BLOOD BKR ORDERABLES Fi nal Result [address] [address] * (ABNORMAL) CBC and differential (09/01/2025 9:18 PM EDT) Only the most recent of2 resultswithin the time period is included. WBC 8.16 4.00 - 11.00 K/uL [facility] RBC 3.96(L) 4.00 - 5.20 M/uL [facility] HGB 11.5(L) 12.0 - 16.0 g/dL [facility] HCT 36.5 36.0 - 46.0 % [facility] PLT 176 150 - 450 K/uL [facility] MCV 92.2 80.0 - 100.0 fL [facility] MCH 29.0 27.0 - 31.0 pg [facility] MCHC 31.5(L) 32.0 - 36.0 g/dL [facility] RDW 13.0 11.5 - 14.5 % [facility] MPV 10.4 8.4 - 12.0 fL [facility] NRBC 0.00 0.00 /100 WBCs [facility] ABSOLUTE NRBC 0.00 0.00 K/uL [facility] DIFF METHOD Auto [facility] NEUTS 77.9(H) 48.0 - 76.0 % [facility] LYMPHS 12.3(L) 18.0 - 41.0 % [facility] MONOS 8.3 4.0 - 11.0 % [facility] EOS 0.5 0.0 - 5.0 % [facility] BASOS 0.5 0.0 - 1.5 % [facility] % IMMATURE GRANS 0.5 0.0 - 0.9 % [facility] ABSOLUTE NEUTS 6.36 1.92 - 7.60 K/uL [facility] ABSOLUTE LYMPHS 1.00 0.72 - 4.10 K/uL [facility] ABSOLUTE MONOS 0.68 0.16 - 1.10 K/uL [facility] ABSOLUTE EOS 0.04 0.00 - 0.50 K/uL [facility] ABSOLUTE BASOS 0.04 0.00 - 0.15 K/uL [facility] ABS IMMATURE GRANS 0.04 0.00 - 0.09 K/uL [facility] Blood 09/01/2025 9:18 PM EDT 09/01/2025 9:33 PM EDT Bethanie MCKEE-C LAB BLOOD BKR ORDERABLES Fi nal Result [facility] [address] [place] [address] * Troponin (09/01/2025 9:18 PM EDT) Troponin-T, HS Gen5 <6 0 - 9 ng/L [facility] Blood 09/01/2025 9:18 PM EDT 09/01/2025 9:33 PM EDT Bethanie Chavarria'Renee PA-C LAB BLOOD BKR ORDERABLES Fi nal Result [address] [address] * Magnesium (09/01/2025 9:18 PM EDT) MAGNESIUM 1.8 1.7 - 2.4 mg/dL [facility] Blood 09/01/2025 9:18 PM EDT 09/01/2025 9:33 PM EDT Nativo O'Day PA-C LAB BLOOD BKR ORDERABLES Fi nal Result Performing Organization Address [facility] Co de Phone Number [address] [address] * (ABNORMAL) Basic metabolic panel (09/01/2025 9:18 PM EDT) SODIUM 137 135 - 145 mmol/L [facility] POTASSIUM 3.7 3.4 - 5.0 mmol/L [facility] CHLORIDE 102 98 - 108 mmol/L [facility] CO2 24 23 - 32 mmol/L [facility] BUN 9 8 - 25 mg/dL [facility] CREATININE 0.64 0.50 - 1.00 mg/dL [facility] GLUCOSE 144(H) 70 - 110 mg/dL [facility] CALCIUM 8.8 8.5 - 10.5 mg/dL [facility] EGFR 96 >59 mL/min/1. 73m2 [facility] Comment:Estimated glomerular filtration rate calculated using the CKD-EPI refit equation. ANION GAP 11 3 - 17 mmol/L [facility] Blood 09/01/2025 9:18 PM EDT 09/01/2025 9:33 PM EDT Nativo O'Day PA-C LAB BLOOD BKR ORDERABLES Fi nal Result Performing Organization Address City/[facility] Co de Phone Number [address] [phone] * ECG 12-LEAD (09/01/2025 6:22 PM EDT) Only the most recent of2 resultswithin the time period is included. Systolic Blood Pressure [facility] Diastolic Blood Pressure [facility] Ventricular Rate EKG/MIN 71 BPM [facility] Atrial Rate 71 BPM [facility] [place] Interval 158 ms [facility] QRS Duration 92 ms [facility] QT Interval 392 ms [facility] QTC Interval 425 ms [facility] P [place] 42 degrees [facility] R Wave [place] 35 degrees [facility] T Wave [place] 35 degrees [facility] 09/01/2025 6:22 PM EDT 09/16/2025 10:14 PM EST Narrative [facility] - 09/16/2025 10:14 PM EST LOC: ED DX: CHEST PAIN REF: Jamila GONZALEZ SINUS RHYTHM SINUS ARRHYTHMIA NONSPECIFIC ST SEGMENT AND T WAVE ABNORMALITIES WHEN COMPARED WITH ECG OF 18-Aug-2025 11:19, NO IMPORTANT CHANGE us Protocol [facility] Emergency ECG ORDERABLES Final Res ult [facility] * XR SHOULDER 1 VIEW (RIGHT) (09/01/2025 3:54 PM EDT) Anatomical Region Laterality Modality Shoulder Right Computed Radiogr aphy 09/01/2025 3:55 PM EDT Impressions 09/01/2025 3:57 PM EDT No acute osseous abnormality identified within the limitations of this single view exam. Narrative 09/01/2025 3:57 PM EDT XR SHOULDER 1 VIEW (RIGHT) Referring clinician's provided indication for this examination in [facility]: Pain COMPARISON: CT ABDOMEN/PELVIS OUTSIDE WITH INTERPRETATION OR CONSULT FINDINGS: Single view of the right shoulder demonstrates no specific evidence of acute fracture. Chronic healed right clavicle mid shaft fracture. Normal acromioclavicular alignment. Right subdiaphragmatic free air compatible with prior day abdominopelvic surgery. Procedure Note Gerardo Houser MD - 09/01/2025 XR SHOULDER 1 VIEW (RIGHT) Referring clinician's provided indication for this examination in [facility]:Pain COMPARISON: CT ABDOMEN/PELVIS OUTSIDE WITH INTERPRETATION OR [id number] FINDINGS: Single view of the right shoulder demonstrates no specific evidence ofacute fracture. Chronic healed right clavicle mid shaft fracture. Normalacromioclavicular alignment. Right subdiaphragmatic free air compatiblewith prior day abdominopelvic surgery. IMPRESSION: No acute osseous abnormality identified within the limitations of thissingle view exam. us Madiha Lang PA-C IMG XR UPPER EXT REMITY Final Result * (ABNORMAL) POCT Glucose (09/01/2025 11:41 AM EDT) Only the most recent of6 resultswithin the time period is included. Glucose, POCT 131(H) 70 - 110 mg/dL [facility] 09/01/2025 11:4 1 AM EDT 09/01/2025 11:54 AM EDT Jamie Angulo MD POINT OF CARE TEST O RDERABLES Final Result [address] [address] * (ABNORMAL) CBC (09/01/2025 4:05 AM EDT) WBC 8.47 4.00 - 11.00 K/uL [facility] RBC 3.98(L) 4.00 - 5.20 M/uL [facility] HGB 11.8(L) 12.0 - 16.0 g/dL [facility] HCT 36.1 36.0 - 46.0 % [facility] PLT 169 150 - 450 K/uL [facility] MCV 90.7 80.0 - 100.0 fL [facility] MCH 29.6 27.0 - 31.0 pg [facility] MCHC 32.7 32.0 - 36.0 g/dL [facility] RDW 12.8 11.5 - 14.5 % [facility] MPV 10.8 8.4 - 12.0 fL [facility] NRBC 0.00 0.00 /100 WBCs [facility] ABSOLUTE NRBC 0.00 0.00 K/uL [facility] Blood 09/01/2025 4:05 AM EDT 09/01/2025 4:12 AM EDT Madiha Lang PA-C LAB BLOOD BKR OR DERABLES Final Result [address] [address] * Anatomic Pathology (08/31/2025 2:46 PM EDT) 08/31/2025 2:46 PM EDT 08/31/2025 4:35 PM EDT Narrative SEE NARRATIVE - 09/09/2025 11:02 AM EDT [address], [place] [address] Surgical Pathology Report Patient Name: KEENA LEHMAN : 1955 (Age: 70) Sex: F Location: [facility] Institution: [facility] Date of Operation: 08/31/2025 Date of Reported: 09/09/2025 11:02 Results To: Jamie Asencio PA-C, MS FINAL PATHOLOGIC DIAGNOSIS: A. 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 Note: Immunohistochemical stains for cytokeratin AE1.3/Cam5.2, [id number], Keratin 7, and WS Keratin were examined on tissue levels from 4 blocks. B. RIGHT AORTIC LYMPH NODE EXCISION: One lymph node, negative for carcinoma (0/1). C. OMENTUM EXCISION: Fibroadipose tissue, negative for carcinoma. D. LEFT AORTIC SENTINEL LYMPH NODE EXCISION: Three lymph nodes, negative for carcinoma (0/3), see note. Note: Immunohistochemical stains for cytokeratin AE1.3/Cam5.2, [id number], Keratin 7, and WS Keratin were examined on tissue levels from 4 blocks. E. 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 - Adenomyosis. - Leiomyoma. Right ovary: Incidental mucinous cystadenofibroma. Left ovary: No diagnostic abnormality recognized. Fallopian tubes: No diagnostic abnormality recognized. Note: The tumor consists of a small component of grade 1 endometrioid adenocarcinoma (10%) which abruptly transitions to an undifferentiated carcinoma (90%). Focal lymphovascular invasion is present (<3 vessels). The cervical stroma is not involved. The well-differentiated component stains strongly positive for keratin AE1.3/CAM5.2, ER, PAX8, and claudin-4, while the undifferentiated component is negative for all four markers. Both components show loss of PMS2 with preserved expression of MLH1, MSH2, and MSH6. BRG1 and INI1 are preserved. BRM shows relative but incomplete loss in the undifferentiated component. ARID1A shows subclonal loss in the well-differentiated component and complete loss in the undifferentiated component. p53 shows wild-type (normal) expression. 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 SYNOPTIC REPORT: ENDOMETRIAL CANCER PARTS INCLUDED: All parts of this case SPECIMEN PROCEDURE: Total hysterectomy and bilateral salpingo-oophorectomy TUMOR TUMOR SIZE: 5.5 cm in greatest dimension HISTOLOGIC TYPE: Dedifferentiated carcinoma MYOMETRIAL INVASION: Present DEPTH OF MYOMETRIAL INVASION: 5 mm MYOMETRIAL THICKNESS: 15 mm PERCENTAGE OF MYOMETRIAL INVASION: 33% CERVICAL STROMA INVOLVEMENT: Not identified UTERINE SEROSA INVOLVEMENT: Not identified OTHER TISSUE/ORGAN INVOLVEMENT: Not identified LYMPHOVASCULAR INVASION: Present - focal, <3 vessels REGIONAL LYMPH NODES REGIONAL LYMPH NODE STATUS: Tumor present in pelvic lymph node(s) PELVIC LYMPH NODES WITH TUMOR TOTAL NUMBER OF PELVIC NODES WITH MACROMETASTASIS: 1 NUMBER OF PELVIC SENTINEL NODES WITH MACROMETS: 1 TOTAL NUMBER OF PELVIC NODES WITH MICROMETASTASIS: 0 TOTAL NUMBER OF PELVIC NODES WITH ISOLATED TUMOR CELLS (ITCs): 0 LATERALITY OF PELVIC NODE(S) WITH TUMOR: Right (macromet) REGIONAL LYMPH NODES EXAMINED TOTAL NUMBER OF PELVIC NODES EXAMINED: 1 NUMBER OF PELVIC SENTINEL NODES EXAMINED: 1 TOTAL NUMBER OF PARA-AORTIC NODES EXAMINED: 4 NUMBER OF PARA-AORTIC SENTINEL NODES EXAMINED: 3 pTNM STAGE CLASSIFICATION (AJCC 8th ed) pT CATEGORY: pT1a pN CATEGORY: pN1a FIGO STAGE (2018 FIGO CANCER REPORT): IIIC1 ANCILLARY STUDIES MISMATCH REPAIR (MMR) PROTEIN EXPRESSION: Loss of expression MMR PROTEINS WITH LOSS OF EXPRESSION: hPMS2 PRESERVED MMR PROTEINS: hMLH1; hMSH2; hMSH6 Electronically Signed Out By Rohan Lopez MD Resident Pathologist: Alyssa Weaver MD By his/her signature above, the pathologist listed as making the Final Diagnosis certifies that he/she has personally reviewed the case and confirmed the diagnosis. All slides and stains were of sufficient quality to establish the diagnosis, unless otherwise stated. CLINICAL HISTORY Endometrial cancer SPECIMENS SUBMITTED: A: RIGHT PELVIC SENTINEL LYMPH NODE EXCISION B: RIGHT AORTIC LYMPH NODE EXCISION C: OMENTUM EXCISION D: LEFT AORTIC SENTINEL LYMPH NODE EXCISION E: UTERUS, BILATERAL OVARIES AND FALLOPIAN TUBES, HYSTERECTOMY AND BILATERAL SALPINGO-OOPHORECTOMY GROSS DESCRIPTION Received are 5 containers labeled Keena Lehman, . A. Received fresh labeled right pelvic sentinel lymph node is a 4.0 x 2.3 x 2.1 cm lymph node with moderate attached fat. The specimen has a pink-white, focally hemorrhagic cut surface. The specimen is submitted entirely in A1-A4. B. Received fresh labeled right aortic lymph node is a 2.5 x 1.2 x 0.6 cm lymph node with moderate attached fat. The specimen is submitted entirely as follows: B1: Lymph node. B2: Remaining fat. C. Received fresh labeled omental biopsy is a 10.5 x 5.2 x 1.5 cm piece of omentum. The specimen has a yellow, lobulated cut surface with interspersed blood vessels and membranous tissue. No masses or lesions are seen. Rotary Saw Operator sections are submitted in C1-C5. D. Received fresh labeled left aortic sentinel lymph node is a 3.5 x 3.0 x 1.0 cm piece of fat containing 3 lymph nodes ranging from 1.0 x 0.6 x 0.6 cm to 1.5 x 1.2 x 0.6 cm. The specimen is submitted entirely as follows: D1-D2: Largest lymph node, serially sectioned. D3: 1 lymph node, bisected. D4: 1 lymph node, bisected. E. Received fresh labeled uterus with cervix and bilateral ovaries and fallopian tubes is a 136 g, 10.0 x 6.5 x 6.0 cm uterus with attached 2.2 x 1.2 x 1.1 cm right ovary, 6.6 x 0.6 cm fimbriated right fallopian tube, 2.5 x 1.5 x 1.5 cm left ovary, and 6.5 x 0.5 cm fimbriated left fallopian tube. The ectocervix is pink and smooth. There is a central 1.5 cm slitlike, patent os. The endocervix has perez, herringbone mucosa. The 5.5 x 5.5 cm triangular endometrial cavity displays a 5.5 x 5.5 cm exophytic tumor, filling the entire endometrial cavity, arising from the posterior wall/fundus. The tumor has a glistening white, friable cut surface and measures up to 3.2 cm thick. The tumor extends 0.1 cm into the myometrium that averages 1.5 cm thick. The uninvolved endometrium is pink and smooth, averaging 0.1 cm thick. The myometrium is perez and trabecular, and contains a 1.0 x 1.0 x 0.9 cm whorled white, intramural mass, deep to the tumor. The serosa is connell-purple and smooth. The ovaries have perez-yellow, soft cut surfaces and the fallopian tubes unremarkable, stellate, pinpoint lumens. The anterior cervix is inked blue and the posterior cervix is inked black. A gross photograph is taken. Rotary Saw Operator sections are submitted as follows: E1: Anterior cervix. E2: Posterior cervix. E3: Anterior lower uterine segment. E4: Posterior uterine segment. E5-E6: Full-thickness cross-section through tumor, bisected, posterior corpus (corresponding cut edges inked yellow). E7-E8: Full-thickness cross-section through tumor, bisected, posterior corpus (corresponding cut edges inked yellow). E9-E14: Additional guest services representative sections of tumor (intramural mass in E14). E15: Anterior corpus, normal. E16-E18: Right ovary, entirely submitted. E19-E21: Right fallopian tube, entirely submitted. E22-E24: Left ovary, entirely submitted. E25-E28: Left fallopian tube, entirely submitted. Grossed by: Santosh Cardenas Immunohistochemical and in-situ hybridization tests performed at [facility] have been developed and their performance characteristics determined by the Immunohistochemistry Laboratories in the Department of Pathology at [facility]. They have not been cleared or approved by the U.S.Food and Drug Administration (FDA); the FDA has determined that such clearance or approval is not necessary. Jamie Angulo MD LAB PATHOLOGY ORDERA BLES Final Result SEE NARRATIVE * ANES ETT DOUBLE LUMEN - AIRWAY LDA (08/31/2025 1:28 PM EDT) Narrative Rachna Small CRNA - 08/31/2025 1:28 PM EDT Rachna Small CRNA 08/31/2025 1:52 PM Airway Placement Procedure Note: Patient was not difficult to intubate. Procedure performed by: fellow/resident/TRACTOR DISTRIBUTOR Anesthesiologist: Kofi Alves MD Fellow/Resident/TRACTOR DISTRIBUTOR: Rachna Small CRNA Airway procedure initiated at:08/31/2025 1:28 PM and ended at. Personal Protective Equipment: Mask: surgical mask Gloves: gloves Mask Ventilation: Quality: easy Airway Placement: Technique: direct laryngoscopy Rapid sequence induction: no Details: Blade type: Mac Blade size: 3 Direct view: grade 1 Number of attempts: 1 ETT type: cuffed ETT size: 7.0 ETT depth at teeth: 21 ETT cuff inflation volume: 8 Tube position confirmed by: bilateral breath sounds and EtCO2 Bite Block: soft and molar Bite Block placement time: 08/31/2025 1:28 PM Outcomes: Evidence of dental injury? no Complications observed? no Result [facility] Kofi Alves MD [place] ANESTHESIA Final Result * ABO and Rh (08/31/2025 1:08 PM EDT) Expiration Date of Sample 09/03/2025 11:59 PM [facility] ABO A 08/31/2025 2:04 PM EDT [facility] Rh Positive 08/31/2025 2:04 PM EDT [facility] Resulting Agency [facility] 08/31/2025 1:08 PM EDT 08/31/2025 1:20 PM EDT Blood Bank LAB BLOOD BANK TEST ORDERABLES F inal Result [address] [address] * Type and Screen (ABO,Rh,Antibody Screen) (08/31/2025 1:08 PM EDT) Expiration Date of Sample 09/03/2025 11:59 PM [facility] ABO A 08/31/2025 2:11 PM EDT [facility] Rh Positive 08/31/2025 2:11 PM EDT [facility] Resulting Agency [facility] Antibody Screen Negative 08/31/2025 2:10 PM EDT [facility] Blood 08/31/2025 1:08 PM EDT 08/31/2025 1:20 PM EDT Kofi Alves MD LAB BLOOD BANK TEST OR DERABLES Final Result Performing Organization Address City/[facility]/ZIP Co de Phone Number [address] [address] * Outside Pathology Review (08/29/2025 12:00 AM EDT) 08/29/2025 08/29/2025 8:0 2 AM EDT Narrative SEE NARRATIVE - 08/29/2025 2:03 [place] [address] Surgical Pathology Outside Consultation Patient Name: KEENA LEHMAN : 1955 (Age: 70) Sex: F Location: [facility] Institution: [facility] Date of Reported: 08/29/2025 14:03 Results To: Jamie Angulo MD FINAL PATHOLOGIC DIAGNOSIS: Consult materials received from [facility], [place], [place]. A. ENDOMETRIUM, POLYPECTOMY ([id number], A1-A5; 07/20/2025): - High-grade carcinoma, favor dedifferentiated carcinoma (see note). B. ENDOMETRIUM, CURETTAGE ([id number], B1-B2; 07/20/2025): - High-grade carcinoma, favor dedifferentiated carcinoma. Note: The tumor is a high-grade carcinoma with a biphasic appearance, composed of a gland-forming component admixed with an undifferentiated component. The gland-forming component exhibits variable cytologic atypia, ranging from foci consistent with low-grade endometrioid carcinoma to areas of marked nuclear pleomorphism resembling serous carcinoma. The undifferentiated component comprises discohesive sheets of tumor cells with high nuclear-cytoplasmic ratio, at least moderate nuclear pleomorphism, and areas of necrosis. Submitted immunohistochemical stains show the following results: d Payton-keratin: diffusely positive in the glandular component, focally positive in the undifferentiated component. d ER, MN: positive in the glandular component, negative in the undifferentiated component. d PAX8: strongly positive in the glandular component, weakly positive in the undifferentiated component. d p53: abnormal/mutated overexpression in the glandular component with high-grade atypia, wild-type expression in the lower-grade glandular component and undifferentiated component. d Synaptophysin: diffusely positive in the undifferentiated component, negative in the glandular component. d Chromogranin: patchy positive in the undifferentiated component, negative in the glandular component. d MLH1, MSH2, MSH6: preserved expression in all components. d PMS2: loss of expression in all components. d CD45: negative in all components. d SMARCB1, SMARCA4: preserved expression by report. The tumor morphology combined with the immunophenotype is most consistent with dedifferentiated carcinoma. Expression of neuroendocrine markers has previously been described in undifferentiated carcinoma and, in the absence of the appropriate morphology, would be considered insufficient for classifying this tumor as a neuroendocrine carcinoma. Electronically Signed Out By Irasema Couch MD By his/her signature above, the pathologist listed as making the Final Diagnosis certifies that he/she has personally reviewed the case and confirmed the diagnosis. All slides and stains were of sufficient quality to establish the diagnosis, unless otherwise stated. CLINICAL HISTORY Endometrial polyp by ultrasound. SPECIMENS SUBMITTED: A: ENDOMETRIUM, POLYPECTOMY ([id number], A1 TO A5; 07/20/2025) B: ENDOMETRIUM, CURETTAGE ([id number], B1, B2; 07/20/2025) SLIDE-BLOCK DESCRIPTION: Consult materials received from [facility], [place], [place] on 08/29/2025. A. ENDOMETRIUM, POLYPECTOMY ([id number], A1-A5; 07/20/2025): Stained Slides: 34 Unstained slides: 0 Blocks: 0 B. ENDOMETRIUM, CURETTAGE ([id number], B1-B2; 07/20/2025): Stained Slides: 4 Unstained slides: 0 Blocks: 0 Private Consultation Jamie Angulo MD PATHOLOGY ORDERABLES Final Result Performing Organization Address City/[facility]/ZIP Co de Phone Number SEE NARRATIVE * (ABNORMAL) Comprehensive metabolic panel (08/18/2025 11:25 AM EDT) SODIUM 142 135 - 145 mmol/L [facility] POTASSIUM 4.2 3.4 - 5.0 mmol/L [facility] CHLORIDE 109(H) 98 - 108 mmol/L [facility] CO2 22(L) 23 - 32 mmol/L [facility] BUN 9 8 - 25 mg/dL [facility] CREATININE 0.48(L) 0.50 - 1.00 mg/dL [facility] GLUCOSE 91 70 - 110 mg/dL [facility] ALBUMIN 4.5 3.3 - 5.0 g/dL [facility] TOTAL PROTEIN 7.0 6.0 - 8.3 g/dL [facility] CALCIUM 8.7 8.5 - 10.5 mg/dL [facility] ALKALINE PHOSPHATASE 70 30 - 100 U/L [facility] TOTAL BILIRUBIN 0.3 0.0 - 1.0 mg/dL [facility] AST 19 9 - 32 U/L [facility] ALT 14 7 - 33 U/L [facility] GLOBULIN 2.5 1.9 - 4.1 g/dL [facility] EGFR 103 >59 mL/min/1. 73m2 [facility] Comment:Estimated glomerular filtration rate calculated using the CKD-EPI refit equation. ANION GAP 11 3 - 17 mmol/L [facility] 08/18/2025 11:2 5 AM EDT 08/18/2025 11:57 AM EDT Jamie Angulo MD LAB BLOOD BKR ORDERA BLES Final Result [facility] [address] [place] [address] * PTT (08/18/2025 11:25 AM EDT) APTT 29.8 24.0 - 37.5 sec [facility] Comment:Check MAR for the ta rget range that is ordered for your patient. 08/18/2025 11:2 5 AM EDT 08/18/2025 11:57 AM EDT Jamie Angulo MD LAB BLOOD BKR ORDERA BLES Final Result [address] [address] * PT-INR (08/18/2025 11:25 AM EDT) PT 10.3 10.0 - 13.0 sec [facility] INR 0.9 0.9 - 1.1 [facility] 08/18/2025 11:2 5 AM EDT 08/18/2025 11:57 AM EDT Jamie Angulo MD LAB BLOOD BKR ORDERA BLES Final Result Performing Organization Address City/[facility]/ZIP Co de Phone Number [address] [address] * (ABNORMAL) Hemoglobin A1c (08/18/2025 11:25 AM EDT) HEMOGLOBIN A1C 5.9(H) 4.3 - 5.6 % [facility] Comment:HbA1c levels 5.7-6.4 % represent pre-diabetes, indicating impaired glucose control and an increased risk of developing diabetes compared with lower HbA1c levels. The diagnostic HbA1c level for diabetes is 6.5% or greater. CALC MEAN BLD GLUC 123 mg/dL [facility] Comment:There is no establis hed normal range for the Calculated Mean Blood Glucose (CMBG), however a HbA1c of 5.6% (upper limit of normal) represents a CMBG of 114 mg/dL. The diagnostic hemoglobin A1c level for diabetes is greater than or equal to 6.5% which represents a CMBG greater than or equal to 140 mg/dL. 08/18/2025 11:2 5 AM EDT 08/18/2025 11:57 AM EDT us Jamie Angulo MD LAB BLOOD BKR ORDERA BLES Final Result [facility] [address] [place] [address] * CT Abdomen/Pelvis Outside with Interpretation or Consult (08/11/2025 12:00 AM EDT) 08/18/2025 8:05 AM EDT Impressions [facility] - 08/18/2025 8:24 AM EDT * Heterogeneous endometrium reflecting known malignancy (now post hysterectomy). * Prominent mesenteric nodes measuring up to 8 mm. * 10 mm borderline-enlarged lymph node at the right iliac bifurcation. Narrative [facility] - 08/18/2025 8:[address] ABDOMEN/PELVIS OUTSIDE WITH INTERPRETATION OR CONSULT Referring clinician's provided indication for this examination in Epic: High Grade Mullerian Carcinoma TECHNIQUE: CT of the abdomen and pelvis, without intravenous contrast. COMPARISON: None FINDINGS: Lower Chest: The lung bases are clear. The heart size is normal. There is no pericardial or pleural effusion. Liver: The liver contour is smooth. The hepatic parenchyma demonstrates normal density. No concerning hepatic lesion is detected. Biliary: The gallbladder is resected. No radiopaque stones are seen. Spleen: The spleen size is normal. Pancreas: The pancreas is atrophic, without duct dilation. Adrenal Glands: The adrenal glands are normal in size and shape. Kidneys/Ureters: The kidneys are normal in size without hydronephrosis. Bowel: The stomach and intra-abdominal and intrapelvic loops of small and large bowel are normal in caliber. The patient is post gastric bypass and right hemicolectomy. Peritoneum/Retroperitoneum: There is no ascites or free air. Lymph Nodes: Prominent mesenteric nodes measure up to 8 mm (3:28). There is an enlarged 10 mm node at the right iliac bifurcation (8:502). Pelvic Organs/Bladder: The bladder is slightly distended without wall thickening. The uterus is anteverted and normal in size. The endometrium appears heterogeneous and thickened. No adnexal masses are seen. The ovaries appear normal (8:543, 577). Vessels: The abdominal aorta and iliac branches demonstrate mild atherosclerotic calcifications, without aneurysm. Bones/Soft Tissues: There are no osseous lesions concerning for malignancy or infection. Procedure Note Ilia Evans MD, PhD - 08/18/2025 CT ABDOMEN/PELVIS OUTSIDE WITH INTERPRETATION OR CONSULT Referring clinician's provided indication for this examination in Epic:High Grade Mullerian Carcinoma TECHNIQUE: CT of the abdomen and pelvis, without intravenous contrast. COMPARISON: None FINDINGS: Lower Chest: The lung bases are clear. The heart size is normal. There isno pericardial or pleural effusion. Liver: The liver contour is smooth. The hepatic parenchyma demonstratesnormal density. No concerning hepatic lesion is detected. Biliary: The gallbladder is resected. No radiopaque stones are seen. Spleen: The spleen size is normal. Pancreas: The pancreas is atrophic, without duct dilation. Adrenal Glands: The adrenal glands are normal in size and shape. Kidneys/Ureters: The kidneys are normal in size without hydronephrosis. Bowel: The stomach and intra-abdominal and intrapelvic loops of small andlarge bowel are normal in caliber. The patient is post gastric bypass andright hemicolectomy. Peritoneum/Retroperitoneum: There is no ascites or free air. Lymph Nodes: Prominent mesenteric nodes measure up to 8 mm (3:28). Thereis an enlarged 10 mm node at the right iliac bifurcation (8:502). Pelvic Organs/Bladder: The bladder is slightly distended without wallthickening. The uterus is anteverted and normal in size. The endometriumappears heterogeneous and thickened. No adnexal masses are seen. Theovaries appear normal (8:543, 577). Vessels: The abdominal aorta and iliac branches demonstrate mildatherosclerotic calcifications, without aneurysm. Bones/Soft Tissues: There are no osseous lesions concerning for malignancyor infection. IMPRESSION: * Heterogeneous endometrium reflecting known malignancy (now posthysterectomy). * Prominent mesenteric nodes measuring up to 8 mm. * 10 mm borderline-enlarged lymph node at the right iliac bifurcation. us Jamie Angulo MD IMG OUTSIDE IMAGING W/ INTERPRETATION Final Result [facility] [place] [address] [place] [address] from Last 3 Months Insurance [facility] MEDICARE SUPPLEMENT MEDICARE PART A & B [facility] MEDICARE SUPPLEMENT MEDICARE PART A & [place] [address] [place] [address] [place] [address] [place] [address] MEDICARE SUPPLEMENT [facility] MEDICARE SUPPLEMENT MEDICARE PART A & B [facility] [employer] MEDICARE SUPPLEMENT MEDICARE PART A & [place] [address] [place] [address] MEDICARE SUPPLEMENT MEDICARE PART A & B [facility] MEDICARE SUPPLEMENT [facility] [employer] MEDICARE SUPPLEMENT MEDICARE PART A & B Care Teams Training Program Assistant Relationship Specialty Start Date End Date Amie Salmeron MD [address] [place] [address] PCP - General Internal Medicine 06/25/21 Additional Source Comments The information contained in this document represents components of the legal health record. It is not the complete legal health record.[facility]
--- OUTSIDE RECORDS SUMMARY | 2025-09-29 02:46 | XMS_ITS | Encounter Summary ---
Author Organization [facility]ly [facility] Address [address] [place] [phone] Phone Care Team Providers Care Domestic Maid Name Role Phone Amie Salmeron MD Primary Care Provider [phone] Encounter Details Date Type Department Care Team (Late st Contact Info) Description 09/27/2025 Orders Only [facility], [facility], [facility] [address] [place] [address], 10[address] [place] [address] Therese Mayberry NP [address] [place] [address] [email or web address] Social History Tobacco Use Types Packs/Day Years [...] 8:50 AM EST Blood Draw Laboratory Services, [facility] [place] [address] [address] Monica Kelsey MD [address] [place] [address] [email or web address] 09/29/2025 9:30 AM EST Office Visit [facility], [facility], [facility] at [address] [address] Therese Mayberry NP [address] [place] [phone] [email or web address] Monica Kelsey MD [address] [place] [id number] [email or web address] 09/29/2025 10:30 AM EST Infusion Infusion Therapy Services [facility] at [address] [address] Monica Kelsey MD [address] [place] [id number] [email or web address] Lydia Weaver, BONI [address] [place] [phone] [email or web address] 09/29/2025 10:30 AM EST Evaluation Infusion Therapy Services [facility] at [address] [address] Monica Kelsey MD [address] [place] [phone] [email or web address] 10/04/2025 11:00 AM EST Appointment Department of Radiation Oncology [address] [place] [phone] Toño Soliz MD [address] [place] [phone] [email or web address] 03/30/2026 8:40 AM EDT Office Visit [facility] [place] [facility] Oncology [address] [facility], 9th Floor, [address] [place] [address] Jamie Angulo MD [address] [facility] Obstetrics and Gynecology [address] [place] [address] [email or web address] [email or web address] documented as of this encounter Visit Diagnoses Not on filedocumented in this encounter Care Teams Domestic Maid Relationship Specialty Start Date End Date Amie Salmeron MD [facility] [place] [address] PCP - General Internal Medicine 06/25/21 documented as of this encounter Additional Source Comments The information contained in this document represents components of the legal health record. It is not the complete legal health record.[facility]
== END 2025-09-28 15:41 | disposition home or self-care (01) ==
LOC: HO.HMCC 14:20
PROVIDERS: PCP Internal Medicine; Visit Provider Internal Medicine
DX: E11.9 Type 2 diabetes mellitus without complications (principal); C54.1 Malignant neoplasm of endometrium; F43.10 Post-traumatic stress disorder, unspecified

== ENCOUNTER → 2025-09-28 14:20 | Outpatient (BNVA) | payer MEDICARE, OTHER, SELFPAY | PROVIDERS: PCP Internal Medicine; Visit Provider Internal Medicine | DX: E11.9 Type 2 diabetes mellitus without complications (principal); C54.1 Malignant neoplasm of endometrium; F43.10 Post-traumatic stress disorder, unspecified | CPT/HCPCS: 99212 ==